=== PATIENT | female | born 1950 | race Caucasian/White ===

== ENCOUNTER 2019-07-08 12:31 | Outpatient (CLI) | payer MEDICARE, MEDICAID, SELFPAY ==
--- NOTE | ~2019-07-08 | US_ITS ---
EXAMINATION: US thyroid DATE: 07/08/2019 13:20 INDICATION: Thyroid nodule TECHNIQUE: Multiple ultrasound images of the thyroid were obtained. COMPARISON: 03/12/2018 and 04/09/2018 FINDINGS: The right thyroid lobe measures 4.4 x 2.1 x 2.0 cm. The left thyroid lobe measures 5.0 x 2.4 x 2.1 c m. Bilateral thyroid nodules. These include a 1.1 cm smooth margined wider than tall predominant cyndi id isoechoic to hypoechoic nodule in the right thyroid (TI-RADS 4, moderately suspicious , FNA if >=1 .5 cm, annual followup is >1 cm). There are several small similar-appearing subcentimeter cysts in th e right thyroid lobe. No interval change in a larger iso to slightly hypoechoic solid nodule or more likely pair of nodules, one with peripheral coarse shadowing calcification at the mid to lower left t hyroid lobe. The nodule/combined nodule measures 3.4 x 1.7 x 2.4 cm, previously measuring 3.4 x 1.7 x 2.2 cm with prior biopsy pathology results of consistent with benign follicular nodule with feature s of colloid cyst. IMPRESSION: 1. Bilateral thyroid nodules with no interval change in the largest 3.4 cm left thyroid nodule (or po tentially closely apposed pair of nodules) with previous benign biopsies. Given the lack of interval growth and no other nodules meeting criteria for biopsy, the initially planned biopsy was canceled. Reviewed, dictated and finalized at location A. TING AGENT IMPRESSION: 1. Bilateral thyroid nodules with no interval change in the largest 3.4 cm left thyroid nodule (or potentially closely apposed pair of nodules) with previous benign biopsies. Given the lack of interval growth and no other nodules meeting criteria for biopsy, the initially planned biopsy was canceled.
== END 2019-07-08 12:32 | disposition home or self-care (01) ==
LOC: ANHIMG 12:33
PROVIDERS: PCP Internal Medicine; Visit Provider Otolaryngology
DX: E04.1 Nontoxic single thyroid nodule (principal)
CPT/HCPCS: 10005; 76536

== ENCOUNTER 2019-07-15 09:44 | Outpatient (CLI) | payer MEDICARE, MEDICAID, SELFPAY ==
[2019-07-15 10:14] LABS: Basophils Percent Auto 0.4 % (0.2-1.2); Eosinophils Absolute Auto 0.1 K/mm3 (0-0.3); Eosinophils Percent Auto 1.7 % (0-4.4); Hematocrit 36.2 % (37.0-47.0); Hemoglobin 10.7 g/dL (12.0-15.0); Immature Granulocyte Absolute 0.02 K/mm3 (0.00-0.031); Immature Granulocyte Percent A 0.3 % (0-0.5); Lymphocytes Absolute Auto 1.66 K/mm3 (0.9-3.2); Lymphocytes Percent Auto 22.9 % (18.3-44.2); Mean Corpuscular HGB Conc 29.6 g/dl (32-36); Mean Corpuscular Hemoglobin 27.1 pg (26-34); Mean Corpuscular Volume 91.6 fl (80-100); Monocytes Absolute Auto 0.4 K/mm3 (0.1-0.6); Monocytes Percent Auto 4.8 % (2.6-8.5); Neutrophils Absolute Auto 5.1 K/mm3 (1.3-6.7); Neutrophils Percent Auto 69.9 % (45.5-73.1); Platelet Count Result 184 k/mm3 (150-375); Red Blood Count 3.95 M/mm3 (4.2-5.4); Red Cell Distribution Width 14.1 % (11.5-14.5); White Blood Count 7.2 K/mm3 (4.5-10.0)
[2019-07-15 10:31] LABS: Alanine Aminotransferase 20 U/L (4-35); Albumin Level 4.1 g/dL (3.5-5.1); Alkaline Phosphatase 126 U/L (38-126); Aspartate Amino Transferase 35 U/L (14-36); Bilirubin,Total 0.4 mg/dL (0.2-1.3); Blood Urea Nitrogen 17 mg/dL (7-17); Calcium 9.1 mg/dL (8.4-10.2); Carbon Dioxide 25 mmol/L (22-30); Chloride 102 mmol/L (98-107); Cholesterol 149 mg/dL (0-200); Estimated Glomerular Filt Rate > 60; Glucose 230 mg/dL (65-105); HDL Direct 25 mg/dL; Potassium 4.5 mmol/L (3.4-5.0); Sodium 138 mmol/L (137-145); Triglycerides 224 mg/dL (<150)
[2019-07-15 10:34] LABS: Hemoglobin A1C 8.1 % (<5.7)
[2019-07-15 10:42] LABS: LDL Cholesterol Direct 86 mg/dL
[2019-07-15 10:47] LABS: Iron 82 ug/dL (37-170)
== END 2019-07-15 09:45 | disposition home or self-care (01) ==
LOC: ANHLAB 09:46
PROVIDERS: PCP Internal Medicine; Visit Provider Internal Medicine
DX: E11.9 Type 2 diabetes mellitus without complications (principal); D64.9 Anemia, unspecified; E78.2 Mixed hyperlipidemia; I10 Essential (primary) hypertension; Z79.899 Other long term (current) drug therapy
CPT/HCPCS: 36415; 80053; 80061; 82728; 83036; 83540; 85025

== ENCOUNTER 2019-07-22 10:31 | Outpatient (CLI) | payer MEDICARE, MEDICAID, SELFPAY ==
[2019-07-22 13:42] LABS: Add Urine Microscopic? YES; Appearance Urine Cloudy (Clear); Bacteria Urine Trace /hpf; Bilirubin Urine Negative (Negative); Blood Urine Negative (Negative); Color Urine Yellow (Yellow); Glucose Urine UA Negative (Negative); Ketones Urine Negative (Negative); Leukocyte Esterase Ur Trace LEU/UL (Negative); Mucus Urine Few /lpf; Nitrate Urine Negative (Negative); Protein Urine Negative (Negative); RBC Urine 0-2 /hpf (0-2); Specific Grav Ur 1.024 (1.001-1.035); Squamous Epithelial Cell Urine Many /hpf (Few); Urobilinogen Urine Negative mg/dL (<2.0)
== END 2019-07-22 10:32 | disposition home or self-care (01) ==
LOC: ANHWCLAB 10:34
PROVIDERS: PCP Internal Medicine; Visit Provider Internal Medicine
DX: R31.9 Hematuria, unspecified (principal)
CPT/HCPCS: 81001

== ENCOUNTER 2019-07-26 09:17 | Outpatient (CLI) | payer MEDICARE, MEDICAID, SELFPAY ==
[2019-07-26 13:25] LABS: Add Urine Microscopic? YES; Appearance Urine Cloudy (Clear); Bilirubin Urine Negative (Negative); Blood Urine Negative (Negative); Color Urine Yellow (Yellow); Glucose Urine UA Negative (Negative); Ketones Urine Negative (Negative); Leukocyte Esterase Ur Negative LEU/UL (Negative); Nitrate Urine Negative (Negative); Protein Urine Negative (Negative); RBC Urine 0-2 /hpf (0-2); Specific Grav Ur 1.018 (1.001-1.035); Squamous Epithelial Cell Urine Many /hpf (Few); Urobilinogen Urine Negative mg/dL (<2.0); WBC Urine 0-3 /hpf
== END 2019-07-26 09:18 | disposition home or self-care (01) ==
LOC: ANHWCLAB 09:20
PROVIDERS: PCP Internal Medicine; Visit Provider Internal Medicine
DX: R31.9 Hematuria, unspecified (principal)
CPT/HCPCS: 81001

== ENCOUNTER 2019-11-04 11:46 | Outpatient (CLI) | payer MEDICARE, MEDICAID, SELFPAY ==
[2019-11-04 12:29] LABS: Hematocrit 31.8 % (37.0-47.0); Hemoglobin 9.3 g/dL (12.0-15.0)
[2019-11-04 12:43] LABS: Alanine Aminotransferase 15 U/L (4-35); Albumin Level 4.1 g/dL (3.5-5.1); Alkaline Phosphatase 130 U/L (38-126); Aspartate Amino Transferase 28 U/L (14-36); Bilirubin,Total 0.3 mg/dL (0.2-1.3); Blood Urea Nitrogen 21 mg/dL (7-17); Carbon Dioxide 22 mmol/L (22-30); Chloride 104 mmol/L (98-107); Cholesterol 120 mg/dL (0-200); Estimated Glomerular Filt Rate > 60; Glucose 184 mg/dL (65-105); HDL Direct 27 mg/dL; Sodium 135 mmol/L (137-145); Triglycerides 152 mg/dL (<150)
[2019-11-04 12:54] LABS: LDL Cholesterol Direct 67 mg/dL
[2019-11-04 13:02] LABS: Hemoglobin A1C 9.8 % (<5.7)
[2019-11-04 13:06] LABS: Iron 46 ug/dL (37-170)
[2019-11-04 13:17] LABS: Percent Iron Saturation 10 % (20-50)
== END 2019-11-04 11:47 | disposition home or self-care (01) ==
PROVIDERS: PCP Internal Medicine; Visit Provider Internal Medicine
DX: Z79.899 Other long term (current) drug therapy (principal); I10 Essential (primary) hypertension; D64.9 Anemia, unspecified; E11.9 Type 2 diabetes mellitus without complications; D50.9 Iron deficiency anemia, unspecified; E78.5 Hyperlipidemia, unspecified
CPT/HCPCS: 36415; 80053; 80061; 82728; 83036; 83540; 83550; 85014; 85018

== ENCOUNTER 2019-12-23 14:39 | Outpatient (CLI) | payer MEDICARE, MEDICAID, SELFPAY ==
--- NOTE | ~2019-12-23 | DEXA_ITS ---
Bone Density Report Name: Antonia Rosales Age: 69 Sex: Female Ethnicity: White Date of : 1950 Indication: postmenopausal; parental hip fracture; hysterectomy; Referring Provider: Hanane Villa Study: Bone densitometry was performed. Exam Date: December 23, 2019 Accession number: [id number] Bone Density: Region BMD T-score Z-score Classification AP Spine (L1-L4) 1.065 0.2 2.3 Normal Femoral Neck (Left) 0.584 -2.4 -0.6 Osteopenia Total Hip (Left) 0.879 -0.5 1.0 Normal Total Hip Bilateral Avg 0.892 -0.4 1.1 Normal Femoral Neck (Right) 0.633 -1.9 -0.1 Osteopenia Total Hip (Right) 0.903 -0.3 1.2 Normal World Health Organization criteria for BMD impression classify patients as: Normal (T-score at or above -1.0), Osteopenia (T-score between -1.0 and -2.5), or Osteoporosis (T-score at or below -2.5). 10-year Fracture Risk(1): Major Osteoporotic Fracture 22% Hip Fracture 10% Reported Risk Factors: [place] (), Neck BMD=0.584, BMI=37.9, parental fracture, smoking (1) FRAX(R) Version 3.08. Fracture probability calculated for an untreated patient. Fracture probability may be lower if the patient has received treatment. Previous Exams: Region Exam Age BMD T-score BMD Change BMD Change Date g/cm2 vs Baseline vs Previous AP Spine(L1-L4) 12/23/2019 69 1.065 0.2 -0.054(-4.8%)# -0.046(-4.1%)# 12/17/2010 60 1.111 0.6 -0.008(-0.7%) -0.008(-0.7%) 12/17/2008 58 1.119 0.7 Total Hip(Left) 12/23/2019 69 0.879 -0.5 -0.124(-12.4%) -0.098(-10.1%) 12/17/2010 60 0.977 0.3 -0.026(-2.6%) -0.026(-2.6%) 12/17/2008 58 1.003 0.5 Total Hip(Right) 12/23/2019 69 0.903 -0.3 -0.130(-12.6%) -0.117(-11.4%) 12/17/2010 60 1.020 0.6 -0.014(-1.3%) -0.014(-1.3%) 12/17/2008 58 1.034 0.8 *Denotes significance at 95% confidence level, LSC for AP Spine = 0.022 g/cm2, LSC for Total Hip = 0.027 g/cm2 Clinical Information Provided by Patient: Parent has had a hip fracture Smokes Has the following medical conditions: Hysterectomy Patient maximum height was 66 No regular weight bearing exercise Drinks caffeinated beverages Onset of menses at age 11 Number of children 4 Impression: The patient has low bone mass, based on the Left Femoral Neck T-score. The patient has an estimated ten-year risk of hip fracture of 10% and an estimated ten-year risk of major fracture of 22%, based on the WHO FRAX algorithm. The paula
--- NOTE | ~2019-12-23 | MMUS_ITS ---
EXAMINATION: MM screen RT diag LT w alek, US breast LT limited HISTORY: Palpable left breast abnormality. TECHNIQUE: Additional 3-D tomosynthesis images of the breasts were performed and synthetic 2-D images were generated. CAD analysis was submitted and interpreted. High resolution left breast ultrasound w as performed. COMPARISON: Comparison to multiple prior studies sequentially, with oldest reviewed study dated 12/17. BREAST PARENCHYMAL COMPOSITION: BREAST PARENCHYMAL COMPOSITION: There are scattered areas of fibroglandular density. FINDINGS: MAMMOGRAPHIC FINDINGS: There are no suspicious masses, calcifications or architectural distortion in either breast to sugges t malignancy. ULTRASOUND: Left breast ultrasound: At 6:00, 5 cm from the nipple in the area of palpable concern there is oval circumscribed hypoechoic mass located in the subcutaneous tissues with circumscribed margins, parallel orientation, no internal investigator al vascularity. There is posterior acoustic enhancement. This mass measures 10 x 7 x 3 mm. IMPRESSION: 1. Probable benign 1 cm subcutaneous mass of the left breast at 6:00, 5 cm from the nipple. 2. Recommend 6 month follow-up left breast ultrasound BI-RADS category 3, probably benign findings. Reviewed, dictated and finalized at location A. IMPRESSION: 1. Probable benign 1 cm subcutaneous mass of the left breast at 6:00, 5 cm from the nipple. 2. Recommend 6 month follow-up left breast ultrasound BI-RADS category 3, probably benign findings.
== END 2019-12-23 14:40 | disposition home or self-care (01) ==
PROVIDERS: PCP Internal Medicine; Visit Provider Internal Medicine
DX: Z12.31 Encounter for screening mammogram for malignant neoplasm of breast (principal); R92.8 Other abnormal and inconclusive findings on diagnostic imaging of breast; Z78.0 Asymptomatic menopausal state; M85.89 Other specified disorders of bone density and structure, multiple sites
CPT/HCPCS: 76642; 77063; 77065; 77067; 77080

== ENCOUNTER 2020-02-17 09:44 | Outpatient (CLI) | payer MEDICARE, MEDICAID, SELFPAY ==
[2020-02-17 10:10] LABS: Hematocrit 40.4 % (37.0-47.0); Hemoglobin 12.2 g/dL (12.0-15.0); Mean Corpuscular HGB Conc 30.2 g/dl (32-36); Mean Corpuscular Volume 92.9 fl (80-100); Mean Platelet Volume 11.4 fl (7.4-10.4); Platelet Count Result 201 k/mm3 (150-375); Red Blood Count 4.35 M/mm3 (4.2-5.4); Red Cell Distribution Width 15.4 % (11.5-14.5)
[2020-02-17 10:21] LABS: Alanine Aminotransferase 22 U/L (4-35); Alkaline Phosphatase 142 U/L (38-126); Anion Gap 9 mmol/L (8-16); Aspartate Amino Transferase 37 U/L (14-36); Bilirubin,Total 0.4 mg/dL (0.2-1.3); Blood Urea Nitrogen 22 mg/dL (7-17); Calcium 9.3 mg/dL (8.4-10.2); Carbon Dioxide 27 mmol/L (22-30); Chloride 105 mmol/L (98-107); Cholesterol 160 mg/dL (0-200); Estimated Glomerular Filt Rate 55; Glucose 177 mg/dL (65-105); HDL Direct 25 mg/dL; Potassium 4.9 mmol/L (3.4-5.0); Sodium 141 mmol/L (137-145); Triglycerides 243 mg/dL (<150)
[2020-02-17 10:32] LABS: LDL Cholesterol Direct 96 mg/dL
[2020-02-17 10:36] LABS: Iron 53 ug/dL (37-170)
[2020-02-17 10:45] LABS: Percent Iron Saturation 13 % (20-50)
[2020-02-17 13:59] LABS: Creatinine Urine 66.1 mg/dL
[2020-02-17 14:07] LABS: MALB Creatinine Ratio < 9.1 mg/g (0-30); Microalbumin Urine Random < 6.0 mg/L (0-16.7)
== END 2020-02-17 09:45 | disposition home or self-care (01) ==
PROVIDERS: PCP Internal Medicine; Visit Provider Nurse Practitioner
DX: D50.9 Iron deficiency anemia, unspecified (principal); E11.9 Type 2 diabetes mellitus without complications
CPT/HCPCS: 36415; 80053; 80061; 82043; 83036; 83540; 83550; 85027

== ENCOUNTER 2020-03-02 16:25 | Outpatient (CLI) | payer MEDICARE, MEDICAID, SELFPAY ==
--- NOTE | ~2020-03-02 | CT_ITS ---
EXAMINATION: CT lung screening DATE: 03/02/2020 16:42 INDICATION: Personal history of tobacco dependence, current smoker with 50 pack year history TECHNIQUE: Computed tomography (CT) of the chest was performed without intravenous contrast. The dose -length product (DLP) was 568.62 mGy-cm. Automated exposure control and iterative reconstruction tech Qlusters were employed. COMPARISON: 03/12/2018 FINDINGS: There is mild emphysema. No suspicious pulmonary nodules are identified. The lungs are free of acute opacities. There is chronic atelectasis of the right middle lobe and lingula. No pleural ef fusion or pneumothorax is identified. There is enlargement of the main and central pulmonary arteries , consistent with pulmonary hypertension. No pathologically enlarged thoracic lymph nodes are identif ied. The heart size is normal. Epicardial lymph nodes are again identified which are upper limits of normal in size. There is cirrhosis of the liver. There is moderate thoracic spondylosis. IMPRESSION: 1. Lung-RADS category 1: Negative. Continue annual screening with noncontrast low-dose chest CT in 12 months. Reviewed, dictated and finalized at location A. IMPRESSION: 1. Lung-RADS category 1: Negative. Continue annual screening with noncontrast l ow-dose chest CT in 12 months.
== END 2020-03-02 16:26 | disposition home or self-care (01) ==
PROVIDERS: PCP Internal Medicine; Visit Provider Internal Medicine
DX: Z12.2 Encounter for screening for malignant neoplasm of respiratory organs (principal); Z87.891 Personal history of nicotine dependence
CPT/HCPCS: G0297

== ENCOUNTER 2020-03-23 00:16 | Outpatient (CLI) | payer MEDICARE, MEDICAID, SELFPAY ==
[2020-03-23 19:58] LABS: SARS-CoV-2 RNA PCR Negative
== END 2020-03-23 00:17 | disposition home or self-care (01) ==
LOC: ANHCOVIDDT 00:21
PROVIDERS: PCP Internal Medicine; Visit Provider Internal Medicine Gastroenterology
DX: Z01.812 Encounter for preprocedural laboratory examination (principal); Z20.828 Contact with and (suspected) exposure to other viral communicable diseases
CPT/HCPCS: 87635; C9803; U0003

== ENCOUNTER 2020-03-25 02:30 | Day surgery (SDC) | payer MEDICARE, MEDICAID, SELFPAY ==
[2020-03-20 09:11] VITALS: BMI 39.2
[2020-03-25 07:32] VITALS: BP 131/58; PULSE 82; RESP 18; TEMP 36.8; O2SAT 97; BMI 39.4
[2020-03-25] MEDS: LACTATED RINGERS 1,000 ML 150 ML IV CONT (07:44)
[2020-03-25 07:49] LABS: Glucose Point of Care 160 (65-105)
--- NOTE | 2020-03-25 08:11 | WPDGICN ---
Assessment and Plan Assessment and plan (1) Esophageal varices without bleeding: Code(s): I85.00 - Esophageal varices without bleeding Status: Acute (2) Iron deficiency anemia: Code(s): D50.9 - Iron deficiency anemia, unspecified Status: Acute Assessment and Plan: Patient remains on ferrous sulfate iron replacement. Continue monitor hemoglobin closely. (3) LUQ abdominal pain: Code(s): R10.12 - Left upper quadrant pain Status: Acute Assessment and Plan: In view of patient's left upper quadrant pain, anemia. In history of esophageal varices follow-up EGD will be performed at this time. Further recommendations will be given after endoscopy. She is currently on a trial of pantoprazole with no change in symptoms. GI Consult Note Consult date/time: 03/25/20 08:11 HPI: Antonia Rosales is a 69 year old female seen in evaluation at the request of Dr Artur Henning. patient recently found to have iron deficient indices on routine screening exam. Patient denies any obvious signs of GI bleeding. She complains of ongoing left upper quadrant pain that is persistent. Not related to diet or activity. She has been placed on pantoprazole, has not helped currently. Patient denies any weight loss. Her past medical history is significant for diabetes. In 2017 she had a hamartoma removed from the colon. In 2017 had small esophageal varices identified. Current medications include iron and pantoprazole. Review of Systems Review of Systems: All systems reviewed & are unremarkable except as noted in HPI and below PMFSH Past Medical History Medical History (Updated 03/25/20 @ 08:14 by Christian Palmer MD) Postmenopausal Screening for breast cancer Family History Family History Mother Depression Family history of liver disease Family history of arthritis Father Family history of chronic obstructive pulmonary disease Family history of lung cancer Family history of primary malignant neoplasm of liver Social History Social History Years smoked: 50 Smoking status: Current every day smoker Tobacco type: cigarettes Second hand tobacco smoke exposure: Yes Additional smoking assessment comments: SMOKES 2 CIGS PER DAY Alcohol intake: never Substance use: never Substance use type: does not use Living arrangements: alone Spiritual care concerns: No Meds Home Medications and Allergies Home Medications Medication Instructions Recorded Confirmed Type pantoprazole 40 mg tablet,delayed 40 mg PO QAM 03/29/19 03/20/20 History release pioglitazone 30 mg tablet 30 mg PO DAILY #10 tablet 05/20/19 03/20/20 Rx amlodipine 10 mg tablet 10 mg PO DAILY #90 tablet 10/15/19 03/25/20 Rx glimepiride 2 mg tablet 2 mg PO QAM #90 tablet 10/15/19 03/20/20 Rx metformin 1,000 mg tablet 1,000 mg PO BID #180 tablet 10/15/19 03/20/20 Rx spironolactone 25 mg tablet 25 mg PO DAILY #90 tablet 10/15/19 03/20/20 Rx valsartan 160 mg tablet 160 mg PO DAILY #90 tablet 10/15/19 03/20/20 Rx nadolol 20 mg tablet 20 mg PO DAILY #90 tablet 10/30/19 03/20/20 Rx venlafaxine 150 mg 150 mg PO DAILY #90 cap 11/01/19 03/20/20 Rx capsule,extended release 24 hr empagliflozin 25 mg tablet 25 mg PO DAILY #30 tablet 11/04/19 03/20/20 Rx pen needle, diabetic 32 gauge x #100 each 11/29/19 02/24/20 Rx 3/ blood sugar diagnostic #200 strip 12/26/19 02/24/20 Rx insulin glargine 100 unit/mL (3 See Rx Instructions .ROUTE 01/13/20 03/20/20 Rx mL) subcutaneous pen .COMPLEX #15 ml ferrous sulfate 325 mg (65 mg 325 mg PO BID #180 tablet 02/24/20 03/20/20 Rx iron) tablet atorvastatin 40 mg tablet 20 mg PO DAILY #90 tablet 03/09/20 03/20/20 Rx mecobalamin (vitamin B12) 1,000 mcg PO DAILY 03/20/20 03/20/20 History qofrbqllvmxu-lsc-nmcq-FA-vit K 1 tablet PO DAILY 03/20/20 03/20/20 History [Adults M
--- NOTE | 2020-03-25 08:22 | WPDANESEPPF ---
Anes - Initial Pre Proc Eval Procedure: Operation Date: 03/25/20 08:30 Proposed Procedures p Esophagogastroduodenoscopy - Christian Palmer MD Date/Time: 03/25/20 08:22 Surgeon: Christian Palmer MD Pre Op Diagnosis: Esophageal Varices/ Iron Deficiency Anemia Patient Data Age: 69 Gender: F Height: 5 ft 6 in Weight: 110.8 kg Last Vital Signs Temp 36.8 C 03/25/20 07:32 Pulse 82 03/25/20 07:32 Resp 18 03/25/20 07:32 BP 131/58 L 03/25/20 07:32 Pulse Ox 97 03/25/20 07:32 Allergies Allergy/AdvReac Type Severity Reaction Status Date / Time adhesive tape Allergy Unknown Hives Verified 03/25/20 07:30 Home Medications Medication Instructions Recorded Confirmed Type pantoprazole 40 mg tablet,delayed 40 mg PO QAM 03/29/19 03/20/20 History release pioglitazone 30 mg tablet 30 mg PO DAILY #10 tablet 05/20/19 03/20/20 Rx amlodipine 10 mg tablet 10 mg PO DAILY #90 tablet 10/15/19 03/25/20 Rx glimepiride 2 mg tablet 2 mg PO QAM #90 tablet 10/15/19 03/20/20 Rx metformin 1,000 mg tablet 1,000 mg PO BID #180 tablet 10/15/19 03/20/20 Rx spironolactone 25 mg tablet 25 mg PO DAILY #90 tablet 10/15/19 03/20/20 Rx valsartan 160 mg tablet 160 mg PO DAILY #90 tablet 10/15/19 03/20/20 Rx nadolol 20 mg tablet 20 mg PO DAILY #90 tablet 10/30/19 03/20/20 Rx venlafaxine 150 mg 150 mg PO DAILY #90 cap 11/01/19 03/20/20 Rx capsule,extended release 24 hr empagliflozin 25 mg tablet 25 mg PO DAILY #30 tablet 11/04/19 03/20/20 Rx pen needle, diabetic 32 gauge x #100 each 11/29/19 02/24/20 Rx 3/16 blood sugar diagnostic #200 strip 12/26/19 02/24/20 Rx insulin glargine 100 unit/mL (3 See Rx Instructions .ROUTE 01/13/20 03/20/20 Rx mL) subcutaneous pen .COMPLEX #15 ml ferrous sulfate 325 mg (65 mg 325 mg PO BID #180 tablet 02/24/20 03/20/20 Rx iron) tablet atorvastatin 40 mg tablet 20 mg PO DAILY #90 tablet 03/09/20 03/20/20 Rx mecobalamin (vitamin B12) 1,000 mcg PO DAILY 03/20/20 03/20/20 History kavcicejwcgc-ddh-otkp-FA-vit K 1 tablet PO DAILY 03/20/20 03/20/20 History [Adults Multivitamin] linagliptin 5 mg tablet 5 mg PO QAM #90 tablet 03/24/20 03/25/20 Rx Laboratory Tests 03/25/20 07:42 POC Capillary Glucose 160 mg/dl H mg/dl (65-105) Patient hx anesthesia problems: none Family hx anesthesia problems: none PMFSH Past Medical History Medical History Anxiety and depression Benign essential hypertension Cirrhosis of liver without ascites Mixed hyperlipidemia Postmenopausal Screening for breast cancer Type 2 diabetes mellitus without complication, without long-term current use of insulin Family History Family History Mother Depression Family history of liver disease Family history of arthritis Father Family history of chronic obstructive pulmonary disease Family history of lung cancer Family history of primary malignant neoplasm of liver Social History Social History Years smoked: 50 Smoking status: Current every day smoker Tobacco type: cigarettes Second hand tobacco smoke exposure: Yes Additional smoking assessment comments: SMOKES 2 CIGS PER DAY Alcohol intake: never Substance use: never Substance use type: does not use Living arrangements: alone Spiritual care concerns: No Anes - Eval Final PreProcedure Day of Procedure 03/25/20 08:22 Patient weight: morbidly obese Heart: regular rate and rhythm Lungs: clear to auscultation Airway: Mallampati scale class II Neurological: alert and oriented Last oral intake: >/= 8 hours ASA classification: III Emergent: no Anesthetic plan: proceed Anesthesia type and monitoring: general GIVS and standard monitoring Informed Consent: The patient's anesthetic plan and its attendant risks and benefits were discussed with the patient/family/POScott Young
[2020-03-25 09:11] VITALS: BP 108/61; PULSE 78; RESP 22; O2SAT 96
[2020-03-25 09:21] VITALS: BP 120/64; PULSE 75; RESP 21; O2SAT 97
[2020-03-25 09:27] LABS: Glucose Point of Care 151 (65-105)
[2020-03-25 09:31] VITALS: BP 135/67; PULSE 74; RESP 22; O2SAT 95
[2020-03-25 09:47] LABS: Basophils Percent Auto 0.5 % (0.2-1.2); Eosinophils Absolute Auto 0.1 K/mm3 (0-0.3); Eosinophils Percent Auto 1.3 % (0-4.4); Hematocrit 37.9 % (37.0-47.0); Hemoglobin 11.4 g/dL (12.0-15.0); Immature Granulocyte Absolute 0.01 K/mm3 (0.00-0.031); Immature Granulocyte Percent A 0.2 % (0-0.5); Lymphocytes Absolute Auto 1.41 K/mm3 (0.9-3.2); Lymphocytes Percent Auto 23.6 % (18.3-44.2); Mean Corpuscular HGB Conc 30.1 g/dl (32-36); Mean Corpuscular Hemoglobin 27.9 pg (26-34); Mean Corpuscular Volume 92.7 fl (80-100); Mean Platelet Volume 11.2 fl (7.4-10.4); Monocytes Absolute Auto 0.4 K/mm3 (0.1-0.6); Monocytes Percent Auto 6.4 % (2.6-8.5); Neutrophils Absolute Auto 4.1 K/mm3 (1.3-6.7); Platelet Count Result 172 k/mm3 (150-375); Red Blood Count 4.09 M/mm3 (4.2-5.4); Red Cell Distribution Width 14.6 % (11.5-14.5)
== END 2020-03-25 09:55 | disposition home or self-care (01) ==
PROVIDERS: PCP Internal Medicine; Visit Provider Internal Medicine Gastroenterology
PROC: 0DJ08ZZ Inspection of Upper Intestinal Tract, Via Natural or Artificial Opening Endoscopic (ICD-10-PCS; CPT 43235; principal; 2020-03-25 08:30)
DX: R10.13 Epigastric pain (principal); D50.9 Iron deficiency anemia, unspecified; I85.00 Esophageal varices without bleeding; F17.210 Nicotine dependence, cigarettes, uncomplicated; Z79.84 Long term (current) use of oral hypoglycemic drugs; Z79.4 Long term (current) use of insulin; F41.8 Other specified anxiety disorders; I10 Essential (primary) hypertension; E11.9 Type 2 diabetes mellitus without complications; E78.2 Mixed hyperlipidemia; K74.60 Unspecified cirrhosis of liver; E66.01 Morbid (severe) obesity due to excess calories; Z68.39 Body mass index [BMI] 39.0-39.9, adult
CPT/HCPCS: 43235; 36415; 85025; J2704; J7120

== ENCOUNTER 2020-06-29 11:19 | Outpatient (CLI) | payer MEDICARE, MEDICAID, SELFPAY ==
--- NOTE | ~2020-06-29 | US_ITS ---
US breast LT limited DATE: 06/29/2020 11:52 INDICATION: 1 cm subcutaneous mass of left breast at 6:00 5 cm from nipple reported on 12/23/2019 limit ed left breast ultrasound TECHNIQUE: High-resolution ultrasound imaging from 5-7 o'clock COMPARISON: 12/23/2019 limited left breast ultrasound FINDINGS: There has been interval resolution of the previously reported subcutaneous 3 x 6.7 mm nodul e at 6:00 5 cm from the nipple. IMPRESSION: BI-RADS Category 1: Negative Reviewed, dictated and finalized at Location A. Reviewed, dictated and finalized at location A. GER CORPORATE
== END 2020-06-29 11:20 | disposition home or self-care (01) ==
PROVIDERS: PCP Internal Medicine; Visit Provider Nurse Practitioner
DX: R92.8 Other abnormal and inconclusive findings on diagnostic imaging of breast (principal)
CPT/HCPCS: 76642

== ENCOUNTER 2020-07-24 10:28 | Outpatient (CLI) | payer MEDICARE, SELFPAY | END 2020-07-24 10:29 | disposition home or self-care (01) | PROVIDERS: PCP Internal Medicine | DX: Z23 Encounter for immunization (principal) | CPT/HCPCS: 0001A; 91300 ==

== ENCOUNTER 2020-08-12 08:28 | Outpatient (CLI) | payer MEDICARE, SELFPAY ==
[2020-08-12 08:58] LABS: Hematocrit 38.2 % (37.0-47.0); Hemoglobin 11.6 g/dL (12.0-15.0)
[2020-08-12 09:08] LABS: Hemoglobin A1C 6.6 % (<5.7)
[2020-08-12 09:16] LABS: Alanine Aminotransferase 23 U/L (4-35); Albumin Level 4.2 g/dL (3.5-5.1); Alkaline Phosphatase 135 U/L (38-126); Anion Gap 7 mmol/L (8-16); Aspartate Amino Transferase 44 U/L (14-36); Bilirubin,Total 0.4 mg/dL (0.2-1.3); Blood Urea Nitrogen 24 mg/dL (7-17); Calcium 9.3 mg/dL (8.4-10.2); Carbon Dioxide 23 mmol/L (22-30); Chloride 107 mmol/L (98-107); Cholesterol 136 mg/dL (0-200); Estimated Glomerular Filt Rate 55; Glucose 163 mg/dL (65-105); HDL Direct 33 mg/dL; Potassium 4.8 mmol/L (3.4-5.0); Sodium 137 mmol/L (137-145); Triglycerides 222 mg/dL (<150)
[2020-08-12 09:23] LABS: Iron 75 ug/dL (37-170)
[2020-08-12 09:27] LABS: Creatinine Urine 58.5 mg/dL; LDL Cholesterol Direct 67 mg/dL
[2020-08-12 09:32] LABS: MALB Creatinine Ratio 14.2 mg/g (0-30); Microalbumin Urine Random 8.3 mg/L (0-16.7); Percent Iron Saturation 18 % (20-50)
== END 2020-08-12 08:29 | disposition home or self-care (01) ==
PROVIDERS: PCP Internal Medicine; Visit Provider Internal Medicine
DX: E11.9 Type 2 diabetes mellitus without complications (principal); I10 Essential (primary) hypertension; D50.9 Iron deficiency anemia, unspecified; D64.9 Anemia, unspecified; E78.5 Hyperlipidemia, unspecified
CPT/HCPCS: 36415; 80053; 80061; 82043; 82728; 83036; 83540; 83550; 85014; 85018

== ENCOUNTER 2020-08-14 10:27 | Outpatient (CLI) | payer MEDICARE, SELFPAY | END 2020-08-14 10:28 | disposition home or self-care (01) | LOC: ANHCOVIDVC 10:27 | PROVIDERS: PCP Internal Medicine | DX: Z23 Encounter for immunization (principal) | CPT/HCPCS: 0002A; 91300 ==

== ENCOUNTER 2020-08-17 11:59 | Outpatient (CLI) | payer MEDICARE, SELFPAY ==
--- NOTE | ~2020-08-17 | US_ITS ---
EXAMINATION: US venous doppler LE RT DATE: 08/17/2020 12:48 INDICATION: Right lower limb pain TECHNIQUE: Grayscale ultrasound images without and with compression and Doppler ultrasound images of the right lower extremity veins were obtained. COMPARISON: None. FINDINGS: The visualized portions of right common femoral vein, profunda (deep) femoral vein, femoral vein, pop liteal vein, peroneal trunk, posterior tibial veins, peroneal veins, gastrocnemius vein and greater s aphenous vein outflow are patent. IMPRESSION: 1. No deep venous thrombosis in the right lower limb. Reviewed, dictated and finalized at location A.
== END 2020-08-17 12:00 | disposition home or self-care (01) ==
LOC: ANHIMG 12:00
PROVIDERS: PCP Internal Medicine; Visit Provider Nurse Practitioner
DX: M79.604 Pain in right leg (principal)
CPT/HCPCS: 93971

== ENCOUNTER 2020-09-01 08:52 | Outpatient (CLI) | payer MEDICARE, SELFPAY ==
--- NOTE | ~2020-09-01 | US_ITS ---
EXAMINATION: US abdomen limited EXAM DATE: 09/01/2020 09:25 INDICATION: Abnormal labs. TECHNIQUE: Multiple grayscale and Doppler images of the abdomen right upper quadrant were obtained (b y a technologist who performed the scan) and subsequently reviewed. Correlation is made to 03/12/2018 . FINDINGS: The pancreatic head and body are normal in appearance. The pancreatic tail is not visualized. Mildl y heterogeneous liver parenchyma with some surface undulations, consistent with cirrhosis. There are no focal liver lesions identified. There is no evidence of intrahepatic biliary duct dilation. Por mattie venous flow was seen in the hepatopedal, normal direction and has normal Doppler waveform. No ri ght-sided hydronephrosis. Common bile duct measures 8 mm, which is mildly dilated but not uncommon for postcholecystectomy stat us. IMPRESSION: Cirrhosis. Reviewed, dictated and finalized at location A. IMPRESSION: Cirrhosis.
== END 2020-09-01 08:53 | disposition home or self-care (01) ==
PROVIDERS: PCP Internal Medicine; Visit Provider Nurse Practitioner
DX: K74.69 Other cirrhosis of liver (principal)
CPT/HCPCS: 76705

== ENCOUNTER 2020-10-28 08:51 | Outpatient (CLI) | payer MEDICARE, SELFPAY | END 2020-10-28 08:52 | disposition home or self-care (01) | PROVIDERS: PCP Internal Medicine; Visit Provider Nurse Practitioner | DX: R19.7 Diarrhea, unspecified (principal) | CPT/HCPCS: 87045; 87046; 87324; 87427 ==

== ENCOUNTER 2021-04-22 09:02 | Outpatient (CLI) | payer MEDICARE, SELFPAY ==
--- NOTE | 2021-04-22 11:00 | NEURO_ITS ---
Impression: # Complains of numbness and nocturnal paresthesia of hands. # Bilateral Carpal Tunnel Syndrome. 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 # Needle/EMG exam mildly abnormal in bilateral APB and 1st DI. Nerve Conduction Studies Anti Sensory Summary Table Stim Site NR Peak (ms) P-T Amp (?V) Site1 Site2 Delta-P (ms) Dist (cm) Jaskaran (m/s) Left Median Anti Sensory (2-3nd Digit) Wrist 3.0 38.7 Wrist 2-3nd Digit 3.0 14.0 47 Wrist 3.0 59.4 Wrist 2-3nd Digit 3.0 14.0 47 Right Median Anti Sensory (2-3nd Digit) Wrist 3.3 22.5 Wrist 2-3nd Digit 3.3 14.0 42 Wrist 3.1 64.0 Wrist 2-3nd Digit 3.3 14.0 42 Left Radial Anti Sensory (Base 1st Digit) Wrist 2.1 18.9 Wrist Base 1st Digit 2.1 0.0 Right Radial Anti Sensory (Base 1st Digit) Wrist 2.5 15.1 Wrist Base 1st Digit 2.5 0.0 Left Ulnar Anti Sensory (5th Digit) Wrist 2.4 32.7 Wrist 5th Digit 2.4 14.0 58 Right Ulnar Anti Sensory (5th Digit) Wrist 2.7 21.5 Wrist 5th Digit 2.7 14.0 52 Motor Summary Table Stim Site NR Onset (ms) O-P Amp (mV) Site1 Site2 Delta-0 (ms) Dist (cm) Jaskaran (m/s) Left Median Motor (Abd Poll Brev) Wrist 5.2 1.8 Elbow Wrist 5.5 29.0 53 Elbow 10.7 2.5 Right Median Motor (Abd Poll Brev) Wrist 5.2 1.1 Elbow Wrist 5.6 28.0 50 Elbow 10.8 2.4 Left Ulnar Motor (Abd Dig Minimi) Wrist 2.7 5.1 A Elbow Wrist 6.1 28.0 46 A Elbow 8.8 3.7 B Elbow Wrist 4.6 24.0 52 B Elbow 7.3 3.4 Right Ulnar Motor (Abd Dig Minimi) Wrist 2.7 5.0 A Elbow Wrist 6.0 28.0 47 A Elbow 8.7 1.7 B Elbow Wrist 3.8 21.0 55 B Elbow 6.5 1.6 F Wave Studies NR F-Lat (ms) L-R F-Lat (ms) Left Median (Mrkrs) (Abd Poll Brev) 28.80 1.66 Right Median (Mrkrs) (Abd Poll Brev) 30.46 1.66 Left Ulnar (Mrkrs) (Abd Dig Min) 29.96 2.67 Right Ulnar (Mrkrs) (Abd Dig Min) 27.29 2.67 EMG Side Muscle Nerve Root Ins Act Fibs Amp Dur Recrt Comment Right 1stDorInt Ulnar C8-T1 Nml Nml Nml >12ms Reduced Right Ext Indicis Radial (Post Int) C7-8 Nml Nml Nml Nml Nml Right Ext Digitorum Radial (Post Int) C7-8 Nml Nml Nml Nml Nml Right BrachioRad Radial C5-6 Nml Nml Nml Nml Nml Right PronatorTeres Median C6-7 Nml Nml Nml Nml Nml Right Abd Poll Brev Median C8-T1 Nml Nml Nml >12ms Reduced Left 1stDorInt Ulnar C8-T1 Nml Nml Nml >12ms Reduced Left Ext Indicis Radial (Post Int) C7-8 Nml Nml Nml Nml Nml Left Ext Digitorum Radial (Post Int) C7-8 Nml Nml Nml Nml Nml Left BrachioRad Radial C5-6 Nml Nml Nml Nml Nml Left PronatorTeres Median C6-7 Nml Nml Nml Nml Nml Left Abd Poll Brev Median C8-T1 Nml Nml Nml >12ms Reduced Right ABD Dig Min Ulnar C8-T1 Nml Nml Nml Nml Nml Left ABD Dig Min Ulnar C8-T1 Nml Nml Nml Nml Nml MTDD
== END 2021-04-22 09:03 | disposition home or self-care (01) ==
LOC: ANHNEURO 09:03
PROVIDERS: PCP Internal Medicine; Visit Provider Internal Medicine
DX: G56.03 Carpal tunnel syndrome, bilateral upper limbs (principal); G56.23 Lesion of ulnar nerve, bilateral upper limbs; R20.2 Paresthesia of skin
CPT/HCPCS: 95886; 95911

== ENCOUNTER 2021-05-24 12:05 | Outpatient (CLI) | payer MEDICARE, SELFPAY ==
--- NOTE | ~2021-05-24 | XR_ITS ---
EXAMINATION: XR knee LT 3V, XR tibia fibula LT 2V DATE: 05/24/2021 12:26 INDICATION: Anterior left knee and lower leg pain post fall. TECHNIQUE: 1. Anteroposterior, sunrise and crosstable lateral views of the left knee were obtained 2. AP and lateral views of the left lower leg were obtained. COMPARISON: None. FINDINGS: Alignment is normal. No fracture. Subtle chondrocalcinosis in the medial and lateral compartments of the knee. Joint spaces appear normal on nonweightbearing imaging. No left knee joint effusion/layeri ng lipohemarthrosis. Mild enthesopathic calcification at the distal quadriceps tendon. No left ankle joint effusion. Mild soft tissue swelling anterior to the proximal tibia. IMPRESSION: 1. No acute osseous abnormality at the left knee or lower leg. Reviewed, dictated and finalized at location B. ENDER MAKER IMPRESSION: 1. No acute osseous abnormality at the left knee or lower leg.
== END 2021-05-24 12:06 | disposition home or self-care (01) ==
LOC: ANHIMG 12:12
PROVIDERS: PCP Internal Medicine; Visit Provider Nurse Practitioner
DX: M79.605 Pain in left leg (principal); M25.562 Pain in left knee
CPT/HCPCS: 73562; 73590

== ENCOUNTER 2021-08-11 13:27 | Outpatient (CLI) | payer MEDICARE, SELFPAY ==
--- NOTE | ~2021-08-11 | XR_ITS ---
XR abdomen/kub 1V 08/11/2021 13:45 Indication: Gross hematuria. History of UTI. Procedure: KUB Comparison: No prior studies for comparison. Findings: Bowel gas pattern is nonobstructive. Moderate colonic fecal loading. No obstruction. There are probable splenic artery calcifications in the left upper abdomen. There are cholecystectomy clips . Lung bases unremarkable. Moderate lumbar spondylosis. Impression: 1: Nonobstructive bowel gas pattern. Reviewed, dictated and finalized at location A. Impression: 1: Nonobstructive bowel gas pattern.
--- NOTE | ~2021-08-11 | CT_ITS ---
EXAMINATION: CT abdomen pelvis wo/w con DATE: 08/11/2021 14:09 INDICATION: Gross hematuria TECHNIQUE: Computed tomography (CT) of the abdomen and pelvis was performed without intravenous contr ast. CT of the abdomen and pelvis was then performed with a total of 130 mL Omnipaque 350 intravenous contrast using a double-bolus technique for simultaneous opacification of the renal parenchyma and r enal collecting system. The dose-length product (DLP) was 2904.73 mGy-cm. Automated exposure control and iterative reconstruction technique were employed. COMPARISON: 03/12/2018 FINDINGS: The lung bases are clear. The heart size is normal. There is nodularity of the liver surfac e. The gallbladder is surgically absent. There is mild enlargement of the common bile duct and centra l intrahepatic ducts which is likely due to post cholecystectomy state. The spleen, pancreas, and adr enal glands are normal. No stones are identified in the kidneys, ureters, or bladder. There is no hyd ronephrosis or hydroureter. No suspicious renal or urothelial lesion is identified. There is mild per iportal lymphadenopathy. There is no free intraperitoneal gas or evidence of bowel obstruction. There is no free intraperitoneal gas or evidence of bowel obstruction. The appendix is normal. There is a bone island of the left sacrum. There is severe lumbar spondylosis. IMPRESSION: 1. No CT correlate for the patient's symptoms. 2. Cirrhosis. 3. Chronic periportal lymphadenopathy, likely reactive. Reviewed, dictated and finalized at location B.
[2021-08-11 13:54] LABS: Estimated Glomerular Filt Rate 49
== END 2021-08-11 13:28 | disposition home or self-care (01) ==
PROVIDERS: PCP Internal Medicine; Visit Provider Nurse Practitioner Adult Health
DX: R31.0 Gross hematuria (principal); K74.60 Unspecified cirrhosis of liver; R59.1 Generalized enlarged lymph nodes; M47.816 Spondylosis without myelopathy or radiculopathy, lumbar region
CPT/HCPCS: 74018; 74178; Q9967

== ENCOUNTER 2021-08-30 15:36 | Outpatient (CLI) | payer MEDICARE, SELFPAY ==
--- NOTE | ~2021-08-30 | US_ITS ---
EXAMINATION: US thyroid DATE: 08/30/2021 18:00 INDICATION: Nontoxic single thyroid nodule. TECHNIQUE: Multiple ultrasound images of the thyroid were obtained. COMPARISON: Ultrasound 07/08/2019, 03/12/2018, 01/15/2017 FINDINGS: The right thyroid lobe measures 4.8 x 1.7 x 2.1 cm. The left thyroid lobe measures 5.5 x 2.1 x 2.4 c m. In the right thyroid lobe, there is a 1.1 cm solid, hypoechoic, qnhre-rcwc-sivz nodule with lobul ated margin without echogenic foci (TI-RADS TR4). In the right thyroid lobe, there is a 9 mm mixed cy stic and solid, hypoechoic, cfbhf-ljjc-wtmh nodule with smooth margin without echogenic foci (TR3). I n the right thyroid lobe, there is a 9 mm solid, hypoechoic, pdsre-okgl-eaog nodule with ill-defined margin with punctate echogenic foci (TR5). In the left thyroid lobe, there is a 2.3 cm solid, hypoech oic, bkvee-hoag-ozwh nodule with smooth margin without echogenic foci (TR4), stable from 04/09/18 whe n biopsy was benign. In the left thyroid lobe, there is a 1.1 cm solid, hypoechoic, htmmp-smgy-fcci n odule with ill-defined margin and peripheral calcifications (TR4). In the left thyroid lobe, there is a 10 mm solid, hypoechoic, zqwrp-bdew-butt nodule with lobulated margin without echogenic foci (TR4) . IMPRESSION: 1. Multinodular goiter with some nodules not proved to be stable from prior exams. Thyroid ultrasound is recommended in one year. Reviewed, dictated and finalized at location A. IMPRESSION: 1. Multinodular goiter with some nodules not proved to be stable from prior exa ms. Thyroid ultrasound is recommended in one year.
== END 2021-08-30 15:37 | disposition home or self-care (01) ==
LOC: ANHIMG 15:37
PROVIDERS: PCP Internal Medicine; Visit Provider Nurse Practitioner
DX: R79.89 Other specified abnormal findings of blood chemistry (principal); E04.2 Nontoxic multinodular goiter
CPT/HCPCS: 76536

== ENCOUNTER 2021-11-25 09:45 | Emergency (ER) | payer OTHER, MEDICARE, SELFPAY ==
--- NOTE | ~2021-11-25 | XR_ITS ---
EXAMINATION: XR wrist LT min 3V DATE: 11/25/2021 10:03 INDICATION: Left wrist pain TECHNIQUE: Four and lateral views of the left wrist were obtained. COMPARISON: 01/13/2017 FINDINGS: There is medial soft tissue swelling of the wrist. Chondrocalcinosis is noted. A thin curvi linear density projects between the lunate and trapezium. There is moderate osteoarthritis at the fir st carpometacarpal joint. Bone alignment is normal. IMPRESSION: 1. Medial soft tissue swelling of the wrist with small curvilinear density projecting between the kelechi ate and trapezium which could reflect small fracture versus chondrocalcinosis. Reviewed, dictated and finalized at location B. IMPRESSION: 1. Medial soft tissue swelling of the wrist with small curvilinear density proj ecting between the lunate and trapezium which could reflect small fracture vers us chondrocalcinosis.
[2021-11-25 09:53] VITALS: BP 142/71; PULSE 81; RESP 16; TEMP 36.4; O2SAT 98
--- NOTE | 2021-11-25 10:04 | ED.UPPEXIN ---
HPI - Extremity Injury (Upper) General Chief Complaint: Extremity Injury, Upper Stated Complaint: left arm pain Time Seen by Provider: 11/25/21 10:04 Source: patient Mode of arrival: ambulatory Limitations: no limitations History of Present Illness HPI narrative: 71 yo F presents with c/o pain, bruising and swelling to L wrist. states she was walking in her driveway today to her car and tripped over her own feet . Put arms out to catch herself. did not hit head. denies LOC. reports bilateral carpel tunnel in the spring. All systems reviewed and negative except as noted above. Related Data Home Medications Medication Instructions Recorded Confirmed mecobalamin (vitamin B12) 1,000 1,000 mcg PO DAILY 03/20/20 08/23/21 mcg chewable tablet oxybutynin chloride 10 mg 10 mg PO DAILY 10/27/20 08/23/21 tablet,extended release 24 hr cholecalciferol (vitamin D3) 1,250 1,000 mcg PO DAILY 08/23/21 08/23/21 mcg (50,000 unit) tablet trimethoprim 100 mg tablet 100 mg PO DAILY 08/23/21 08/23/21 mirabegron 25 mg tablet,extended tablet PO 11/25/21 release 24 hr (Myrbetriq) Allergies Allergy/AdvReac Type Severity Reaction Status Date / Time adhesive tape Allergy Unknown Hives Verified 08/23/21 08:29 Review of Systems Review of Systems: CONSTITUTIONAL: Denies fever, chills, or sweats. EYES: Denies visual changes, redness, or discharge. ENT: Denies rhinorrhea, congestion, sore throat, or otalgia. CARDIOVASCULAR: Denies chest pain, palpitations, or edema. RESPIRATORY: Denies cough or dyspnea. GASTROINTESTINAL: Denies abdominal pain, nausea, vomiting, or diarrhea. GENITOURINARY: Denies dysuria or hematuria. SKIN: Denies rash or itching. MUSCULOSKELETAL: Reports L wrist pain, swelling, bruising after fall. NEUROLOGIC: Denies headache, numbness, or weakness. PSYCHIATRIC: Denies anxiety or depression. All other systems reviewed are negative, except as documented in HPI. [facility] Past Medical History Medical History Anxiety and depression Benign essential hypertension Cirrhosis of liver without ascites Mixed hyperlipidemia Postmenopausal Screening for breast cancer Type 2 diabetes mellitus without complication, without long-term current use of insulin Family History Family History Mother Depression Family history of liver disease Family history of arthritis Father Family history of chronic obstructive pulmonary disease Family history of lung cancer Family history of primary malignant neoplasm of liver Social History Social History Smoking packs per day: 0.5 Smoking cigarettes per day: 10.0 Years smoked: 50 Smoking pack-years: 25.00 Smoking status: Former smoker Tobacco type: cigarettes Second hand tobacco smoke exposure: Yes Smoking end date: 02/09/21 Additional smoking assessment comments: SMOKES 2 CIGS PER DAY Alcohol intake: never Substance use: never Substance use type: does not use Spiritual care concerns: No Comments Patient is aware of diagnosis, understands and agrees to treatment plan. Anticipatory guidance given. Patient agrees to follow-up as directed and is aware of reasons to seek care at the emergency department. Portions of this record may have been created with voice recognition software Exam Narrative: GENERAL: This is a well-nourished, well-developed patient, in no apparent distress. HEAD: normocephalic, atraumatic. EYES: PERRL. Sclera clear/white. Vision is grossly intact. EARS: External ears normal NOSE: External nose normal NECK: Neck supple, non-tender without lymphadenopathy, masses or thyromegaly. CARDIOVASCULAR: Regular rate and rhythm without murmurs, gallops, or rubs. RESPIRATORY: Clear to auscultation. Breath sounds equal bilaterally. No wheezes, rales, or rhonchi. SKIN: warm, Dry, in
[2021-11-25] MEDS: TETANUS/DIPHTHERIA TOXOIDS ADSORB 0.5 ML VIAL (*BKC) IM (10:31)
== END 2021-11-25 10:55 | disposition home or self-care (01) ==
PROVIDERS: Emergency Provider Nurse Practitioner Family; PCP Internal Medicine
DX: S62.102A Fracture of unspecified carpal bone, left wrist, initial encounter for closed fracture (principal); I10 Essential (primary) hypertension; E78.2 Mixed hyperlipidemia; E11.9 Type 2 diabetes mellitus without complications; Z87.891 Personal history of nicotine dependence; Z23 Encounter for immunization; W01.0XXA Fall on same level from slipping, tripping and stumbling without subsequent striking against object, initial encounter; Y92.008 Other place in unspecified non-institutional (private) residence as the place of occurrence of the external cause
CPT/HCPCS: 29125; 73110; 90471; 90714; 99214; A4565; G0463

== ENCOUNTER 2022-02-02 15:16 | Outpatient (CLI) | payer MEDICARE, SELFPAY ==
--- NOTE | ~2022-02-02 | DEXA_ITS ---
Bone Density Report Name: KYUNG BAR Age: 71 Sex: Female Ethnicity: White Date of : 1950 Indication: postmenopausal; screening for osteoporosis; parental hip fracture; prior fracture; hysterectomy; Referring Provider: RAS BARRAGAN Study: Bone densitometry was performed. Exam Date: February 02, 2022 Accession number: [id number] Bone Density: Region BMD T-score Z-score Classification AP Spine(L1-L4) 1.001 -0.4 1.8 Normal Femoral Neck (Left) 0.595 -2.3 -0.3 Osteopenia Total Hip (Left) 0.897 -0.4 1.3 Normal Femoral Neck (Right) 0.623 -2.0 -0.1 Osteopenia Total Hip (Right) 0.835 -0.9 0.8 Normal Total Hip Mean 0.866 -0.7 1.1 Normal World Health Organization criteria for BMD impression classify patients as: Normal (T-score at or above -1.0), Osteopenia (T-score between -1.0 and -2.5), or Osteoporosis (T-score at or below -2.5). 10-year Fracture Risk(1): Major Osteoporotic Fracture 29% Hip Fracture 12% Reported Risk Factors: [place] (), Neck BMD=0.595, BMI=43.3, previous fracture, parental fracture (1) FRAX(R) Version 3.08. Fracture probability calculated for an untreated patient. Fracture probability may be lower if the patient has received treatment. Previous Exams: Region Exam Age BMD T-score BMD Change BMD Change Date g/cm2 vs Baseline vs Previous AP Spine (L1-L4) 02/02/2022 71 1.001 -0.4 -0.064 (-6.0%) -0.064 (-6.0%) 12/23/2019 69 1.065 0.2 Total Hip(Left) 02/02/2022 71 0.897 -0.4 0.019 (2.1%)# 0.019 (2.1%)# 12/23/2019 69 0.879 -0.5 Total Hip(Right) 02/02/2022 71 0.835 -0.9 -0.069 (-7.6%) -0.069 (-7.6%) 12/23/2019 69 0.903 -0.3 *Denotes significance at 95% confidence level, LSC for AP Spine = 0.022 g/cm2, LSC for Total Hip = 0.027 g/cm2 # Denotes dissimilar scan types or analysis methods Clinical Information Provided by Patient: Has had a low trauma fracture Parent has had a hip fracture Has used the following medications: Vitamin D Has the following medical conditions: Hysterectomy Patient maximum height was 65 Menopause Age: 34 No regular weight bearing exercise Onset of menses at age 11 Number of children 4 Impression: The patient has low bone mass, based on the Left Femoral Neck T-score. The patient has an estimated ten-year risk of hip fracture of 12% and an estimated ten-year risk of major fracture of 29%, based on the WHO FRAX algorithm. The patient has r
== END 2022-02-02 15:17 | disposition home or self-care (01) ==
PROVIDERS: PCP Internal Medicine; Visit Provider Nurse Practitioner
DX: Z78.0 Asymptomatic menopausal state (principal); M85.852 Other specified disorders of bone density and structure, left thigh; M85.851 Other specified disorders of bone density and structure, right thigh
CPT/HCPCS: 77080

== ENCOUNTER 2022-03-14 11:34 | Outpatient (CLI) | payer MEDICARE, SELFPAY ==
--- NOTE | ~2022-03-14 | XR_ITS ---
EXAMINATION: XR chest 2V 03/14/2022 11:55 INDICATION: Dyspnea. Shortness of breath with exertion. PROCEDURE: 2 view chest COMPARISON: 07/29/2010 FINDINGS: The lungs are clear. The cardiomediastinal silhouette is within normal limits. There are no pleural effusions. There is no pneumothorax suspected. IMPRESSION: 1: NO ACUTE CARDIOPULMONARY DISEASE. Reviewed, dictated and finalized at location B.
== END 2022-03-14 11:35 | disposition home or self-care (01) ==
PROVIDERS: PCP Internal Medicine; Visit Provider Internal Medicine
DX: R06.09 Other forms of dyspnea (principal)
CPT/HCPCS: 71046

== ENCOUNTER 2022-03-23 09:08 | Outpatient (CLI) | payer MEDICARE, SELFPAY ==
--- NOTE | ~2022-03-23 | MM_ITS ---
EXAMINATION: MM screening nancy BI w alek HISTORY: Screening TECHNIQUE: Craniocaudal and mediolateral oblique 3-D tomosynthesis images were obtained and synthetic 2-D images were generated. CAD analysis was submitted and interpreted. COMPARISON: Comparison to multiple prior studies sequentially, with oldest reviewed study dated 09/12. BREAST PARENCHYMAL COMPOSITION: There are scattered areas of fibroglandular density. FINDINGS: There is no evidence of suspicious mass, calcification, or architectural distortion to sugg est malignancy in either breast. There has been no suspicious interval change. IMPRESSION: 1. No mammographic evidence of malignancy. 2. Recommend routine screening mammography in one year. BI-RADS Category 1: Negative Reviewed, dictated and finalized at location A.
== END 2022-03-23 09:09 | disposition home or self-care (01) ==
PROVIDERS: PCP Internal Medicine; Visit Provider Internal Medicine
DX: Z12.31 Encounter for screening mammogram for malignant neoplasm of breast (principal)
CPT/HCPCS: 77063; 77067

== ENCOUNTER 2022-03-31 09:40 | Outpatient (CLI) | payer MEDICARE, SELFPAY ==
--- NOTE | ~2022-03-31 | CT_ITS ---
EXAMINATION: CT abdomen pelvis wo con DATE: 03/31/2022 11:03 INDICATION: Abdominal pain TECHNIQUE: Computed tomography (CT) of the abdomen and pelvis was performed without intravenous contr ast. The dose-length product (DLP) was 1506.75 mGy-cm. Automated exposure control and iterative recon struction technique were employed. COMPARISON: 08/11/2021 FINDINGS: Minimal dependent atelectasis is present in the lung bases. The heart size is normal. There is nodularity of the liver surface. The gallbladder is surgically absent. There is chronic periporta l lymphadenopathy, likely reactive. The spleen, pancreas, and adrenal glands are normal. The kidneys are unremarkable. The appendix is normal. There is no free intraperitoneal gas or evidence of bowel o bstruction. Colonic diverticulosis is present without evidence of diverticulitis. There is severe lum bar spondylosis. Again noted is a bone island of the left sacrum. IMPRESSION: 1. No CT correlate for the patient's symptoms. 2. Cirrhosis. 3. Chronic periportal lymphadenopathy, likely reactive. Reviewed, dictated and finalized at location B. TEACHER
--- NOTE | 2022-03-31 09:46 | EST_ITS ---
Patient Info Name: Antonia Rosales Age: 71 years : 1950 Gender: Female Ht: 65 in Wt: 260 lbs BSA: 2.39 m2 HR: 79 bpm BP: 125 / 56 mmHg Heart Rhythm: Sinus Rhythm Exam Date: 03/31/2022 10:30 AM Exam Location: [facility] Pulmonary Patient Status: Outpatient Admit Date: 03/31/2022 Staff Ordering Physician: Artur Henning DO Shingle Sawyer: Destinee Ken RDCS Attending Provider: Artur Henning DO Exercise Technologist: Elza Harris RDCS Exercise Physician: Orlin Denton DO Exam Type: CA stress echo Study Info Indications R06.00 - Dyspnea, unspecified Treadmill exercise stress echocardiogram is performed. Summary 1. 1. Negative Alex exercise stress test for ischemic ST changes by ECG criteria. However achieved only 84% MPHR for age group which reduces sensitivity of the test. 2. 2. Poor functional capacity, achieving 2 METs of workload. 3. 3. Rapid HR response to exercise. 4. 4. Abnormal HR recovery at 1 minute post exercise. 5. 5. Negative stress echocardiogram for ischemia by wall motion analysis. 6. 6. Informed patient of the above results. Stress Echo Findings Left Ventricle Appropriate increase in LV endocardial thickening with systole. Appropriate augementation of contractility with systole. No wall motion abnormality. Left Ventricle Normal LV systolic function, no wall motion abnormality. Protocol: Alex Stress ECG Details Stage: REST Duration (min): 2 min : 35 sec Speed (mph): 0.0 Grade (%): 0 HR (bpm): 80 SBP (mmHg): 125 DBP (mmHg): 56 METS: --- Stage: REST Duration (min): 23 min : 14 sec Speed (mph): 0.0 Grade (%): 0 HR (bpm): 90 SBP (mmHg): 125 DBP (mmHg): 56 METS: --- Stage: STAGE 1 Duration (min): 1 min : 0 sec Speed (mph): 1.7 Grade (%): 10 HR (bpm): 101 SBP (mmHg): 125 DBP (mmHg): 56 METS: --- Stage: STAGE 1 Duration (min): 2 min : 0 sec Speed (mph): 0.0 Grade (%): 0 HR (bpm): 112 SBP (mmHg): 125 DBP (mmHg): 56 METS: --- Stage: STAGE 1 Duration (min): 3 min : 0 sec Speed (mph): 0.0 Grade (%): 0 HR (bpm): --- SBP (mmHg): 125 DBP (mmHg): 56 METS: --- Stage: STAGE 1 Duration (min): 3 min : 17 sec Speed (mph): 0.0 Grade (%): 0 HR (bpm): 123 SBP (mmHg): 125 DBP (mmHg): 56 METS: --- Stage: RECOVERY Duration (min): 0 min : 42 sec Speed (mph): 0.0 Grade (%): 0 HR (bpm): --- SBP (mmHg): 125 DBP (mmHg): 56 METS: --- Stage: RECOVERY Duration (min): 1 min : 43 sec Speed (mph): 0.0 Grade (%): 0 HR (bpm): 117 SBP (mmHg): 125 DBP (mmHg): 56 METS: --- Stage: RECOVERY Duration (min): 2 min : 42 sec Speed (mph): 0.0 Grade (%): 0 HR (bpm): 111 SBP (mmHg): 167 DBP (mmHg): 63 METS: --- Stage: RECOVERY Duration (min): 3 min : 43 sec Speed (mph): 0.0 Grade (%): 0 HR (bpm): 97 SBP (mmHg): 167 DBP (mmHg): 63 METS: ---
== END 2022-03-31 09:41 | disposition home or self-care (01) ==
PROVIDERS: PCP Internal Medicine; Visit Provider Internal Medicine
DX: E11.29 Type 2 diabetes mellitus with other diabetic kidney complication (principal); R06.09 Other forms of dyspnea; G89.29 Other chronic pain; R10.9 Unspecified abdominal pain; K74.69 Other cirrhosis of liver
CPT/HCPCS: 74176; 93351

== ENCOUNTER 2022-04-27 10:39 | Outpatient (CLI) | payer MEDICARE, SELFPAY ==
--- NOTE | ~2022-04-27 | MR_ITS ---
EXAMINATION: MR lumbar spine wo con DATE: 04/27/2022 11:14 INDICATION: Weakness of bilateral lower extremities. TECHNIQUE: Magnetic resonance imaging (MRI) of the lumbar spine was performed without intravenous con trast. Sequences included sagittal T2-weighted FSE, sagittal T2-weighted FS FSE, sagittal T1-weighted FSE, and axial T2-weighted FSE. COMPARISON: None FINDINGS: There is 8 degrees levocurvature of thoracolumbar spine. Vertebral body heights are normal. There are hemangiomas in T10, T11, and L1 vertebral bodies. There is mildly decreased disc height at L1-L2 and L2-L3. The distal spinal cord signal intensity is normal. The conus medullaris is at T12-L 1. The following disc levels are specifically discussed: L1-L2: The disc is bulging. There is moderate bilateral facet joint osteoarthritis. There is mild terra ateral neural foraminal stenosis. There is mild central canal stenosis. L2-L3: The disc is bulging. There is severe right and mild left facet joint osteoarthritis. There is mild bilateral neural foraminal stenosis. There is mild central canal stenosis. L3-L4: The disc is mildly bulging. There is moderate bilateral facet joint osteoarthritis. There is m ild bilateral neural foraminal stenosis. There is no central canal stenosis. L4-L5: The disc is mildly bulging. There is moderate right and severe left facet joint osteoarthritis . There is mild bilateral neural foraminal stenosis. There is no central canal stenosis. L5-S1: The disc is bulging and has an annular fissure. There is mild right and severe left facet join t osteoarthritis. There is mild bilateral neural foraminal stenosis. There is no central canal stenos is. IMPRESSION: 1. Mild lumbar spondylosis. Reviewed, dictated and finalized at location E. BING MACHINE OPERATOR IMPRESSION: 1. Mild lumbar spondylosis.
== END 2022-04-27 10:40 | disposition home or self-care (01) ==
LOC: ANHIMG 10:43
PROVIDERS: PCP Internal Medicine; Visit Provider Internal Medicine
DX: R29.898 Other symptoms and signs involving the musculoskeletal system (principal); M47.816 Spondylosis without myelopathy or radiculopathy, lumbar region
CPT/HCPCS: 72148

== ENCOUNTER 2022-07-28 11:03 | Outpatient (CLI) | payer MEDICARE, SELFPAY ==
--- NOTE | ~2022-07-28 | XR_ITS ---
XR knee RT 3V DATE: 07/28/2022 11:29 INDICATION: Right knee pain for 6 months. No known injury. TECHNIQUE: AP, lateral, sunrise views COMPARISON: 10/28/2010 right knee FINDINGS: Mild tricompartment osteoarthritis. There is chondrocalcinosis of the medial and lateral compartments. No fracture or dislocation or joint effusion. No periosteal reaction or bone destruction. IMPRESSION: Mild tricompartment osteoarthritis Chondrocalcinosis Reviewed, dictated and finalized at location L. PACKER
--- NOTE | ~2022-07-28 | US_ITS ---
EXAMINATION: US thyroid DATE: 07/28/2022 11:54 INDICATION: Nontoxic single thyroid nodule. TECHNIQUE: Multiple ultrasound images of the thyroid were obtained. COMPARISON: Ultrasound 08/30/2021, 04/09/18, 01/17/17 FINDINGS: The right thyroid lobe measures 4.4 x 1.6 x 2.4 cm. The left thyroid lobe measures 5.4 x 2.0 x 2.2 c m. In the right thyroid lobe, there is a 1.3 cm solid, hypoechoic, wider than tall nodule with ajit h margin without echogenic foci (TI-RADS TR4), increased from 1.1 cm on 08/30/21. In the left thyroid lobe, there is a 2.0 cm solid, hypoechoic, wider than tall nodule with ill-defined margin without ech ogenic foci (TR4), stable from 04/09/18 when biopsy was benign. There are multiple smaller nodules in the thyroid. IMPRESSION: 1. Multinodular goiter. Thyroid ultrasound is recommended in one year. Reviewed, dictated and finalized at location A. MACHINE OPERATOR
== END 2022-07-28 11:04 | disposition home or self-care (01) ==
PROVIDERS: PCP Internal Medicine; Visit Provider Internal Medicine
DX: E04.2 Nontoxic multinodular goiter (principal); M17.11 Unilateral primary osteoarthritis, right knee
CPT/HCPCS: 73562; 76536

== ENCOUNTER 2023-06-20 14:04 | Outpatient (CLI) | payer MEDICARE, SELFPAY ==
[2023-06-20 14:40] LABS: Basophils Percent Auto 0.5 % (0.2-1.2); Eosinophils Absolute Auto 0.2 K/mm3 (0-0.3); Eosinophils Percent Auto 2.8 % (0-4.4); Hematocrit 34.3 % (37.0-47.0); Hemoglobin 9.9 g/dL (12.0-15.0); Immature Granulocyte Absolute 0.02 K/mm3 (0.00-0.031); Immature Granulocyte Percent A 0.3 % (0-0.5); Lymphocytes Absolute Auto 1.59 K/mm3 (0.9-3.2); Lymphocytes Percent Auto 24.7 % (18.3-44.2); Mean Corpuscular HGB Conc 28.9 g/dl (32-36); Mean Corpuscular Hemoglobin 26.5 pg (26-34); Monocytes Absolute Auto 0.3 K/mm3 (0.1-0.6); Monocytes Percent Auto 4.8 % (2.6-8.5); Neutrophils Absolute Auto 4.3 K/mm3 (1.3-6.7); Neutrophils Percent Auto 66.9 % (45.5-73.1); Platelet Count Result 181 k/mm3 (150-375); Red Blood Count 3.73 M/mm3 (4.2-5.4); Red Cell Distribution Width 15.7 % (11.5-14.5); White Blood Count 6.5 K/mm3 (4.5-10.0)
[2023-06-20 15:05] LABS: Iron 35 ug/dL (37-170)
[2023-06-20 15:21] LABS: Percent Iron Saturation 8 % (20-50)
[2023-06-20 16:43] LABS: Platelet Estimate Adequate (Adequate); Schistocytes None Seen (NORMAL)
[2023-06-20 16:44] LABS: Anisocytosis 2+ (NORMAL); Hypochromasia 1+ (NORMAL)
== END 2023-06-20 14:05 | disposition home or self-care (01) ==
LOC: ANHLAB 14:08
PROVIDERS: PCP Nurse Practitioner Family; Visit Provider Nurse Practitioner Family
DX: E11.9 Type 2 diabetes mellitus without complications (principal); D64.9 Anemia, unspecified
CPT/HCPCS: 36415; 83540; 83550; 85025

== ENCOUNTER 2023-07-12 12:18 | Outpatient (CLI) | payer MEDICARE, SELFPAY ==
[2023-07-12 12:44] LABS: Basophils Percent Auto 0.4 % (0.2-1.2); Eosinophils Absolute Auto 0.2 K/mm3 (0-0.3); Eosinophils Percent Auto 2.2 % (0-4.4); Hematocrit 30.9 % (37.0-47.0); Hemoglobin 9.2 g/dL (12.0-15.0); Immature Granulocyte Absolute 0.02 K/mm3 (0.00-0.031); Immature Granulocyte Percent A 0.3 % (0-0.5); Immature Reticulocyte Fraction 18.4 % (3.0-15.9); Lymphocytes Absolute Auto 1.43 K/mm3 (0.9-3.2); Lymphocytes Percent Auto 20.7 % (18.3-44.2); Mean Corpuscular HGB Conc 29.8 g/dl (32-36); Mean Corpuscular Hemoglobin 27.1 pg (26-34); Mean Corpuscular Volume 90.9 fl (80-100); Mean Platelet Volume 11.3 fl (7.4-10.4); Monocytes Absolute Auto 0.4 K/mm3 (0.1-0.6); Monocytes Percent Auto 5.2 % (2.6-8.5); Neutrophils Absolute Auto 4.9 K/mm3 (1.3-6.7); Neutrophils Percent Auto 71.2 % (45.5-73.1); Platelet Count Result 198 k/mm3 (150-375); Red Cell Distribution Width 16.1 % (11.5-14.5); Reticulocyte Hemoglobin Conten 27.8 pg (28.2-35.7); Reticulocyte Percent 1.78 % (0.7-4.3); Reticulocytes Absolute 0.06 M/mm3 (0.02-0.1); White Blood Count 6.9 K/mm3 (4.5-10.0)
[2023-07-12 12:53] LABS: Anisocytosis 1+ (NORMAL); Hypochromasia 1+ (NORMAL); Microcytosis 1+ (NORMAL); Platelet Estimate Adequate (Adequate); Schistocytes None Seen (NORMAL)
[2023-07-12 16:32] LABS: Alanine Aminotransferase 16 U/L (6-35); Albumin Level 4.2 g/dL (3.5-5.1); Alkaline Phosphatase 127 U/L (38-126); Anion Gap 12 mmol/L (8-16); Aspartate Amino Transferase 29 U/L (14-36); Bilirubin,Total 0.4 mg/dL (0.2-1.3); Blood Urea Nitrogen 21 mg/dL (7-17); Calcium 9.5 mg/dL (8.4-10.2); Carbon Dioxide 21 mmol/L (22-30); Chloride 105 mmol/L (98-107); Estimated Glomerular Filt Rate 54; Glucose 115 mg/dL (65-110); Lactate Dehydrogenase 211 U/L (120-246); Potassium 4.4 mmol/L (3.4-5.0); Sodium 138 mmol/L (137-145)
[2023-07-12 16:33] LABS: Iron 56 ug/dL (37-170)
[2023-07-12 16:46] LABS: Percent Iron Saturation 12 % (20-50)
[2023-07-12 17:47] LABS: Folic Acid 4.2 ng/mL (2.76->20); Vitamin B12 > 1000.0 pg/mL (239-931)
[2023-07-15 05:11] LABS: Methylmalonic Acid 147 nmol/L (87-318)
[2023-07-15 16:33] LABS: Soluble Transferrin Receptor 3.09 mg/L (0.76-1.76)
[2023-07-17 09:33] LABS: Haptoglobin 239 mg/dL (43-212)
== END 2023-07-12 12:19 | disposition home or self-care (01) ==
LOC: ANHLAB 12:20
PROVIDERS: Nurse Practitioner Family; PCP Nurse Practitioner Family; Visit Provider Internal Medicine Hematology & Oncology
DX: D50.8 Other iron deficiency anemias (principal)
CPT/HCPCS: 36415; 80053; 82607; 82728; 82746; 83010; 83540; 83550; 83615; 83921; 84238; 85025; 85046; 86880

== ENCOUNTER 2023-11-21 00:49 | Day surgery (SDC) | payer MEDICARE, SELFPAY ==
[2023-11-14 14:22] VITALS: BMI 37.5
[2023-11-21 08:27] VITALS: BP 115/52; PULSE 96; RESP 18; TEMP 36.1; O2SAT 100
[2023-11-21] MEDS: LACTATED RINGERS 1,000 ML 150 ML IV CONT (08:43)
[2023-11-21 08:44] LABS: Glucose Point of Care 143 mg/dl (65-105)
--- NOTE | 2023-11-21 09:17 | PM.HPGS ---
History of Present Illness History of Present Illness Consent: Risks, benefits, and alternatives have been discussed and questions answered. Patient agrees to proceed with procedure. Chief complaint: GERD, ARNIE, Neoplasm Screening Narrative: Antonia Rosales is a 73 year old female here for egd and colonoscopy, last time about 5 years ago and had polyp, gerd on famotidine, denies overt gib but she has daily loose stools Review of Systems Review of Systems: All systems reviewed & are unremarkable except as noted in HPI and below PMFSH Past Medical History Medical History Anxiety and depression Benign essential hypertension Cirrhosis of liver without ascites CKD stage G3a/A1, GFR 45-59 and albumin creatinine ratio <30 mg/g COVID-19 Hx of adenomatous colonic polyps Hypothyroidism Lumbar degenerative disc disease Mixed hyperlipidemia Osteoarthritis Screening for breast cancer Splenic artery aneurysm Type 2 diabetes mellitus without complication, without long-term current use of insulin Family History Family History Mother Depression Family history of liver disease Family history of arthritis Father Family history of chronic obstructive pulmonary disease Family history of lung cancer Family history of primary malignant neoplasm of liver Social History Social History Smoking packs per day: 1 Smoking cigarettes per day: 20.0 Years smoked: 50 Smoking pack-years: 50.00 Smoking status: Current every day smoker Tobacco type: e-cigarettes/vaping Second hand tobacco smoke exposure: Yes Smoking end date: 02/09/21 Additional smoking assessment comments: SMOKES 2 CIGS PER DAY Alcohol intake: never Substance use: never Substance use type: does not use Lack of Transportation: No Lack of Food: Sometimes True Current Housing: I Have Housing Concerned About Future Housing: No Difficulty Paying Gas/Electric Bills: No Difficulty Paying for Meds: No Currently Unemployed: No Education: Trade/Vocational Certificate Difficulty w/ Childcare or Family Care: No Living arrangements: with family Occupation/Education: occupation 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 Gender identity (if verbalized by the patient): Female Sexual Orientation (if Verbalized by the Patient): Straight or Heterosexual Spiritual care concerns: No Agree to blood products: Yes Meds Home Medications and Allergies Home Medications Medication Instructions Recorded Confirmed Type mecobalamin (vitamin B12) 1,000 1,000 mcg PO DAILY 03/20/20 11/14/23 History mcg chewable tablet oxybutynin chloride 10 mg 10 mg PO DAILY 10/27/20 11/14/23 History tablet,extended release 24 hr mirabegron 25 mg tablet,extended 1 tablet PO DAILY 11/25/21 11/14/23 History release 24 hr (Myrbetriq) atorvastatin 40 mg tablet 20 mg PO DAILY #90 tabs 08/15/22 11/14/23 Rx cholecalciferol (vitamin D3) 25 25 mcg PO DAILY 11/01/22 11/14/23 History mcg (1,000 unit) tablet venlafaxine 150 mg See Rx Instructions .Route 03/06/23 11/14/23 Rx capsule,extended release 24 hr .COMPLEX #90 caps ferrous sulfate 325 mg (65 mg 325 mg PO BID #180 tabs 06/20/23 11/14/23 Rx iron) tablet tirzepatide 10 mg/0.5 mL 10 mg (0.5 mL) subcut WEEKLY #6 mL 07/25/23 11/14/23 Rx subcutaneous pen injector levothyroxine 25 mcg tablet 25 mcg PO DAILY #100 tabs 08/25/23 11/14/23 Rx valsartan 160 mg tablet See Rx Instructions .Route 10/24/23 11/14/23 Rx .COMPLEX #100 tabs blood-glucose meter,continuous 11/08/23 11/13/23 History (FreeStyle [place] [address] [place]) famotidine 40 mg tablet See Rx Instructions .Route 11/08/23 11/14/23 Rx .COMPLEX #100 tabs spironolactone 25 mg tablet 25 mg PO DAILY #100 tabs 11/08/23 11/14/23 Rx amlodipine 10 mg tablet See Rx Instructions .Ro
--- NOTE | 2023-11-21 09:21 | WPDANESEPPF ---
Anes - Initial Pre Proc Eval Procedure: Operation Date: 11/21/23 09:30 Proposed Procedures p Esophagogastroduodenoscopy&Screen Colon - Ha Phelps MD Date/Time: 11/21/23 09:21 Surgeon: Ha Phelps MD Pre Op Diagnosis: GERD, ARNIE, Neoplasm Screening Patient Data Age: 73 Gender: F Height: 1.68 m Weight: 105.2 kg Last Vital Signs Temp 97 F L 11/21/23 08:27 Pulse 96 11/21/23 08:27 Resp 18 11/21/23 08:27 BP 115/52 L 11/21/23 08:27 Pulse Ox 100 11/21/23 08:27 O2 Del Method Room Air 11/21/23 08:27 Allergies Allergy/AdvReac Type Severity Reaction Status Date / Time adhesive tape Allergy Unknown Hives Verified 11/21/23 08:18 Home Medications Medication Instructions Recorded Confirmed Type mecobalamin (vitamin B12) 1,000 1,000 mcg PO DAILY 03/20/20 11/14/23 History mcg chewable tablet oxybutynin chloride 10 mg 10 mg PO DAILY 10/27/20 11/14/23 History tablet,extended release 24 hr mirabegron 25 mg tablet,extended 1 tablet PO DAILY 11/25/21 11/14/23 History release 24 hr (Myrbetriq) atorvastatin 40 mg tablet 20 mg PO DAILY #90 tabs 08/15/22 11/14/23 Rx cholecalciferol (vitamin D3) 25 25 mcg PO DAILY 11/01/22 11/14/23 History mcg (1,000 unit) tablet venlafaxine 150 mg See Rx Instructions .Route 03/06/23 11/14/23 Rx capsule,extended release 24 hr .COMPLEX #90 caps ferrous sulfate 325 mg (65 mg 325 mg PO BID #180 tabs 06/20/23 11/14/23 Rx iron) tablet tirzepatide 10 mg/0.5 mL 10 mg (0.5 mL) subcut WEEKLY #6 mL 07/25/23 11/14/23 Rx subcutaneous pen injector levothyroxine 25 mcg tablet 25 mcg PO DAILY #100 tabs 08/25/23 11/14/23 Rx valsartan 160 mg tablet See Rx Instructions .Route 10/24/23 11/14/23 Rx .COMPLEX #100 tabs blood-glucose meter,continuous 11/08/23 11/13/23 History (FreeStyle Benedicto 3 [place]) famotidine 40 mg tablet See Rx Instructions .Route 11/08/23 11/14/23 Rx .COMPLEX #100 tabs spironolactone 25 mg tablet 25 mg PO DAILY #100 tabs 11/08/23 11/14/23 Rx amlodipine 10 mg tablet See Rx Instructions .Route 11/20/23 Rx .COMPLEX #100 tabs metformin 1,000 mg tablet See Rx Instructions .Route 11/20/23 Rx .COMPLEX #200 tabs nadolol 20 mg tablet See Rx Instructions .Route 11/20/23 Rx .COMPLEX #100 tabs Laboratory Tests 11/21/23 08:41 POC Capillary Glucose 143 H mg/dl (65-105) Patient hx anesthesia problems: none Family hx anesthesia problems: none Results Review: All pre-operative results and documents have been reviewed as part of the pre-operative evaluation. [facility] Past Medical History Medical History Anxiety and depression Benign essential hypertension Cirrhosis of liver without ascites CKD stage G3a/A1, GFR 45-59 and albumin creatinine ratio <30 mg/g COVID-19 Hx of adenomatous colonic polyps Hypothyroidism Lumbar degenerative disc disease Mixed hyperlipidemia Osteoarthritis Screening for breast cancer Splenic artery aneurysm Type 2 diabetes mellitus without complication, without long-term current use of insulin Family History Family History Mother Depression Family history of liver disease Family history of arthritis Father Family history of chronic obstructive pulmonary disease Family history of lung cancer Family history of primary malignant neoplasm of liver Social History Social History Smoking packs per day: 1 Smoking cigarettes per day: 20.0 Years smoked: 50 Smoking pack-years: 50.00 Smoking status: Current every day smoker Tobacco type: e-cigarettes/vaping Second hand tobacco smoke exposure: Yes Smoking end date: 02/09/21 Additional smoking assessment comments: SMOKES 2 CIGS PER DAY Alcohol intake: never Substance use: never Substance use type: does not use Lack of Transpor
--- NOTE | 2023-11-21 09:30 | SUR.OPER ---
EGD start 922 end 925. Colonoscopy start 930.
[2023-11-21 09:46] VITALS: BP 136/72; PULSE 92; RESP 22; O2SAT 99
[2023-11-21 09:56] VITALS: BP 134/64; PULSE 90; RESP 24; O2SAT 97
[2023-11-21 10:06] VITALS: BP 149/78; PULSE 86; RESP 20; O2SAT 100
== END 2023-11-21 10:32 | disposition home or self-care (01) ==
PROVIDERS: PCP Nurse Practitioner Family; Visit Provider Internal Medicine Gastroenterology
PROC: 0DJ08ZZ Inspection of Upper Intestinal Tract, Via Natural or Artificial Opening Endoscopic (ICD-10-PCS; CPT 43235; principal; 2023-11-21 09:30)
DX: Z12.11 Encounter for screening for malignant neoplasm of colon (principal); D12.3 Benign neoplasm of transverse colon; D12.0 Benign neoplasm of cecum; K52.9 Noninfective gastroenteritis and colitis, unspecified; K64.8 Other hemorrhoids; K57.30 Diverticulosis of large intestine without perforation or abscess without bleeding; K21.9 Gastro-esophageal reflux disease without esophagitis; K29.70 Gastritis, unspecified, without bleeding; D50.9 Iron deficiency anemia, unspecified; K74.60 Unspecified cirrhosis of liver; I12.9 Hypertensive chronic kidney disease with stage 1 through stage 4 chronic kidney disease, or unspecified chronic kidney disease; N18.31 Chronic kidney disease, stage 3a; E03.9 Hypothyroidism, unspecified; E78.2 Mixed hyperlipidemia; E11.22 Type 2 diabetes mellitus with diabetic chronic kidney disease; F41.8 Other specified anxiety disorders; F17.290 Nicotine dependence, other tobacco product, uncomplicated
CPT/HCPCS: 43239; 45380; 45385; 82948; 88305; J2704; J7120

== ENCOUNTER 2023-11-30 11:11 | Outpatient (CLI) | payer MEDICARE, SELFPAY ==
--- NOTE | ~2023-11-30 | US_ITS ---
Limited Abdominal Sonogram: Real-time sonographic imaging of the right upper quadrant was performed. Clinical History: Diabetes type 2 Findings: The liver appears echogenic, with no evidence of mass lesion or bile duct dilatation. Main portal vein demonstrates normal direction of flow. The gallbladder is absent, compatible prior elmer cystectomy. The common bile duct measures 6 mm. The visualized pancreas, aorta, and IVC are unremark able. Right kidney measures 8.8 cm in length, without hydronephrosis or definite renal stone. Impression: Diffuse fatty infiltration of liver. Status post cholecystectomy. Reviewed, dictated and finalized at location . Impression: Diffuse fatty infiltration of liver. Status post cholecystectomy.
== END 2023-11-30 11:12 ==
LOC: MICIMG 11:13
PROVIDERS: PCP Nurse Practitioner Family; Visit Provider Internal Medicine Gastroenterology
DX: E11.9 Type 2 diabetes mellitus without complications (principal); K74.60 Unspecified cirrhosis of liver; Z90.49 Acquired absence of other specified parts of digestive tract
CPT/HCPCS: 76705

== ENCOUNTER 2023-12-08 08:18 | Outpatient (CLI) | payer MEDICARE, SELFPAY ==
[2023-12-08 08:47] LABS: Basophils Percent Auto 0.4 % (0.2-1.2); Eosinophils Absolute Auto 0.1 K/mm3 (0-0.3); Eosinophils Percent Auto 1.3 % (0-4.4); Hematocrit 31.6 % (37.0-47.0); Hemoglobin 9.5 g/dL (12.0-15.0); Immature Granulocyte Absolute 0.02 K/mm3 (0.00-0.031); Immature Granulocyte Percent A 0.3 % (0-0.5); Lymphocytes Absolute Auto 1.39 K/mm3 (0.9-3.2); Mean Corpuscular HGB Conc 30.1 g/dl (32-36); Mean Corpuscular Hemoglobin 27.9 pg (26-34); Mean Corpuscular Volume 92.9 fl (80-100); Mean Platelet Volume 11.5 fl (7.4-10.4); Monocytes Absolute Auto 0.3 K/mm3 (0.1-0.6); Monocytes Percent Auto 4.9 % (2.6-8.5); Neutrophils Absolute Auto 5.1 K/mm3 (1.3-6.7); Neutrophils Percent Auto 73.1 % (45.5-73.1); Platelet Count Result 182 k/mm3 (150-375); Red Cell Distribution Width 13.8 % (11.5-14.5); White Blood Count 6.9 K/mm3 (4.5-10.0)
[2023-12-08 13:29] LABS: Iron 26 ug/dL (37-170)
[2023-12-08 13:32] LABS: Alanine Aminotransferase 17 U/L (6-35); Albumin Level 4.1 g/dL (3.5-5.1); Alkaline Phosphatase 116 U/L (38-126); Anion Gap 16 mmol/L (4-12); Aspartate Amino Transferase 27 U/L (14-36); Bilirubin,Total 0.3 mg/dL (0.2-1.3); Blood Urea Nitrogen 24 mg/dL (7-17); Calcium 9.6 mg/dL (8.4-10.2); Carbon Dioxide 14 mmol/L (22-30); Chloride 108 mmol/L (98-107); Estimated Glomerular Filt Rate 37; Glucose 166 mg/dL (65-110); Potassium 4.9 mmol/L (3.4-5.0); Sodium 138 mmol/L (137-145)
[2023-12-08 13:35] LABS: Hemoglobin A1C 6.3 % (<5.7)
[2023-12-08 13:39] LABS: Percent Iron Saturation 7 % (20-50)
[2023-12-08 14:07] LABS: Ferritin 8.61 ng/mL (11.1-264)
[2023-12-08 14:36] LABS: Folic Acid 4.6 ng/mL (2.76->20)
== END 2023-12-08 08:19 | disposition home or self-care (01) ==
LOC: ANHLAB 08:20
PROVIDERS: Nurse Practitioner Family; PCP Nurse Practitioner Family; Visit Provider Internal Medicine Hematology & Oncology
DX: E11.22 Type 2 diabetes mellitus with diabetic chronic kidney disease (principal); E03.9 Hypothyroidism, unspecified; D50.9 Iron deficiency anemia, unspecified; I12.9 Hypertensive chronic kidney disease with stage 1 through stage 4 chronic kidney disease, or unspecified chronic kidney disease; N18.31 Chronic kidney disease, stage 3a; K21.9 Gastro-esophageal reflux disease without esophagitis
CPT/HCPCS: 36415; 80053; 82607; 82728; 82746; 83036; 83540; 83550; 84443; 85025

== ENCOUNTER 2024-02-26 15:39 | Observation (INO) | payer MEDICARE, SELFPAY ==
--- NOTE | ~2024-02-26 | US_ITS ---
EXAMINATION: US renal BI DATE: 02/27/2024 15:20 INDICATION: Acute kidney injury. TECHNIQUE: Multiple ultrasound grayscale images of the kidneys were obtained. COMPARISON: CT abdomen and pelvis 03/31/2022 FINDINGS: The right kidney measures 9.7 x 4.4 x 5.2 cm. The left kidney measures 10.8 x 4.5 x 4.0 cm. The kidne ys demonstrate normal parenchymal echogenicity. There is a 1.3 cm cyst in right kidney. There is no h ydronephrosis. The bladder is normal. IMPRESSION: 1. Normal kidney sizes. No hydronephrosis. Reviewed, dictated and finalized at location A.
[2024-02-26 16:37] VITALS: BP 125/63; PULSE 86; RESP 18; TEMP 36.3; O2SAT 97
--- NOTE | 2024-02-26 17:42 | ECG_ITS ---
Test Date: 2024-02-26 17:48:32 Measurements Intervals [place] Rate: 76 P: 38 IL: 148 QRS: 42 QRSD: 92 T: 54 QT: 348 QTc: 392 Interpretive Statements SINUS RHYTHM WITH MARKED SINUS ARRHYTHMIA OTHERWISE UNREMARKABLE ECG No previous ECG available for comparison Electronically Signed On 02-27-2024 07:24:35 CDT by Isrrael Gorman M.D.
--- NOTE | 2024-02-26 17:43 | ED.RECABL ---
HPI - Recheck/Abnormal Lab/Rx General Chief Complaint: Recheck/Abnormal Lab/Rx <SHADE Doran Last Filed: 02/26/24 17:48> Stated Complaint: elevated K+ <SHADE Doran Last Filed: 02/26/24 17:48> Time Seen by Provider: 02/26/24 17:43 <SHADE Doran Last Filed: 02/26/24 17:48> Focused HPI: Patient is a 73 y/o female, with PMH of ARNIE, who presents to the ED with c/o abnormal labs. Patient had blood work drawn today at the infusion center and received a call that her K+ was elevated to 6.0. She was then sent here for further evaluation. Patient reports she has blood work done every 2 weeks and has never had issues with her potassium. She is on spironolactone. Patient states she feels somewhat shaky and lightheaded today, currently c/o MCRAE. C/o intermittent muscle pains in her L arm and L leg. States this has been ongoing for months. Denies CP, SOB, N/V. GENERAL: Elderly, obese with BMI of 38.5, and in no acute distress. HEAD: Normocephalic, atraumatic. CHEST: Clear to auscultation. ?No respiratory distress. HEART: Regular rate and rhythm.? NEURO: ?Alert and oriented x3. Patient screened in triage and initial orders placed.? ?Additional care and disposition to be based upon?diagnostic testing and treatment. <SHADE Doran Last Filed: 02/26/24 17:48> Source: patient <SHADE Doran Last Filed: 02/26/24 17:48> Mode of arrival: ambulatory <SHADE Doran Last Filed: 02/26/24 17:48> Limitations: no limitations <SHADE Doran Last Filed: 02/26/24 17:48> History of Present Illness HPI narrative: patient is a 53-year-old female presents emergency department chief complaint of hyperkalemia patient reports he has prior history of iron deficiency anemia and reports that she had blood work drawn today that showed that her potassium was elevated the patient is currently on spironolactone reports she does feels little not her usual self patient denies chest pain denies palpitations. <Zafar Harrington MD - Last Filed: 02/26/24 22:05> Related Data Home Medications: Home Medications Medication Instructions Recorded Confirmed mecobalamin (vitamin B12) 1,000 1,000 mcg PO DAILY 03/20/20 02/19/24 mcg chewable tablet oxybutynin chloride 10 mg 10 mg PO DAILY 10/27/20 02/19/24 tablet,extended release 24 hr mirabegron 25 mg tablet,extended 1 tablet PO DAILY 11/25/21 02/19/24 release 24 hr (Myrbetriq) cholecalciferol (vitamin D3) 25 25 mcg PO DAILY 11/01/22 02/19/24 mcg (1,000 unit) tablet blood-glucose meter,continuous 11/08/23 02/19/24 (FreeStyle Benedicto 3 [place]) <Sandra Ibarra PA-C - Last Filed: 02/26/24 17:48> Allergies/Adverse Reactions: Allergies Allergy/AdvReac Type Severity Reaction Status Date / Time adhesive tape Allergy Unknown Hives Verified 02/26/24 16:40 <Sandra Ibarra PA-C - Last Filed: 02/26/24 17:48> Review of Systems Review of Systems: A 10 system review of systems was completed on the patient and is negative except for what is stated in the HPI. Nursing and ancillary documentation was reviewed. <Zafar Harrington MD - Last Filed: 02/26/24 22:05> [facility] Past Medical History Medical History: Medical History Anxiety and depression Benign essential hypertension Cirrhosis of liver without ascites CKD stage G3a/A1, GFR 45-59 and albumin creatinine ratio <30 mg/g COVID-19 Hx of adenomatous colonic polyps Hypothyroidism Lumbar degenerative disc disease Mixed hyperlipidemia Osteoarthritis Screening for breast cancer Splenic artery aneurysm Type 2 diabetes mellitus without complication, without long-term current use of insulin <Sandra Ibarra PA-C - Last Filed: 02/26/24 17:48> Family History Family History: Family History (Reviewed
[2024-02-26 18:10] LABS: Basophils Percent Auto 0.4 % (0.2-1.2); Eosinophils Absolute Auto 0.1 K/mm3 (0-0.3); Eosinophils Percent Auto 1.4 % (0-4.4); Hematocrit 34.1 % (37.0-47.0); Hemoglobin 10.4 g/dL (12.0-15.0); Immature Granulocyte Absolute 0.03 K/mm3 (0.00-0.031); Immature Granulocyte Percent A 0.4 % (0-0.5); Lymphocytes Absolute Auto 1.78 K/mm3 (0.9-3.2); Lymphocytes Percent Auto 22.8 % (18.3-44.2); Mean Corpuscular HGB Conc 30.5 g/dl (32-36); Mean Corpuscular Hemoglobin 29.8 pg (26-34); Mean Corpuscular Volume 97.7 fl (80-100); Mean Platelet Volume 11.7 fl (7.4-10.4); Monocytes Absolute Auto 0.5 K/mm3 (0.1-0.6); Monocytes Percent Auto 6.6 % (2.6-8.5); Neutrophils Absolute Auto 5.4 K/mm3 (1.3-6.7); Neutrophils Percent Auto 68.4 % (45.5-73.1); Platelet Count Result 208 k/mm3 (150-375); Red Blood Count 3.49 M/mm3 (4.2-5.4); Red Cell Distribution Width 17.6 % (11.5-14.5); White Blood Count 7.8 K/mm3 (4.5-10.0)
[2024-02-26 18:42] LABS: Alanine Aminotransferase 25 U/L (6-35); Albumin Level 4.4 g/dL (3.5-5.1); Alkaline Phosphatase 141 U/L (38-126); Anion Gap 13 mmol/L (4-12); Aspartate Amino Transferase 42 U/L (14-36); Bilirubin,Total 0.5 mg/dL (0.2-1.3); Blood Urea Nitrogen 42 mg/dL (7-17); Calcium 9.9 mg/dL (8.4-10.2); Carbon Dioxide 17 mmol/L (22-30); Chloride 108 mmol/L (98-107); Estimated CRCL calculation 28 ml/min; Estimated Glomerular Filt Rate 26; Glucose 108 mg/dL (65-110); Magnesium 1.3 mg/dL (1.6-2.3); Sodium 138 mmol/L (137-145)
[2024-02-26 19:01] VITALS: BP 136/61; PULSE 86; RESP 22; TEMP 36.3; O2SAT 100
[2024-02-26] MEDS: DEXTROSE 50% 25 GM/50 ML SYRINGE IV PUSH ×3 (19:36→22:15)
[2024-02-26] MEDS: INSULIN HUMAN REGULAR (*BKC) 100 UNITS/ML 10 UNITS IV PUSH ×2 (19:37→21:00)
[2024-02-26] MEDS: CALCIUM GLUCONATE 1,000 MG/10 ML VIAL 1000 MG IV PUSH (19:37)
[2024-02-26] MEDS: SODIUM BICARBONATE 8.4% 50 MEQ/50 ML SYRINGE IV PUSH (19:37)
[2024-02-26] MEDS: SODIUM CHLORIDE 0.9% IV 1,000 ML 999 ML IV CONT ×2 (19:37→21:00)
[2024-02-26] MEDS: SODIUM ZIRCONIUM CYCLOSILICATE 10 GM POWD.PACK PO (19:37)
[2024-02-26 19:49] LABS: Glucose Point of Care 116 mg/dl (65-105)
[2024-02-26 20:38] LABS: Glucose Point of Care 132 mg/dl (65-105)
[2024-02-26 20:53] LABS: Potassium 7.2 mmol/L (3.4-5.0)
[2024-02-26] MEDS: FUROSEMIDE INJ 40 MG/4 ML VIAL 20 MG IV PUSH (21:00)
[2024-02-26] MEDS: ALBUTEROL SULFATE NEB 2.5 MG/3 ML INH 10 MG INHALATION (21:03)
[2024-02-26 21:04] VITALS: BP 103/44; PULSE 88; RESP 16; TEMP 36.8; O2SAT 99
[2024-02-26 21:40] LABS: Glucose Point of Care 56 mg/dl (65-105)
--- NOTE | 2024-02-26 21:52 | PM.IMHP ---
H&P: HPI History of Present Illness Date/Time: 02/26/24 21:52 Chief Complaint: elevated potassium Narrative: this is a 73-year-old female with past medical history significant for hypertension, type 2 diabetes mellitus, chronic kidney disease, generalized anxiety disorder, depression, hepatic cirrhosis. Patient presents to the emergency room after lab work showed an elevated potassium. Patient denies any chest pain leg swelling nausea vomiting diarrhea abdominal pain fevers rigors or chills. Has been her usual state of health up until this point. Initial potassium in the emergency room was 6 a repeat potassium was 7 patient received hyperkalemia protocol has been placed in observation for further evaluation management and Review of Systems Review of Systems: abnormal potassium level in lab work extremely elevated PMFSH Past Medical History Medical History Anxiety and depression Benign essential hypertension Cirrhosis of liver without ascites CKD stage G3a/A1, GFR 45-59 and albumin creatinine ratio <30 mg/g COVID-19 Hx of adenomatous colonic polyps Hypothyroidism Lumbar degenerative disc disease Mixed hyperlipidemia Osteoarthritis Screening for breast cancer Splenic artery aneurysm Type 2 diabetes mellitus without complication, without long-term current use of insulin Family History Family History Mother Depression Family history of liver disease Family history of arthritis Father Family history of chronic obstructive pulmonary disease Family history of lung cancer Family history of primary malignant neoplasm of liver Social History Social History Smoking packs per day: 1 Smoking cigarettes per day: 20.0 Years smoked: 50 Smoking pack-years: 50.00 Smoking status: Former smoker Second hand tobacco smoke exposure: Yes Alcohol intake: never Substance use: never Substance use type: does not use Do You Feel Safe in your Home?: Yes Lack of Transportation: No Lack of Food: Sometimes True Current Housing: I Have Housing Concerned About Future Housing: No Difficulty Paying Gas/Electric Bills: No Difficulty Paying for Meds: No Currently Unemployed: No Education: Trade/Vocational Certificate Difficulty w/ Childcare or Family Care: No Living arrangements: with family Occupation/Education: occupation 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 Gender identity (if verbalized by the patient): Female Sexual Orientation (if Verbalized by the Patient): Straight or Heterosexual Spiritual care concerns: No Agree to blood products: Yes Meds Home Medications and Allergies Home Medications Medication Instructions Recorded Confirmed Type oxybutynin chloride 10 mg 10 mg PO DAILY 10/27/20 02/27/24 History tablet,extended release 24 hr mirabegron 25 mg tablet,extended 1 tablet PO DAILY 11/25/21 02/27/24 History release 24 hr (Myrbetriq) atorvastatin 40 mg tablet 20 mg PO DAILY #90 tabs 08/15/22 02/27/24 Rx blood-glucose meter,continuous 11/08/23 02/27/24 History (FreeStyle Benedicto 3 [place]) spironolactone 25 mg tablet 25 mg PO DAILY #100 tabs 11/08/23 02/27/24 Rx ferrous sulfate 325 mg (65 mg 325 mg PO BID #180 tabs 01/01/24 02/27/24 Rx iron) tablet levothyroxine 25 mcg tablet 25 mcg PO DAILY #100 tabs 02/05/24 02/27/24 Rx omeprazole 40 mg capsule,delayed 40 mg PO DAILY #30 caps 02/05/24 02/27/24 Rx release tirzepatide 10 mg/0.5 mL 10 mg (0.5 mL) subcut WEEKLY #6 mL 02/07/24 02/27/24 Rx subcutaneous pen injector amlodipine 10 mg tablet 10 mg PO DAILY 02/27/24 02/27/24 History metformin 1,000 mg tablet 1,000 mg PO BID 02/27/24 02/27/24 History nadolol 20 mg tablet 20 mg PO DAILY 02/27/24 02/27/24 History valsartan 160 mg tablet 160 mg PO DAILY 02/27/2402/26
[2024-02-26 22:01] LABS: Glucose Point of Care 93 mg/dl (65-105)
[2024-02-26] MEDS: MAGNESIUM SULF 2 GM/WATER 50ML 2 GM/50 ML BAG IVPB (22:13)
[2024-02-26] MEDS: SODIUM CHLORIDE 0.9% IV 1,000 ML 125 ML IV CONT (22:13)
[2024-02-26 22:48] LABS: Glucose Point of Care 129 mg/dl (65-105)
[2024-02-26 23:26] VITALS: BP 94/47; PULSE 82; RESP 16; TEMP 36.6; O2SAT 94
[2024-02-26 23:57] VITALS: BP 153/69; PULSE 92; RESP 16; TEMP 36.7; O2SAT 99; BMI 37.2
--- NOTE | 2024-02-26 23:57 | ADMGEN ---
This patient, Antonia Rosales, was admitted to IMU Room 210-01. Patient/family oriented to hospital policies and general routines including ID bracelet, bed and alarms, visiting hours, pain management, procedures, bathroom and other care routines, personal items, smoking policy, room service/diet, and visiting hours. Information on how to activate the Rapid Response Team has been discussed. Patient/Family are encouraged to report perceived risks to care and to ask questions if they do not understand what they are told or what they should do.
[2024-02-27] VITALS (18 sets, daily range): BP systolic 106–117; BP diastolic 41–92; PULSE 71–92; RESP 16–20; TEMP 36.4–36.9; O2SAT 93–100
[2024-02-27 02:05] LABS: Anion Gap 11 mmol/L (4-12); Blood Urea Nitrogen 37 mg/dL (7-17); Calcium 9.2 mg/dL (8.4-10.2); Carbon Dioxide 18 mmol/L (22-30); Chloride 108 mmol/L (98-107); Estimated CRCL calculation 31 ml/min; Estimated Glomerular Filt Rate 29; Glucose 120 mg/dL (65-110); Potassium 5.1 mmol/L (3.4-5.0); Sodium 137 mmol/L (137-145)
[2024-02-27] MEDS: LEVOTHYROXINE SODIUM 25 MCG TABLET PO (05:42)
[2024-02-27 05:45] LABS: Anion Gap 11 mmol/L (4-12); Blood Urea Nitrogen 35 mg/dL (7-17); Calcium 9.4 mg/dL (8.4-10.2); Carbon Dioxide 19 mmol/L (22-30); Chloride 107 mmol/L (98-107); Estimated CRCL calculation 33 ml/min; Estimated Glomerular Filt Rate 32; Glucose 128 mg/dL (65-110); Potassium 5.5 mmol/L (3.4-5.0); Sodium 137 mmol/L (137-145)
[2024-02-27] MEDS: SODIUM CHLORIDE 0.9% IV 1,000 ML 125 ML IV CONT (05:45)
[2024-02-27] MEDS: PANTOPRAZOLE 40 MG TABLET PO ×2 (09:16→21:01)
[2024-02-27] MEDS: MIRABEGRON 25 MG ER TABLET PO (09:16)
[2024-02-27] MEDS: amLODIPine BESYLATE 10 MG TABLET PO (09:16)
[2024-02-27] MEDS: VENLAFAXINE HCL XR 75 MG CAP.ER.24H 150 MG PO (09:16)
[2024-02-27] MEDS: ATORVASTATIN 20 MG TABLET PO (09:16)
[2024-02-27] MEDS: nadoloL 20 MG TABLET PO (09:17)
[2024-02-27] MEDS: oxyBUTYnin CHLORIDE XL 5 MG TAB.ER.24 10 MG PO (09:25)
--- NOTE | 2024-02-27 10:30 | PM.IMPN ---
Progress Note: A&P Assessment and Plan (1) Acute hyperkalemia: Code(s): E87.5 - Hyperkalemia Status: Acute Assessment and Plan: admit to IMU patient received calcium gluconate, D50, insulin, Lokelma repeat potassium is within normal limits hold spironolactone (2) Chronic kidney disease, unspecified: Code(s): N18.9 - Chronic kidney disease, unspecified Status: Acute Assessment and Plan: continue to monitor BUN and creatinine (3) Iron deficiency anemia: Code(s): D50.9 - Iron deficiency anemia, unspecified Status: Acute Assessment and Plan: follow-up in outpatient setting (4) Benign essential hypertension: Code(s): I10 - Essential (primary) hypertension Status: Acute Assessment and Plan: hold valsartan as might contribute to hyperkalemia as well as spironolactone resume as needed continue amlodipine (5) Type 2 diabetes mellitus: Code(s): E11.9 - Type 2 diabetes mellitus without complications Status: Acute Assessment and Plan: hold metformin ISS as needed (6) Osteoarthritis: Code(s): M19.90 - Unspecified osteoarthritis, unspecified site Status: Acute Assessment and Plan: Tylenol p.r.n. (7) GERD (gastroesophageal reflux disease): Code(s): K21.9 - Gastro-esophageal reflux disease without esophagitis Status: Acute Assessment and Plan: PPI Subjective Date/time seen: 02/27/24 10:30 Interval history: Patient was evaluated at the bedside. Patient was admitted due to hyperkalemia. Patient reports of having IV infusion from July,, also patient receives epotein injection every 2 weeks. Patient follow-up with Dr. Davis for her anemia. Yesterday patient received blood analysis report where her potassium was high and advised to seek urgent medical care. During the hospitalization patient received 20 units of insulin, sodium bicarbonate, 10 mg of Lokelma, calcium gluconate. Nephrology is on board. Review of Systems Review of Systems: abnormal potassium level in lab work extremely elevated Exam Const: General: comfortable, no acute distress, well developed, alert, awake and average body habitus Nutritional Appearance: average body habitus Orientation/consciousness: patient oriented x3 HENMT: Head: normal to inspection, normocephalic and atraumatic Ears: hearing grossly normal bilaterally Face/Nose/Sinus: normal facial exam Face and sinus: normal facial exam Eyes: General: appearance normal, both eyes and all related structures Pupils: Equal, round and reactive pupils present EOM: EOMs intact bilaterally Neck: Neck: full ROM, no lymphadenopathy and no JVD Thyroid: thyroid normal Lymphatic: no lymphadenopathy noted Resp: Effort & Inspection: normal respiratory effort and able to speak in complete sentences Auscultation: clear to auscultation bilaterally Cardio: Jugular venous distension: no JVD Rate: regular rate Rhythm: regular rhythm Heart sounds: S1 normal heart sound present and S2 normal heart sound present : General: Yes deferred Skin: Rashes: no rashes Wounds: no wounds Neuro: General: patient oriented x3 and CN's II-XI intact bilaterally Cranial nerves: Yes CN's II-XII intact bilaterally and Yes Equal, round and reactive pupils present Cognition (Neuro): normal cognition Speech: normal speech Gait exam (Neuro): Normal gait present Motor exam (neuro): 5/5 motor strength present throughout Extrem: General: normal to inspection, full ROM, no joint enlargement and no pedal edema Objective Data Vital Signs Vital Signs: Vital Signs - 24 hr 02/26/24 16:37 02/26/24 19:01 02/26/24 21:04 Temperature 97.4 F L 97.3 F L 98.2 F Pulse Rate 86 86 88 Respiratory Rate 18 22 H 16 Blood Pressure 125/63 136/61 103/44 L Pulse Oximetry 97 100 99 Oxygen Delivery Room Air 02/26/24 23:26 02/26/24 23:57 02/27/24 00:00 Temperature 98 F 98.1
[2024-02-27] MEDS: SODIUM ZIRCONIUM CYCLOSILICATE 5 GM POWD.PACK PO ×3 (10:39→21:02)
--- NOTE | 2024-02-27 10:47 | PM.CNNEP ---
History of Present Illness Reason for Consult Consult date: 02/27/24 Reason for consult: acute renal failure and hyperkalemia Chief Complaint Chief complaint: Hyperkalemia, Hypoglycemia, Acute kidney injury Review of Systems Review of Systems: As per HPI. [facility] Past Medical History Medical History Anxiety and depression Benign essential hypertension Cirrhosis of liver without ascites CKD stage G3a/A1, GFR 45-59 and albumin creatinine ratio <30 mg/g COVID-19 Hx of adenomatous colonic polyps Hypothyroidism Lumbar degenerative disc disease Mixed hyperlipidemia Osteoarthritis Screening for breast cancer Splenic artery aneurysm Type 2 diabetes mellitus without complication, without long-term current use of insulin Family History Family History Mother Depression Family history of liver disease Family history of arthritis Father Family history of chronic obstructive pulmonary disease Family history of lung cancer Family history of primary malignant neoplasm of liver Social History Social History Smoking packs per day: 1 Smoking cigarettes per day: 20.0 Years smoked: 50 Smoking pack-years: 50.00 Smoking status: Former smoker Second hand tobacco smoke exposure: Yes Alcohol intake: never Substance use: never Substance use type: does not use Do You Feel Safe in your Home?: Yes Lack of Transportation: No Lack of Food: Sometimes True Current Housing: I Have Housing Concerned About Future Housing: No Difficulty Paying Gas/Electric Bills: No Difficulty Paying for Meds: No Currently Unemployed: No Education: Trade/Vocational Certificate Difficulty w/ Childcare or Family Care: No Living arrangements: with family Occupation/Education: occupation 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 Gender identity (if verbalized by the patient): Female Sexual Orientation (if Verbalized by the Patient): Straight or Heterosexual Spiritual care concerns: No Agree to blood products: Yes Meds Home Medications and Allergies Home Medications Medication Instructions Recorded Confirmed Type oxybutynin chloride 10 mg 10 mg PO DAILY 10/27/20 02/27/24 History tablet,extended release 24 hr mirabegron 25 mg tablet,extended 1 tablet PO DAILY 11/25/21 02/27/24 History release 24 hr (Myrbetriq) atorvastatin 40 mg tablet 20 mg PO DAILY #90 tabs 08/15/22 02/27/24 Rx blood-glucose meter,continuous 11/08/23 02/27/24 History (MadelineStyle Benedicto 3 [place]) spironolactone 25 mg tablet 25 mg PO DAILY #100 tabs 11/08/23 02/27/24 Rx ferrous sulfate 325 mg (65 mg 325 mg PO BID #180 tabs 01/01/24 02/27/24 Rx iron) tablet levothyroxine 25 mcg tablet 25 mcg PO DAILY #100 tabs 02/05/24 02/27/24 Rx omeprazole 40 mg capsule,delayed 40 mg PO DAILY #30 caps 02/05/24 02/27/24 Rx release tirzepatide 10 mg/0.5 mL 10 mg (0.5 mL) subcut WEEKLY #6 mL 02/07/24 02/27/24 Rx subcutaneous pen injector amlodipine 10 mg tablet 10 mg PO DAILY 02/27/24 02/27/24 History metformin 1,000 mg tablet 1,000 mg PO BID 02/27/24 02/27/24 History nadolol 20 mg tablet 20 mg PO DAILY 02/27/24 02/27/24 History valsartan 160 mg tablet 160 mg PO DAILY 02/27/24 02/27/24 History venlafaxine 150 mg 150 mg PO DAILY 02/27/24 02/27/24 History capsule,extended release 24 hr Allergies Allergy/AdvReac Type Severity Reaction Status Date / Time adhesive tape Allergy Unknown Hives Verified 02/26/24 16:40 Vital Signs Vital Signs Temp Pulse Resp BP Pulse Ox O2 Del Method 02/27/24 09:48 96 Room Air 02/27/24 08:00 100 Room Air 02/27/24 09:17 89 02/27/24 08:00 97.9 F 84 20 117/63 100 02/27/24 06:00 79 02/27/24 04:00 83 02/27/24 04:00 86 16 93 Room Air 02/27/24 04:20 98.2
[2024-02-27] MEDS: FERROUS SULFATE 325 MG TABLET DR PO ×2 (12:21→16:05)
[2024-02-27] MEDS: SODIUM CHLORIDE 0.9% IV 1,000 ML 50 ML IV CONT (13:47)
[2024-02-27 14:33] LABS: Eosinophil Urine None Seen % (None Seen); Urine Eos QC 2nd Tech Confirmed
[2024-02-27 14:55] LABS: Creatinine Urine 25.4 mg/dL; Total Protein Urine Random 9 mg/dL; Ur Ttl Prot Creatinine Ratio 0.35 mg/mg (0-0.20)
[2024-02-27 15:09] LABS: Creatinine Urine 24.7 mg/dL; Total Protein Urine Random 9 mg/dL; Urea Random Urine 271 MG/DL
[2024-02-27 15:10] LABS: Sodium Urine Random 79 meq/L
[2024-02-27 15:21] LABS: Add Urine Microscopic? YES; Appearance Urine Clear (Clear); Bacteria Urine 4+ /hpf; Bilirubin Urine Negative (Negative); Blood Urine Negative (Negative); Color Urine Yellow (Yellow); Glucose Urine UA Negative (Negative); Ketones Urine Negative (Negative); Leukocyte Esterase Ur Trace LEU/UL (Negative); Nitrate Urine Negative (Negative); Non Pathogenic Casts 0-2; Protein Urine Negative (Negative); RBC Urine 0-2 /hpf (0-2); Specific Grav Ur 1.008 (1.001-1.035); Squamous Epithelial Cell Urine None Seen /hpf (Few); Urobilinogen Urine 0.2 mg/dL (<2.0); pH Urine 5.5 (5.0-9.0)
[2024-02-28] VITALS (15 sets, daily range): BP systolic 100–123; BP diastolic 51–76; PULSE 74–99; RESP 18; TEMP 36.6–36.8; O2SAT 95–100
[2024-02-28 05:23] LABS: Hematocrit 30.6 % (37.0-47.0); Hemoglobin 9.1 g/dL (12.0-15.0); Mean Corpuscular HGB Conc 29.7 g/dl (32-36); Mean Corpuscular Hemoglobin 29.4 pg (26-34); Mean Corpuscular Volume 98.7 fl (80-100); Mean Platelet Volume 11.5 fl (7.4-10.4); Platelet Count Result 140 k/mm3 (150-375); Red Cell Distribution Width 17.3 % (11.5-14.5); White Blood Count 5.7 K/mm3 (4.5-10.0)
[2024-02-28 05:33] LABS: Alanine Aminotransferase 20 U/L (6-35); Albumin Level 3.7 g/dL (3.5-5.1); Alkaline Phosphatase 127 U/L (38-126); Anion Gap 9 mmol/L (4-12); Aspartate Amino Transferase 31 U/L (14-36); Bilirubin,Total 0.4 mg/dL (0.2-1.3); Blood Urea Nitrogen 24 mg/dL (7-17); Calcium 8.7 mg/dL (8.4-10.2); Carbon Dioxide 21 mmol/L (22-30); Chloride 108 mmol/L (98-107); Creatine Kinase 35 U/L (30-135); Estimated CRCL calculation 41 ml/min; Estimated Glomerular Filt Rate 40; Glucose 127 mg/dL (65-110); Lactate Dehydrogenase 148 U/L (120-246); Magnesium 1.3 mg/dL (1.6-2.3); Sodium 138 mmol/L (137-145)
[2024-02-28] MEDS: LEVOTHYROXINE SODIUM 25 MCG TABLET PO (05:53)
[2024-02-28 06:47] LABS: Free T4 Free Thyroxine Reflex 1.23 ng/dL (0.78-2.19)
[2024-02-28] MEDS: MAGNESIUM SULF 2 GM/WATER 50ML 2 GM/50 ML BAG IVPB (07:40)
[2024-02-28 07:57] LABS: Total Triiodothyronine (T3) 1.15 NG/ML (0.97-1.69)
[2024-02-28] MEDS: VENLAFAXINE HCL XR 75 MG CAP.ER.24H 150 MG PO (09:23)
[2024-02-28] MEDS: nadoloL 20 MG TABLET PO (09:23)
[2024-02-28] MEDS: PANTOPRAZOLE 40 MG TABLET PO ×2 (09:25→20:22)
[2024-02-28] MEDS: MIRABEGRON 25 MG ER TABLET PO (09:25)
[2024-02-28] MEDS: oxyBUTYnin CHLORIDE XL 5 MG TAB.ER.24 10 MG PO (09:25)
[2024-02-28] MEDS: ATORVASTATIN 20 MG TABLET PO (09:25)
[2024-02-28] MEDS: SODIUM ZIRCONIUM CYCLOSILICATE 5 GM POWD.PACK PO ×2 (10:13→14:57)
[2024-02-28] MEDS: amLODIPine BESYLATE 10 MG TABLET PO (10:13)
[2024-02-28] MEDS: SODIUM CHLORIDE 0.9% IV 1,000 ML 50 ML IV CONT (11:37)
[2024-02-28] MEDS: FERROUS SULFATE 325 MG TABLET DR PO ×2 (11:38→16:28)
--- NOTE | 2024-02-28 12:43 | PM.PNNEP ---
Subjective Date/time seen: 02/28/24 12:43 Exam Narrative: General: large but WD/WN female in NAD Heart: normal S1 and S2; no rub Lungs: clear to auscultation Abdomen: soft, nontender, nondistended, positive bowel sounds Extremities: no cyanosis or clubbing; no edema Skin: warm and dry Objective Data Vital Signs Vital Signs: Vital Signs Temp Pulse Resp BP Pulse Ox O2 Del Method 02/28/24 12:05 98 F 79 18 120/60 98 02/28/24 08:00 99 02/28/24 10:10 122/76 02/28/24 09:23 83 02/28/24 08:00 96 Room Air 02/28/24 07:59 98.2 F 77 18 100/51 L 98 02/28/24 05:52 84 02/28/24 04:00 98.2 F 92 18 123/62 97 02/28/24 04:00 93 02/28/24 03:57 95 Room Air 02/28/24 02:00 77 02/28/24 00:00 91 02/28/24 00:00 95 Room Air 02/27/24 20:00 95 Room Air 02/27/24 23:55 98.0 F 82 16 107/41 L 95 02/27/24 22:00 80 02/27/24 20:00 78 02/27/24 20:00 98.4 F 80 16 110/53 L 95 02/27/24 16:00 100 Room Air 02/27/24 18:00 87 02/27/24 16:00 77 02/27/24 16:00 97.7 F 82 16 115/92 H 100 02/27/24 14:00 79 Intake/Output Intake/Output: Intake & Output 02/25/24 02/26/24 02/27/24 02/28/24 23:59 23:59 23:59 23:59 Intake Total 1999 3281.7 1540 Output Total 850 1000 Balance 1999 2431.7 540 Meds/Results Medications: Active Medications Generic Name Dose Route Start Last Admin Trade Name Freq PRN Reason Stop Dose Admin Amlodipine Besylate 10 mg 02/27/24 09:00 02/28/24 10:13 Amlodipine Besylate 10 Mg Tablet PO 10 mg DAILY LIZ Administration Atorvastatin Calcium 20 mg 02/27/24 09:00 02/28/24 09:25 Atorvastatin 20 Mg Tablet PO 20 mg DAILY LIZ Administration Dextrose 12.5 gm 02/26/24 19:31 02/26/24 22:15 Dextrose 50% 25 Gm/50 Ml Syringe IV PUSH 12.5 gm PRN PRN Administration Hypoglycemia Protocol Ferrous Sulfate 325 mg 02/27/24 12:00 02/28/24 11:38 Ferrous Sulfate [address] PO 325 mg 1200,1700 LIZ Administration Glucagon 1 mg 02/26/24 19:31 Glucagon For Inj 1 Mg Vial IM PRN PRN Hypoglycemia Protocol Glucose 15 gm 02/26/24 19:31 Glucose Oral Gel 15 Gm Of Glucse In 37.5 Gm Tube PO PRN PRN Hypoglycemia Protocol Dextrose 1,000 mls @ 100 mls/hr 02/26/24 19:31 Dextrose 5% 1,000 Ml IVPB PRN PRN Hypoglycemia Protocol Sodium Chloride 1,000 mls @ 50 mls/hr 02/26/24 22:05 02/28/24 11:37 Normal Saline Iv IV CONT 50 mls/hr .Q20H LIZ Administration Levothyroxine Sodium 25 mcg 02/27/24 06:30 02/28/24 05:53 Levothyroxine Sodium 25 Mcg Tablet PO 25 mcg DAILY@0630 LIZ Administration Mirabegron 25 mg 02/27/24 09:00 02/28/24 09:25 Mirabegron 25 Mg Er Tablet PO 25 mg DAILY LIZ Administration Nadolol 20 mg 02/27/24 09:00 02/28/24 09:23 Nadolol 20 Mg Tablet PO 20 mg DAILY LIZ Administration Oxybutynin Chloride 10 mg 02/27/24 09:00 02/28/24 09:25 Oxybutynin Chloride Xl 5 Mg Tab.Er.24 PO 10 mg DAILY LIZ Administration Pantoprazole Sodium 40 mg 02/27/24 09:00 02/28/24 09:25 Pantoprazole 40 Mg Tablet PO 40 mg Q12HR LIZ Administration Sodium Zirconium Cyclosilicate 5 gm 02/27/24 10:00 02/28/24 10:13 Sodium Zirconium Cyclosilicate 5 Gm Powd.Pack PO 5 gm TID@1000,1500,2200 LIZ Administration Venlafaxine HCl 150 mg 02/27/24 09:00 02/28/24 09:23 Venlafaxine Hcl Xr 75 Mg Cap.Er.24h PO 150 mg DAILY LIZ Administration Radiology Results: ITS Impressions Renal Ultrasound 02/27/24 15:21 IMPRESSION: 1. Normal kidney sizes. No hydronephrosis. Labs Labs: Laboratory Tests 02/28/24 05:03 02/28/24 05:03 02/27/24 02/27/24 02/27/24 13:45 13:45 13:45 WBC RBC Hgb Hct MCV MCH MCHC RDW Plt Count MPV Haptoglobin Sod
--- NOTE | 2024-02-28 15:17 | PM.IMPN ---
Progress Note: A&P Assessment and Plan (1) Acute hyperkalemia: Code(s): E87.5 - Hyperkalemia Status: Acute Assessment and Plan: admit to IMU patient received calcium gluconate, D50, insulin, Lokelma repeat potassium is within normal limits hold spironolactone (2) Chronic kidney disease, unspecified: Code(s): N18.9 - Chronic kidney disease, unspecified Status: Acute Assessment and Plan: continue to monitor BUN and creatinine (3) Iron deficiency anemia: Code(s): D50.9 - Iron deficiency anemia, unspecified Status: Acute Assessment and Plan: follow-up in outpatient setting (4) Benign essential hypertension: Code(s): I10 - Essential (primary) hypertension Status: Acute Assessment and Plan: hold valsartan as might contribute to hyperkalemia as well as spironolactone resume as needed continue amlodipine (5) Type 2 diabetes mellitus: Code(s): E11.9 - Type 2 diabetes mellitus without complications Status: Acute Assessment and Plan: hold metformin ISS as needed (6) Osteoarthritis: Code(s): M19.90 - Unspecified osteoarthritis, unspecified site Status: Acute Assessment and Plan: Tylenol p.r.n. (7) GERD (gastroesophageal reflux disease): Code(s): K21.9 - Gastro-esophageal reflux disease without esophagitis Status: Acute Assessment and Plan: PPI Subjective Date/time seen: 02/28/24 15:17 Interval history: No acute events overnight.Pending renal workup. Review of Systems Review of Systems: abnormal potassium level in lab work extremely elevated Exam Const: General: comfortable, no acute distress, well developed, alert, awake and average body habitus Nutritional Appearance: average body habitus Orientation/consciousness: patient oriented x3 HENMT: Head: normal to inspection, normocephalic and atraumatic Ears: hearing grossly normal bilaterally Face/Nose/Sinus: normal facial exam Face and sinus: normal facial exam Eyes: General: appearance normal, both eyes and all related structures Pupils: Equal, round and reactive pupils present EOM: EOMs intact bilaterally Neck: Neck: full ROM, no lymphadenopathy and no JVD Thyroid: thyroid normal Lymphatic: no lymphadenopathy noted Resp: Effort & Inspection: normal respiratory effort and able to speak in complete sentences Auscultation: clear to auscultation bilaterally Cardio: Jugular venous distension: no JVD Rate: regular rate Rhythm: regular rhythm Heart sounds: S1 normal heart sound present and S2 normal heart sound present : General: Yes deferred Skin: Rashes: no rashes Wounds: no wounds Neuro: General: patient oriented x3 and CN's II-XI intact bilaterally Cranial nerves: Yes CN's II-XII intact bilaterally and Yes Equal, round and reactive pupils present Cognition (Neuro): normal cognition Speech: normal speech Gait exam (Neuro): Normal gait present Motor exam (neuro): 5/5 motor strength present throughout Extrem: General: normal to inspection, full ROM, no joint enlargement and no pedal edema Objective Data Vital Signs Vital Signs: Vital Signs - 24 hr 02/27/24 16:00 02/27/24 16:00 02/27/24 18:00 Temperature 97.7 F Pulse Rate 82 77 87 Respiratory Rate 16 Blood Pressure 115/92 H Pulse Oximetry 100 Oxygen Delivery 02/27/24 16:00 02/27/24 20:00 02/27/24 20:00 Temperature 98.4 F Pulse Rate 80 78 Respiratory Rate 16 Blood Pressure 110/53 L Pulse Oximetry 100 95 Oxygen Delivery Room Air 02/27/24 22:00 02/27/24 23:55 02/27/24 20:00 Temperature 98.0 F Pulse Rate 80 82 Respiratory Rate 16 Blood Pressure 107/41 L Pulse Oximetry 95 95 Oxygen Delivery Room Air 02/28/24 00:00 02/28/24 00:00 02/28/24 02:00 Temperature Pulse Rate 91 77 Respiratory Rate Blood Pressure Pulse Oximetry 95 Oxygen Delivery Room Air 02/28/24 03:57
[2024-02-29] VITALS (7 sets, daily range): BP systolic 109–120; BP diastolic 57–60; PULSE 69–80; RESP 16–20; TEMP 36.4–36.5; O2SAT 97–100
[2024-02-29] MEDS: LEVOTHYROXINE SODIUM 25 MCG TABLET PO (05:53)
[2024-02-29 06:23] LABS: Hematocrit 32.9 % (37.0-47.0); Hemoglobin 9.7 g/dL (12.0-15.0); Mean Corpuscular HGB Conc 29.5 g/dl (32-36); Mean Corpuscular Hemoglobin 29.1 pg (26-34); Mean Corpuscular Volume 98.8 fl (80-100); Mean Platelet Volume 11.7 fl (7.4-10.4); Platelet Count Result 177 k/mm3 (150-375); Red Blood Count 3.33 M/mm3 (4.2-5.4); Red Cell Distribution Width 17.2 % (11.5-14.5); White Blood Count 7.7 K/mm3 (4.5-10.0)
[2024-02-29 06:34] LABS: Alanine Aminotransferase 21 U/L (6-35); Albumin Level 4.1 g/dL (3.5-5.1); Alkaline Phosphatase 139 U/L (38-126); Anion Gap 10 mmol/L (4-12); Aspartate Amino Transferase 36 U/L (14-36); Bilirubin,Total 0.5 mg/dL (0.2-1.3); Blood Urea Nitrogen 19 mg/dL (7-17); Carbon Dioxide 19 mmol/L (22-30); Chloride 109 mmol/L (98-107); Estimated CRCL calculation 44 ml/min; Estimated Glomerular Filt Rate 44; Glucose 142 mg/dL (65-110); Magnesium 1.8 mg/dL (1.6-2.3); Potassium 4.8 mmol/L (3.4-5.0); Sodium 138 mmol/L (137-145)
[2024-02-29] MEDS: oxyBUTYnin CHLORIDE XL 5 MG TAB.ER.24 10 MG PO (09:48)
[2024-02-29] MEDS: MIRABEGRON 25 MG ER TABLET PO (09:48)
[2024-02-29] MEDS: nadoloL 20 MG TABLET PO (09:48)
[2024-02-29] MEDS: VENLAFAXINE HCL XR 75 MG CAP.ER.24H 150 MG PO (09:48)
[2024-02-29] MEDS: amLODIPine BESYLATE 10 MG TABLET PO (09:49)
[2024-02-29] MEDS: ATORVASTATIN 20 MG TABLET PO (09:49)
[2024-02-29] MEDS: PANTOPRAZOLE 40 MG TABLET PO (09:49)
[2024-02-29] MEDS: SODIUM CHLORIDE 0.9% IV 1,000 ML 50 ML IV CONT (09:49)
[2024-02-29 12:19] LABS: Haptoglobin 184 mg/dL (43-212)
[2024-02-29] MEDS: FERROUS SULFATE 325 MG TABLET DR PO (12:23)
--- NOTE | 2024-02-29 13:00 | PM.PNNEP ---
Subjective Date/time seen: 02/29/24 11:39 Objective Data Vital Signs Vital Signs: Vital Signs Temp Pulse Resp BP Pulse Ox O2 Del Method 02/29/24 11:48 97.5 F L 74 16 109/60 100 02/29/24 08:00 79 02/29/24 08:00 97 Room Air 02/29/24 09:48 74 02/29/24 07:39 97.7 F 80 20 120/57 L 97 02/29/24 04:00 78 02/29/24 00:00 75 02/28/24 23:24 78 02/28/24 20:00 100 Room Air 02/28/24 20:00 75 02/28/24 19:49 97.9 F 74 18 114/63 100 02/28/24 16:00 78 02/28/24 16:00 98.1 F 76 18 109/61 98 Intake/Output Intake/Output: Intake & Output 02/26/24 02/27/24 02/28/24 02/29/24 23:59 23:59 23:59 23:59 Intake Total 1999 3281.7 2620 2360 Output Total 850 2150 800 Balance 1999 2431.7 470 1560 Meds/Results Medications: Active Medications Generic Name Dose Route Start Last Admin Trade Name Freq PRN Reason Stop Dose Admin Amlodipine Besylate 10 mg 02/27/24 09:00 02/29/24 09:49 Amlodipine Besylate 10 Mg Tablet PO 10 mg DAILY LIZ Administration Atorvastatin Calcium 20 mg 02/27/24 09:00 02/29/24 09:49 Atorvastatin 20 Mg Tablet PO 20 mg DAILY LIZ Administration Dextrose 12.5 gm 02/26/24 19:31 02/26/24 22:15 Dextrose 50% 25 Gm/50 Ml Syringe IV PUSH 12.5 gm PRN PRN Administration Hypoglycemia Protocol Ferrous Sulfate 325 mg 02/27/24 12:00 02/29/24 12:23 Ferrous Sulfate [address] PO 325 mg 1200,1700 LIZ Administration Glucagon 1 mg 02/26/24 19:31 Glucagon For Inj 1 Mg Vial IM PRN PRN Hypoglycemia Protocol Glucose 15 gm 02/26/24 19:31 Glucose Oral Gel 15 Gm Of Glucse In 37.5 Gm Tube PO PRN PRN Hypoglycemia Protocol Dextrose 1,000 mls @ 100 mls/hr 02/26/24 19:31 Dextrose 5% 1,000 Ml IVPB PRN PRN Hypoglycemia Protocol Sodium Chloride 1,000 mls @ 50 mls/hr 02/26/24 22:05 02/29/24 09:49 Normal Saline Iv IV CONT 50 mls/hr .Q20H LIZ Administration Levothyroxine Sodium 25 mcg 02/27/24 06:30 02/29/24 05:53 Levothyroxine Sodium 25 Mcg Tablet PO 25 mcg DAILY@0630 LIZ Administration Mirabegron 25 mg 02/27/24 09:00 02/29/24 09:48 Mirabegron 25 Mg Er Tablet PO 25 mg DAILY LIZ Administration Nadolol 20 mg 02/27/24 09:00 02/29/24 09:48 Nadolol 20 Mg Tablet PO 20 mg DAILY LIZ Administration Oxybutynin Chloride 10 mg 02/27/24 09:00 02/29/24 09:48 Oxybutynin Chloride Xl 5 Mg Tab.Er.24 PO 10 mg DAILY LIZ Administration Pantoprazole Sodium 40 mg 02/27/24 09:00 02/29/24 09:49 Pantoprazole 40 Mg Tablet PO 40 mg Q12HR LIZ Administration Sodium Zirconium Cyclosilicate 5 gm 02/27/24 10:00 02/28/24 14:57 Sodium Zirconium Cyclosilicate 5 Gm Powd.Pack PO 5 gm TID@1000,1500,2200 LIZ Administration Venlafaxine HCl 150 mg 02/27/24 09:00 02/29/24 09:48 Venlafaxine Hcl Xr 75 Mg Cap.Er.24h PO 150 mg DAILY LIZ Administration Radiology Results: ITS Impressions Renal Ultrasound 02/27/24 15:21 IMPRESSION: 1. Normal kidney sizes. No hydronephrosis. Labs Labs: Laboratory Tests 02/29/24 05:43 02/29/24 05:43 02/28/24 02/29/24 05:03 05:43 WBC 7.7 RBC 3.33 L Hgb 9.7 L Hct 32.9 L MCV 98.8 MCH 29.1 MCHC 29.5 L RDW 17.2 H Plt Count 177 MPV 11.7 H Haptoglobin 184 Sodium 138 Potassium 4.8 Chloride 109 H Carbon Dioxide 19 L Anion Gap 10 BUN 19 H Creatinine 1.20 H Estim Creat Clear Calc 44 Estimated GFR 44 L Glucose 142 H Calcium 9.0 Magnesium 1.8 Total Bilirubin 0.5 AST 36 ALT 21 Alkaline Phosphatase 139 H Total Protein 7.0 Albumin 4.1 Microbiology 02/27/24 15:06 Unspecified Urine Culture - Preliminary Gram negative bacilli isolated
[2024-02-29 13:23] LABS: Osmolality, Urine 319 mOsm/kg (50-1200)
--- NOTE | 2024-02-29 14:25 | PM.DS ---
DS: Admitting Diagnosis Discharge Date 02/29/2024 Admitting Diagnosis Hyperkalemia DS: Discharge Diagnosis Discharge Diagnosis (1) Acute hyperkalemia: Code(s): E87.5 - Hyperkalemia Status: Acute Assessment and Plan: admit to IMU patient received calcium gluconate, D50, insulin, Lokelma repeat potassium is within normal limits hold spironolactone (2) Chronic kidney disease, unspecified: Code(s): N18.9 - Chronic kidney disease, unspecified Status: Acute Assessment and Plan: continue to monitor BUN and creatinine (3) Iron deficiency anemia: Code(s): D50.9 - Iron deficiency anemia, unspecified Status: Acute Assessment and Plan: follow-up in outpatient setting (4) Benign essential hypertension: Code(s): I10 - Essential (primary) hypertension Status: Acute Assessment and Plan: hold valsartan as might contribute to hyperkalemia as well as spironolactone resume as needed continue amlodipine (5) Type 2 diabetes mellitus: Code(s): E11.9 - Type 2 diabetes mellitus without complications Status: Acute Assessment and Plan: hold metformin ISS as needed (6) Osteoarthritis: Code(s): M19.90 - Unspecified osteoarthritis, unspecified site Status: Acute Assessment and Plan: Tylenol p.r.n. (7) GERD (gastroesophageal reflux disease): Code(s): K21.9 - Gastro-esophageal reflux disease without esophagitis Status: Acute Assessment and Plan: PPI DS: Summary Hospital Course Hospital Course: 73-year-old female with past medical history significant for hypertension, type 2 diabetes mellitus, chronic kidney disease, generalized anxiety disorder, depression, hepatic cirrhosis. Patient presents to the emergency room after lab work showed an elevated potassium. Patient denies any chest pain leg swelling nausea vomiting diarrhea abdominal pain fevers rigors or chills. Has been her usual state of health up until this point. Initial potassium in the emergency room was 6 a repeat potassium was 7 patient 02/26-02/27: Patient was admitted due to hyperkalemia. Patient reports of having IV infusion from July,, also patient receives epotein injection every 2 weeks. Patient follow-up with Dr. Davis for her anemia. Yesterday patient received blood analysis report where her potassium was high and advised to seek urgent medical care. During the hospitalization patient received 20 units of insulin, sodium bicarbonate, 10 mg of Lokelma, calcium gluconate. Nephrology is on board. 02/28: Discussed the case with the solar installer technician who agrees with the discharge. The possible reason of hyperkalemia might be due to the spironolactone and valsartan. We discontinue the spironolactone but currently holding valsartan and advised to seek PCP or the solar installer technician in a week admitting the decision to continue or discontinue valsartan in accordance to the hypertension. Status at Discharge Cognitive/behavioral status at discharge: Stable Time Spent with Patient Time attestation: Total time spent providing and/or coordinating discharge services: 45 minute Exam Const: General: comfortable, no acute distress, well developed, alert, awake and average body habitus Nutritional Appearance: average body habitus Orientation/consciousness: patient oriented x3 HENMT: Head: normal to inspection, normocephalic and atraumatic Ears: hearing grossly normal bilaterally Face/Nose/Sinus: normal facial exam Face and sinus: normal facial exam Eyes: General: appearance normal, both eyes and all related structures Pupils: Equal, round and reactive pupils present EOM: EOMs intact bilaterally Neck: Neck: full ROM, no lymphadenopathy and no JVD Thyroid: thyroid normal Lymphatic: no lymphadenopathy noted Resp: Effort & Inspection: normal respiratory effort and able to speak in complete sentences Auscultation: clear to auscultation terra
[2024-03-06 21:43] LABS: PRA 5.06 ng/mL/h (0.25-5.82)
[2024-03-06 21:53] LABS: Renin 4.91 ng/mL/h (0.25-5.82)
== END 2024-02-29 15:05 | disposition home or self-care (01) ==
LOC: ANHED 22:05 → ANHIMU 02-27 01:05
PROVIDERS: Internal Medicine Nephrology; Physician Assistant; Admitting Provider Internal Medicine; Emergency Provider Emergency Medicine; PCP Nurse Practitioner Family; Visit Provider General Practice
DX: E87.5 Hyperkalemia (principal); E83.42 Hypomagnesemia; I12.9 Hypertensive chronic kidney disease with stage 1 through stage 4 chronic kidney disease, or unspecified chronic kidney disease; E11.22 Type 2 diabetes mellitus with diabetic chronic kidney disease; N18.31 Chronic kidney disease, stage 3a; D50.9 Iron deficiency anemia, unspecified; K74.60 Unspecified cirrhosis of liver; E78.2 Mixed hyperlipidemia; F41.1 Generalized anxiety disorder; F32.A Depression, unspecified; M19.90 Unspecified osteoarthritis, unspecified site; K21.9 Gastro-esophageal reflux disease without esophagitis; M51.369 Other intervertebral disc degeneration, lumbar region without mention of lumbar back pain or lower extremity pain; Z86.16 Personal history of COVID-19; E66.9 Obesity, unspecified; Z68.38 Body mass index [BMI] 38.0-38.9, adult; E03.9 Hypothyroidism, unspecified; F17.210 Nicotine dependence, cigarettes, uncomplicated; Z79.84 Long term (current) use of oral hypoglycemic drugs; Z79.85 Long-term (current) use of injectable non-insulin antidiabetic drugs
CPT/HCPCS: 36415; 76775; 80048; 80053; 81001; 81050; 82088; 82533; 82550; 82570; 82607; 82728; 82948; 83010; 83540; 83550; 83615; 83735; 83930; 83935; 84132; 84133; 84156; 84244; 84300; 84439; 84443; 84480; 84540; 85025; 85027; 85999; 87077; 87086; 87186; 93005; 96361; 96374; 96375; 96376; 99285; A9270; G0378; J0612; J1815; J1940; J3475; J7030

== ENCOUNTER 2024-03-05 11:19 | Outpatient (CLI) | payer MEDICARE, SELFPAY ==
[2024-03-05 12:21] LABS: Albumin Level 4.3 g/dL (3.5-5.1); Anion Gap 13 mmol/L (4-12); Blood Urea Nitrogen 23 mg/dL (7-17); Calcium 9.4 mg/dL (8.4-10.2); Carbon Dioxide 23 mmol/L (22-30); Chloride 103 mmol/L (98-107); Estimated Glomerular Filt Rate 44; Glucose 136 mg/dL (65-110); Magnesium 1.1 mg/dL (1.6-2.3); Phosphorus 3.5 mg/dL (2.5-4.5); Potassium 4.5 mmol/L (3.4-5.0); Sodium 139 mmol/L (137-145)
== END 2024-03-05 11:20 | disposition home or self-care (01) ==
LOC: ANHLAB 11:20
PROVIDERS: Internal Medicine Nephrology; PCP Nurse Practitioner Family; Visit Provider Internal Medicine Hematology & Oncology
DX: E83.42 Hypomagnesemia (principal); E87.5 Hyperkalemia; N17.9 Acute kidney failure, unspecified
CPT/HCPCS: 36415; 80069; 83735

== ENCOUNTER 2024-04-25 11:31 | Outpatient (CLI) | payer MEDICARE, MEDICAID, SELFPAY ==
--- NOTE | ~2024-04-25 | US_ITS ---
EXAMINATION: US thyroid DATE: 04/25/2024 12:50 INDICATION: Hypothyroidism, unspecified. TECHNIQUE: Multiple ultrasound images of the thyroid were obtained. COMPARISON: Ultrasound 07/28/2022, 07/08/19, 04/09/18 FINDINGS: The right thyroid lobe measures 5.3 x 1.4 x 2.1 cm. The left thyroid lobe measures 5.2 x 1.9 x 2.5 c m. In the right thyroid lobe, there is a 14 mm predominantly solid, hypoechoic, wider than tall nodu le with smooth margin without echogenic foci (TI-RADS TR4) that measured 11 mm on 07/08/19. There are multiple subcentimeter nodules in the thyroid. In the right thyroid lobe, there is a 15 mm mixed cyst ic and solid, hypoechoic, wider than tall nodule with lobulated margin without echogenic foci (TR4), stable from 07/08/19, likely benign. In the left thyroid lobe, there is a 2.3 cm solid, isoechoic, wid er than tall nodule with ill-defined margin without echogenic foci (TR3), stable from 04/09/18 when b iopsy was benign. In the left thyroid lobe, there is a 12 mm solid, very hypoechoic, wider than tall nodule with smooth margin without echogenic foci (TR4), stable from 07/08/19, likely benign. IMPRESSION: 1. Multinodular goiter. Thyroid ultrasound is recommended in one year. Reviewed, dictated and finalized at location A. RDS MANAGEMENT CLERK
== END 2024-04-25 11:32 | disposition home or self-care (01) ==
PROVIDERS: PCP Nurse Practitioner Family; Visit Provider Nurse Practitioner Family
DX: E03.9 Hypothyroidism, unspecified (principal); I12.9 Hypertensive chronic kidney disease with stage 1 through stage 4 chronic kidney disease, or unspecified chronic kidney disease; E11.22 Type 2 diabetes mellitus with diabetic chronic kidney disease; N18.30 Chronic kidney disease, stage 3 unspecified; E04.1 Nontoxic single thyroid nodule; D63.1 Anemia in chronic kidney disease; M51.369 Other intervertebral disc degeneration, lumbar region without mention of lumbar back pain or lower extremity pain; Z79.899 Other long term (current) drug therapy
CPT/HCPCS: 76536

== ENCOUNTER 2024-05-08 09:02 | Outpatient (CLI) | payer MEDICARE, MEDICAID, SELFPAY ==
[2024-05-08 10:18] LABS: Add Urine Microscopic? YES; Appearance Urine Cloudy (Clear); Bacteria Urine 4+ /hpf; Bilirubin Urine Negative (Negative); Blood Urine Negative (Negative); Color Urine Dark Yellow (Yellow); Glucose Urine UA Negative (Negative); Ketones Urine Trace mg/dL (Negative); Leukocyte Esterase Ur 2+ LEU/UL (Negative); Nitrate Urine Positive (Negative); Non Pathogenic Casts 0-2; Protein Urine Trace mg/dL (Negative); RBC Urine 0-2 /hpf (0-2); Specific Grav Ur 1.019 (1.001-1.035); Squamous Epithelial Cell Urine Few /hpf (Few); WBC Urine >100 /hpf (0-3); pH Urine 6.5 (5.0-9.0)
[2024-05-08 10:47] LABS: Hemoglobin A1C 7.4 % (<5.7)
== END 2024-05-08 09:03 | disposition home or self-care (01) ==
PROVIDERS: PCP Nurse Practitioner Family; Visit Provider Nurse Practitioner Family
DX: R39.9 Unspecified symptoms and signs involving the genitourinary system (principal); E11.9 Type 2 diabetes mellitus without complications
CPT/HCPCS: 36415; 81001; 83036; 87077; 87086; 87186

== ENCOUNTER 2024-07-01 08:52 | Outpatient (CLI) | payer MEDICARE, MEDICAID, SELFPAY ==
--- OUTSIDE RECORDS SUMMARY | 2024-07-01 09:16 | XMS_ITS | Clinical Summary ---
Author Organization [facility] Address [address] [place] [address] Care Team Providers Care Manager Of Finance Name Role Phone Artur Henning DO Primary Care Provider [phone] Source Comments [facility],non-owned Affiliates and Associated Physician Practices is amultiple site organization consisting of ambulatory clinics and hospital sitesin [place], [place], [place] and [place]. This disclosure is being madepursuant to the Care Everywhere program and may not contain all information available regarding this patient. Last updated 18.[facility] Allergies No known active allergies Immunizations Name Administration Dates Next Due INFLUENZA VACCINE, HIGH-DOSE , QUADR. (FLUZONE HIGH-DOSE QUADRIVALENT; 65Y+), 0.7 ML (HD-IIV4) 03/16/2020 Social History Tobacco Use Types Packs/Day Years Used Date Smoking Tobacco: Never Assessed Sex and Gender Information Value Date Recorded Sex Assigned at Not on file Gender Identity Not on file Sexual Orientation Not on file Plan of Treatment Health Maintenance Due Date Last Done Comments BONE DENSITY TESTING 1950 COLOGUARD (AGES 45-75) - COL ON CA SCREENING 1949 COLON MONITORING 1949 COLONOSCOPY - COLON CA SCREENING 1949 CT COLONOGRAPHY - COLON CA SCREENING 1950 Colorectal Cancer Screening 1949 FIT - COLON CA SCREENING 1949 FLEX SIG - COLON CA SCREENING 1949 LIPID TESTING 1949 MAMMOGRAM 1949 HEPATITIS C SCREENING 05/30/1967 DTAP/TDAP/TD VACCINES (1 - Tdap) 1968 PNEUMOCOCCAL VACCINE 50+ (1 of 1 - PCV) 1999 ZOSTER VACCINE (1 of 2) 1999 COVID-19 VACCINE (1 - 2023-2 5 season) 2024 INFLUENZA VACCINE (#1) 2024 0, 03/25/2015, 05/22/2012 DEPRESSION SCREENING 05/22/2024 MEDICARE AWV CALENDAR YEAR 2024 Respiratory Syncytial Virus (RSV) Vaccine Pt: or over 60 yrs (1 - 1-dose 75+ series) 2024 HEPATITIS B VACCINE Aged Out No longe r eligible based on patient's age to complete this topic HIB VACCINE Aged Out No longer eligi ble based on patient's age to complete this topic HPV VACCINE Aged Out No longer eligi ble based on patient's age to complete this topic MENINGOCOCCAL (Group B) VACCINE Aged Out No longer eligible b ased on patient's age to complete this topic MENINGOCOCCAL VACCINE Aged Out No gera riya eligible based on patient's age to complete this topic Care Teams Manager Of Finance Relationship Specialty Start Date End Date Artur Henning DO [address] [place] [address] PCP - General Internal Medicine 03/16/20
--- OUTSIDE RECORDS SUMMARY | 2024-07-01 09:16 | XMS_ITS | Referral Summary ---
Author Organization [facility] Address [address] [place] [address] Care Team Providers Care Supervisor Chemical Name Role Phone Artur Henning DO Primary Care Provider Source Comments [facility],non-owned Affiliates and Associated Physician Practices is amultiple site organization consisting of ambulatory clinics and hospital sitesin [place], [place], [place] and [place]. This disclosure is being madepursuant to the Care Everywhere program and may not contain all information available regarding this patient. Last updated 18.[facility] [address] Allergies No known active allergies Immunizations Name Administration Dates Next Due INFLUENZA VACCINE, HIGH-DOSE , QUADR. (FLUZONE HIGH-DOSE QUADRIVALENT; 65Y+), 0.7 ML (HD-IIV4) 03/16/2020 Social History Tobacco Use Types Packs/Day Years Used Date Smoking Tobacco: Never Assessed Sex and Gender Information Value Date Recorded Sex Assigned at Not on file Gender Identity Not on file Sexual Orientation Not on file Plan of Treatment Not on file Care Teams Supervisor Chemical Relationship Specialty Start Date End Date Artur Henning DO [address] [place] [address] PCP - General Internal Medicine 03/16/20
--- OUTSIDE RECORDS SUMMARY | 2024-07-01 09:16 | XMS_ITS | Patient Health Summary ---
Author Organization [facility] Address [address] [place] [address] Care Team Providers Care Stage Manager Name Role Phone Artur Henning DO Primary Care Provider Note from [facility],non-owned Affiliates and Associated Physician Practices is amultiple site organization consisting of ambulatory clinics and hospital sitesin [place], [place], [place] and [place]. This disclosure is being madepursuant to the Care Everywhere program and may not contain all information available regarding this patient. Last updated 18.[facility] Allergies No known active allergies Immunizations * INFLUENZA VACCINE, HIGH-DOSE, QUADR. (FLUZONE HIGH-DOSE QUADRIVALENT; 65Y+), 0.7 ML (HD-IIV4)(Given 03/16/2020) Social History Tobacco Use Types Packs/Day Years Used Date Smoking Tobacco: Never Assessed Sex and Gender Information Value Date Recorded Sex Assigned at Not on file Gender Identity Not on file Sexual Orientation Not on file Care Teams Stage Manager Relationship Specialty Start Date End Date Atrur Henning DO [address] [address] PCP - General Internal Medicine 03/16/20
--- OUTSIDE RECORDS SUMMARY | 2024-07-01 09:16 | XMS_ITS | Continuity of Care Document ---
Author Organization [facility] Address [address] [place] [address] [address] [place] [address] Phone Care Team Providers Care Export Freight Clerk Name Role Phone Mayi Dorado Unavailable Unavailable Procedures Procedure Date Eye Exam, New Patient Eye Exam, New Patient Advance Directives Directive Yes / No Effective Date File Name No Information Encounters Encounter Description Practice Location Reason(s) For Visit Diagnoses Date Provider Providers Copied on Encounter [facility], [address] [place] [address] [address], [place], [place], [id number], tel:[phone] [facility] No Information Sep-[address] [facility] [place] , [address], [place], [address], [place]. tel:[phone] [facility], [address] [place] [address] [address], [place], [place], [id number], tel:[phone] [facility] [place] No Information [address] [facility] , [address], [place], [address], [place]. tel:[phone] Referring Provider: Fan Dougherty MD , [address], [place], [address]. tel:[phone] Family History Family Member Type Diagnosis Age At Onset No Information Payers Payer name Insurance type Covered libertarian ID Authoriza tion(s) No Information Social History Type Description Quantity Date Captured Comments Sex Female Smoking Status No Information Chief Complaint And Reason For Visit No Information Reason For Referral Reason For Referral No Information History Of Present Illness Encounter Date Complaint History Of Prese nt Illness No Information Functional Status Date Functional Assessmen t No Information Instructions Date Instruction Additional Infor mation No Information Assessments Type Assessment Date No Information Patient Care Teams Name Effective Dates (start - stop) Status Members No Information
--- OUTSIDE RECORDS SUMMARY | 2024-07-01 09:16 | XMS_ITS | Clinical Summary ---
Author Organization [facility] Address [address] [place] [address] Care Team Providers Care Batch Blender Name Role Phone Tommy Gee MD Primary Care Provider [phone] Allergies Active Allergy Reactions Criticality Noted Date Comments Adhesive Tape-Silicones Unknown 07/12/2023 Surgery tape Medications metFORMIN (GLUCOPHAGE) 1,000 mg tablet Take 1,000 mg by mouth 2 times daily with meals. Active amLODIPine (NORVASC) 10 mg tablet Take 10 mg by mouth daily. Active atorvastatin (LIPITOR) 20 mg tablet Take 20 mg by mouth daily. Active nadoloL (CORGARD) 20 mg tablet Take 20 mg by mouth daily. Active ferrous sulfate 325 mg (65 mg iron) tablet Take 325 mg by mouth daily. Active mirabegron (Myrbetriq) 25 mg Extended Release 24 hour tablet Take 25 mg by mouth daily. Active tirzepatide (Mounjaro) 10 mg/0.5 mL Pen Injector Inject by subcutaneous injection. Active ergocalciferol (VITAMIN D2) 50,000 unit capsule Take 50,000 Units by mouth. Active cyanocobalamin 1,000 mcg Tablet Take 500 mcg by mouth daily. Active levothyroxine 25 mcg tablet Take 25 mcg by mouth daily. Active Active Problems Problem Noted Date Diagnosed Date Stage 3a chronic kidney disease 03/18/2024 Encounters Date Type Department Care Team Description 06/24/2024 Orders Only [facility] Oncology and Hematology - [place] [address] [place] [id number] 06/18/2024 Orders Only [facility] Oncology and Hematology - [place] [address] [place] [address] Sonu Davis MD 06/13/2024 External Device Data STL ABSTRACTION Provider, Abstract 06/12/2024 External Device Data [facility] ABSTRACTION Provider, Abstract 06/11/2024 External Device Data ST[facility] ABSTRACTION Provider, Abstract 06/10/2024 Orders Only [facility] Oncology and Hematology - [place] [address] [place] [address] 06/04/2024 External Device Data STL ABSTRACTION Provider, Abstract 05/27/2024 Orders Only [facility]ematology - [place] [address] [place] [address] 05/13/2024 Orders Only [facility]ology - [place] [address] [place] [address] 05/01/2024 Orders Only [facility]ology - [place] [address] [place] [address] Sonu Davis MD 04/30/2024 Orders Only [facility] - [place] [address] [place] [address] Sonu Davis MD 04/29/2024 9:00 AM RETREAD TECHNICIAN Office Visit [facility] - [place] [address] [place] [address] Sonu Davis MD Anemia of chronic renal failure, unspecified CKD stage (Primary Dx) 04/29/2024 Orders Only [facility]ology - [place] [address] [place] [address] 04/23/2024 Orders Only [facility] - [place] [address] [place] [address] Sonu Davis MD 04/16/2024 Orders Only [facility] - [place] [address] [place] [address] Sonu Davis MD 04/15/2024 Orders Only [facility] Oncology and Hematology - [place] [address] [place] [address] 04/01/2024 Orders Only [facility] Oncology and Hematology - [place] [address] [place] [address] from Last 3 Months Family History Medical History Relation Name Comments Lung Cancer Father Cervical Cancer Sister 1 Lung Cancer Sister 1 Heart Disease Son 1 Relation Name Status Comments Daughter 1 Alive Daughter 2 Alive Father Mother Sister 1 Alive Sister 2 Alive Son 1 Son 2 Alive Social History Tobacco Use Types Packs/Day Years Used Date Smoking Tobacco: Former Cigarettes 1 55 1 962 - 2017 Smokeless Tobacco: Never Tobacco Cessation:Counseling Given: Not Answered Alcohol Use Standard Drinks/Week Comments Never 0 (1 standard drink = 0.6 oz pur e alcohol) Comments Unknown Sex and Gender Information Value Date Recorded Sex Assigned at Not on file Legal Sex Female 10:45 PM CDT Gender Identity Not on file Sexual Orientation Not on file Last Filed Vital Signs Vital Sign Reading Time Taken Comments Blood Pressure 120/78 04/29/2024 8:48 AM RETREAD TECHNICIAN Pulse 88 04/29/2024 8:48 AM RETREAD TECHNICIAN Temperature 36.6 C (97.8 F) 04/29/2024 8:48 AM RETREAD TECHNICIAN Respiratory Rate 16 04/29/2024 8:48 AM RETREAD TECHNICIAN Oxygen Saturation 93% 04/29/2024 8:48 AM RETREAD TECHNICIAN Inhaled Oxygen Concentration - - Weight 103 kg (227 lb) 04/29/2024 8:48 AM RETREAD TECHNICIAN Height 167.6 cm (5' 6 ) 07/12/2023 11:22 AM RETREAD TECHNICIAN Body Mass Index 36.64 07/12/2023 11:22 AM RETREAD TECHNICIAN Plan of Treatment Upcoming Encounters Date Type Department Care Team (Late st Contact Info) Description 07/29/2024 9:45 AM CDT Office Visit [facility] Oncology and Hematology - [place] [address] [place] [address] Sonu Davis MD [address] [place] [address] Health Maintenance Due Date Last Done Comments DIABETES ANNUAL FOOT EXAM 1967 DIABETES MICROALBUMIN ANNUAL SCREEN 1967 LDL CHOLESTEROL ANNUAL 1967 DTAP/TDAP/TD VACCINES (1 - Tdap) 1968 FIT-DNA Q 3 years 1994 FIT/FOBT Q 1 year 1994 Flex Sig/CT Colonography Q 5 years 1994 ZOSTER VACCINE (1 of 2) 1999 PNEUMOCOCCAL VACCINE 65+ YEA RS (2 of 2 - PCV) 05/22/2014 05/22/2013 DIABETES ANNUAL RETINAL EXAM 09/13/2015 09/12/2014 DIABETES HBA1C Q 6 MONTHS 06/09/2016 12/08/2015 COLORECTAL SCREENING 09/14/2022 09/14/2012 Colorectal Cancer Screening 09/14/2022 INFLUENZA VACCINE (#1) 2023 0, 03/25/2015, 05/22/2012 COVID-19 Vaccine ( season) 2024, 07/24/2020 [place] Prev entative Visit/Annual Wellness Visit 05/22/2024 RSV VACCINE (60+ or ) (1 - 1-dose 75+ series) 2024 OSTEOPOROSIS SCREENING Completed 1, 12/17/2010, 12/17/2010 Procedures Procedure Name Priority Date/Time Associated Diagnosis Comments CBC WITH AUTODIFFERENTIAL Routine 2024 1:29 PM RETREAD TECHNICIAN CBC WITH DIFFERENTIAL Routine 04/29/2024 3:44 PM RETREAD TECHNICIAN BASIC METABOLIC PANEL Routine 04/29/2024 12:52 PM RETREAD TECHNICIAN BASIC METABOLIC PANEL Routine 04/23/2024 4:12 PM RETREAD TECHNICIAN CBC WITH DIFFERENTIAL Routine 04/23/2024 2:33 PM RETREAD TECHNICIAN CBC WITH DIFFERENTIAL Routine 04/15/2024 10:51 AM RETREAD TECHNICIAN CBC WITH DIFFERENTIAL Routine 04/01/2024 1:10 PM RETREAD TECHNICIAN from Last 3 Months Results * CBC WITH AUTODIFFERENTIAL (06/13/2024 1:29 PM RETREAD TECHNICIAN) Blood us Sonu Davis MD HEMATOLOGY ORDERABLES Final Res ult * CBC WITH DIFFERENTIAL (04/29/2024 3:44 PM RETREAD TECHNICIAN) Only the most recent of4 resultswithin the time period is included. Blood us Sonu Davis MD HEMATOLOGY ORDERABLES Final Res ult * BASIC METABOLIC PANEL (04/29/2024 12:52 PM RETREAD TECHNICIAN) Only the most recent of2 resultswithin the time period is included. Blood us Sonu Davis MD CHEMISTRY ORDERABLES Final Resu lt from Last 3 Months Insurance Care Teams Batch Blender Relationship Specialty Start Date End Date Tommy Gee MD [address] [place] [address] PCP - General Family Practice 07/11/23
--- OUTSIDE RECORDS SUMMARY | 2024-07-01 09:16 | XMS_ITS | Clinical Summary ---
Author Organization [facility] Address [address] [address] Phone Care Team Providers Care Landscaper Name Role Phone María Aranda DO Unavailable [phone] Christian Jaimes DO Unavailable [phone] Artur Henning DO Primary Care Provider [phone] Allergies Active Allergy Reactions Criticality Noted Date Comments Adhesive Tape Unknown Surgery tape Medications ASPIRIN PO Active glimepiride (AMARYL) 2 MG Tablet TAKE 1 TABLET BY MOUTH EVERY MORNING 30 Tab 11 10/22/2015 Active pioglitazone (ACTOS) 30 MG Tablet TAKE 1 TABLET BY MOUTH EVERY MORNING 90 Tab 3 10/26/2015 Active metFORMIN (GLUCOPHAGE) 850 MG Tablet TAKE 1 TABLET BY MOUTH TWICE DAILY 180 Tab 3 12/04/2015 Active Alcohol Swabs (ALCOHOL PREP) 70 % Pads 12/04/2015 Active Blood Glucose Calibration (ACCU-CHEK KAITLIN) Solution 12/04/2015 Act cora Blood Glucose Monitoring Suppl (ACCU-CHEK KAITLIN PLUS) W/DEVICE Kit 09/23/2015 Active ACCU-CHEK KAITLIN PLUS Strip 12/04/2015 Active Lancet Devices (ADJUSTABLE LANCING DEVICE) Misc 09/23/2015 Active ASSURE COMFORT LANCETS 30G Misc 12/04/2015 Ac tive amLODIPine (NORVASC) 5 MG Tablet TAKE 1 TABLET BY MOUTH EVERY DAY 90 Tab 1 05/09/2016 Active venlafaxine (EFFEXOR-XR) 150 MG CAPSULE SR 24 HR Take 1 Cap by mouth daily. 90 Cap 0 08/09/2016 Active losartan-hydroch lorothiazide (HYZAAR) 100-12.5 MG Tablet TAKE 1 TABLET BY MOUTH EVERY DAY 90 Tab 1 09/05/2016 Active Active Problems Problem Noted Date Diagnosed Date Hyperlipidemia 12/08/2015 DM2 (diabetes mellitus, type 2) HTN (hypertension) Depression Immunizations Immunization Administration Dates Next Due Covid-19, Mrna, Lnp-s, Pf, 30 Mcg/0.3 Ml Dose (P fizer) 08/14/2020,07/24/2020 Influenza Vaccine greater than 3 yrs 05/22/2012 Influenza, high-dose, trivalent, PF 03/25/2015 Pneumococcal Vaccine Adult - 23 Valent 4 Family History Medical History Relation Name Comments Cancer Father Liver Disease Mother Diabetes Sister Hepatitis Sister Relation Name Status Comments Father Mother Sister Alive Social History Tobacco Use Types Packs/Day Years Used Date Smoking Tobacco: Every Day Cigarettes Smokeless Tobacco: Never Tobacco Cessation:Ready to Q uit: Yes; Counseling Given: Yes Alcohol Use Standard Drinks/Week Comments No 0 (1 standard drink = 0.6 oz pur e alcohol) Comments No Sex and Gender Information Value Date Recorded Sex Assigned at Not on file Legal Sex Female 10:26 PM CDT Gender Identity Not on file Sexual Orientation Not on file Last Filed Vital Signs Vital Sign Reading Time Taken Comments Blood Pressure 134/78 12/09/2015 12:53 PM CDT Pulse 108 12/09/2015 12:53 PM CDT Temperature 36.7 C (98 F) 12/09/2015 12:53 PM CDT Respiratory Rate 20 12/09/2015 12:53 PM CDT Oxygen Saturation 98% 12/09/2015 12:53 PM CDT Inhaled Oxygen Concentration - - Weight 115.7 kg (255 lb) 12/09/2015 12:53 PM CDT Height 167.6 cm (5' 6 ) 12/09/2015 12:53 PM CDT Body Mass Index 41.16 12/09/2015 12:53 PM CDT Plan of Treatment Health Maintenance Due Date Last Done Comments Diabetes: Foot Exam 1950 Hepatitis C Virus (HCV) Screening 1950 TdaP Immunization 1950 Cologuard 1999 Immunochemical Fecal Occult Blood 1999 Zoster Immunization (1 of 2) 1999 DEXA Bone Density 12/17/2012 12/17/2010, , 12/17/2008, Additional history exists Diabetes: Eye Exam 09/13/2015 09/12/2014 Diabetes: Hemoglobin A1c 06/09/2016 016, 06/09/2015, 01/03/2013, Additional history exists Diabetes: Nephropathy Screening 12/07/2016 12/08/2015, 06/09/2015, 01/03/2013, Additional history exists Colonoscopy 09/14/2022 09/14/2012 Colorectal Cancer Screening 09/14/2022 Influenza Immunization (#1) 01/21/202402/20, 07/30/2018, 05/29/2017, Additional history exists SARS-COV-2 Immunization ( season) 2024 04/12/2021, 08/14/2020, 07/24/2020 Respiratory Syncytial Virus (RSV) Immunization (Adult) (1 - 1-dose 75+ series) 2024 09/14/2012 Mammogram Discontinued 03/07/2016, 08/21, 12/17/2010, Additional history exists Pneumococcal Immunization (50+ years) Completed 07/30/2018, 05/29/2017, 05/22/2013 Pneumococcal Immunization Combined Discontinued 07/30/2018, 05/29/2017, 05/22/2013 Hepatitis B Immunization Aged Out No longer eligible based on patient's age to complete this topic Meningococcal Immunization (ACWY) Aged Out No longer eligible based on patient's age to complete this topic Rotavirus Immunization Aged Out No lo nger eligible based on patient's age to complete this topic Procedures Procedure Name Priority Date/Time Associated Diagnosis Comments TRACY DIAG BILATERAL DIGITAL W CAD Routine 03/07/2016 2:09 PM CDT Breast mass in female CMP (COMPREHENSIVE METABOLIC PANEL) Today 12/08/2015 10:40 AM CDT Essential hypertension Type 2 diabetes mellitus without complication, without long-term current use of insulin HEMOGLOBIN A1C W/ ESTIMATED GLUCOSE Routine 12/08/2015 10:40 AM CDT Type 2 diabetes mellitus without complication, without long-term current use of insulin HM DILATED EYE EXAM Routine 09/12/2014 HM COLONOSCOPY Routine 09/14/2012 [facility] BONE DENSITOMETRY AXIAL SKELETON Routine 12/17/2010 from Last 3 Months or Most Recently Relevant to Health Maintenance Results * TRACY DIAG BILATERAL DIGITAL W CAD (03/07/2016 2:09 PM CDT) Anatomical Region Laterality Modality breast Bilateral Mammography 03/07/2016 1:06 PM CDT Narrative 03/08/2016 7:23 AM CDT - TRACY DIAG BILATERAL DIGITAL W CAD BILATERAL DIGITAL DIAGNOSTIC MAMMOGRAM WITH CAD WITH LATEROMEDIAL MEDIOLATERAL OBLIQUE CRANIOCAUDAL: 03/07/2016 The study was acquired using digital technology and interpreted from soft copy. Current study was also evaluated with [employer] version 7.2. CLINICAL: Diagnostic study. 65-year-old woman presents for evaluation of focal pain in the medial left breast, first noted in September 2015 with an associated lump that has since resolved, and annual mammography of the right breast. No personal history of cancer. No family history of breast cancer. COMPARISONS: Comparison is made to exams dated: 09/12/2014 and 12/17/2010 [facility]. BREAST TISSUE: The tissue of both breasts is predominantly fatty. MAMMOGRAPHIC FINDINGS: A radiopaque marker was placed over the site of pain in the medial left breast. There is no mammographic abnormality at this site. Targeted ultrasound will be performed. No significant masses, calcifications, or other findings are seen in either breast. There has been no significant interval change. ULTRASOUND FINDINGS: Targeted left breast ultrasound at the site of focal pain and previously palpable lump at 10 o'clock 13 cm from the nipple demonstrated normal-appearing tissue. IMPRESSION: BI-RAD 1 NEGATIVE No evidence of malignancy. No mammographic or sonographic abnormality at the site of pain in the medial left breast. Base any further evaluation on clinical examination. The patient was notified of the results. A 1 year screening mammogram is recommended. Yury Sales M.D. nh/:03/07/2016 14:50:43 Plastic Printer: Tameka España(R), [facility] letter sent: Normal Exam Reading location: [facility] BI-RADS: 1 Negative Procedure Note Yury Sales MD - 03/08/2016 - TRACY DIAG BILATERAL DIGITAL W CAD BILATERAL DIGITAL DIAGNOSTIC MAMMOGRAM WITH CAD WITH LATEROMEDIAL MEDIOLATERAL OBLIQUE CRANIOCAUDAL: 03/07/2016 The study was acquired using digital technology and interpreted from soft copy. Current study was also evaluated with [employer] version 7.2. CLINICAL: Diagnostic study. 65-year-old woman presents for evaluation of focal pain in the medial left breast, first noted in September 2015 with an associated lump that has since resolved, and annual mammography of the right breast. No personal history of cancer. No family history of breast cancer. COMPARISONS: Comparison is made to exams dated: 09/12/2014 and 12/17/2010 [facility]. BREAST TISSUE: The tissue of both breasts is predominantly fatty. MAMMOGRAPHIC FINDINGS: A radiopaque marker was placed over the site of pain in the medial left breast. There is no mammographic abnormality at this site. Targeted ultrasound will be performed. No significant masses, calcifications, or other findings are seen in either breast. There has been no significant interval change. ULTRASOUND FINDINGS: Targeted left breast ultrasound at the site of focal pain and previously palpable lump at 10 o'clock 13 cm from the nipple demonstrated normal-appearing tissue. IMPRESSION: BI-RAD 1 NEGATIVE No evidence of malignancy. No mammographic or sonographic abnormality at the site of pain in the medial left breast. Base any further evaluation on clinical examination. The patient was notified of the results. A 1 year screening mammogram is recommended. Yury Sales M.D. nh/:03/07/2016 14:50:43 Plastic Printer: Tameka España(Kash), [facility] letter sent: Normal Exam Reading location: [facility] BI-RADS: 1 Negative us Mauricio Holm MD IMG MAMMO ORDERABLES Noreen l Result * (ABNORMAL) HEMOGLOBIN A1C W/ ESTIMATED GLUCOSE (12/08/2015 10:40 AM CDT) HGB-A1C 6.6(H) 4.4 - 6.4 % 12/08/2015 3:28 PM CDT [facility] Est Average Glucose 142.7 mg/dL 12/08/2015 3:28 PM CDT [facility] Blood specimen (specimen) Venipuncture / Unknown 12/08/2015 10:40 AM CDT 12/08/2015 10:40 AM CDT Narrative [facility] - 12/08/2015 3:28 PM CDT HEMOGLOBIN A1C: DIABETIC PATIENTS: WELL-CONTROLLED: 6.2 - 7.0 INTERMEDIATE WELL-CONTROLLED: 7.0 - 9.0 POORLY-CONTROLLED: >9.0 us Mauricio Holm MD CHEMISTRY ORDERABLES Noreen neal Result [facility] [address] [place] [address] * (ABNORMAL) CMP (COMPREHENSIVE METABOLIC PANEL) (12/08/2015 10:40 AM CDT) SODIUM 137 131 - 143 mmol/L 12/08/2015 3:47 PM CDT [facility] POTASSIUM 3.7 3.5 - 5.1 mmol/L 12/08/2015 3:47 PM CDT [facility] CHLORIDE 102 100 - 110 mmol/L 12/08/2015 3:47 PM CDT [facility] CO2, VENOUS 25 22 - 32 mmol/L 12/08/2015 3:47 PM CDT [facility] ANION GAP 13.7 8.0 - 20.0 mmol/L 12/08/2015 3:47 PM CDT [facility] GLUCOSE 144(H) 70 - 105 mg/dL 12/08/2015 3:47 PM CDT [facility] BUN 12 10 - 31 mg/dL 12/08/2015 3:47 PM CDT [facility] CREATININE, BLOOD 0.58(L) 0.60 - 1.30 mg/dL 12/08/2015 3:47 PM CDT [facility] BUN/CREATININE RATIO 21(H) 12 - 20 ratio 12/08/2015 3:47 PM CDT [facility] TOTAL PROTEIN 7.2 6.0 - 8.3 g/dL 12/08/2015 3:47 PM CDT [facility] ALBUMIN 3.8 3.5 - 5.2 g/dL 12/08/2015 3:47 PM CDT [facility] A/G RATIO 1.1 1.0 - 2.0 12/08/2015 3:47 PM CDT [facility] CALCIUM 9.4 8.9 - 10.3 mg/dL 12/08/2015 3:47 PM CDT [facility] T BILI 0.4 0.3 - 1.2 mg/dL 12/08/2015 3:47 PM CDT [facility] SGOT (AST) 40(H) 1 - 32 U/L 12/08/2015 3:47 PM CDT [facility] SGPT (ALT) 23 1 - 33 U/L 12/08/2015 3:47 PM CDT [facility] ALKALINE PHOSPHATASE 106(H) 35 - 105 U/L 12/08/2015 3:47 PM CDT [facility] GFR, EST. NONAFRICAN >60 >=60 12/08/2015 3:47 PM CDT [facility] GFR, EST. >60 >=60 12/08/2015 3:47 PM CDT [facility] Comment: Creatinine Clearance is the preferred criteria for selecting drug dose adjustments in renally impaired patients. The GFR is provided as additional pertinent clinical information. GFR is reported in mL/min/1.73 sq m. Blood specimen (specimen) Venipuncture / Unknown 12/08/2015 10:40 AM CDT 12/08/2015 10:40 AM CDT us Mauricio Holm MD CHEMISTRY ORDERABLES Noreen l Result [facility] [address] [facility] [place] [address] * DILATED EYE EXAM (09/12/2014) us Unknown Provider PROCEDURE/MINOR SURGICAL ORDERA BLES Final Result * COLONOSCOPY (09/14/2012) us Fan Dougherty MD PROCEDURE/MINOR SURGICAL ORDER SAMUEL Final Result * [facility] BONE DENSITOMETRY AXIAL SKELETON (12/17/2010) Anatomical Region Laterality Modality BODY N/A Other us Fan Dougherty MD IMG DEXA ORDERABLES Final Resu lt from Last 3 Months or Most Recently Relevant to Health Maintenance Insurance MEDICAID [place] MEDICARE C [employer] on file Care Teams Landscaper Relationship Specialty Start Date End Date Artur Henning DO [address] [facility] [address] [place] [address] PCP - General Internal Medicine 10/08/20 María Aranda DO [address], [place] [address] Hospitalist Internal Medicine 01/13/17 Christian Jaimes DO [address] [place] [address] Consulting Physician Gastroenterology 01/13/17
[2024-07-01 10:28] LABS: Albumin Level 3.8 g/dL (3.5-5.1); Anion Gap 13 mmol/L (4-12); Blood Urea Nitrogen 25 mg/dL (7-17); Calcium 9.7 mg/dL (8.4-10.2); Carbon Dioxide 24 mmol/L (22-30); Chloride 101 mmol/L (98-107); Estimated Glomerular Filt Rate 50; Glucose 239 mg/dL (65-110); Magnesium 1.1 mg/dL (1.6-2.3); Phosphorus 3.4 mg/dL (2.5-4.5); Potassium 4.3 mmol/L (3.4-5.0); Sodium 138 mmol/L (137-145)
[2024-07-01 10:37] LABS: Parathyroid Intact 18.4 pg/mL (14.5-75.2)
[2024-07-01 10:41] LABS: Creatinine Urine 91.3 mg/dL; Total Protein Urine Random 6 mg/dL; Ur Ttl Prot Creatinine Ratio 0.07 mg/mg (0-0.20)
[2024-07-01 10:42] LABS: Vitamin D 25 Hydroxy 80.1 ng/mL
== END 2024-07-01 08:53 | disposition home or self-care (01) ==
LOC: ANHLAB 08:56
PROVIDERS: PCP Nurse Practitioner Family; Referring Provider Family Medicine; Visit Provider Internal Medicine Nephrology
DX: I12.9 Hypertensive chronic kidney disease with stage 1 through stage 4 chronic kidney disease, or unspecified chronic kidney disease (principal); E11.22 Type 2 diabetes mellitus with diabetic chronic kidney disease; N18.32 Chronic kidney disease, stage 3b; N25.81 Secondary hyperparathyroidism of renal origin; E55.9 Vitamin D deficiency, unspecified
CPT/HCPCS: 36415; 80069; 82306; 82570; 83735; 83970; 84156

== ENCOUNTER 2024-09-02 09:51 | Outpatient (CLI) | payer MEDICARE, MEDICAID, SELFPAY ==
--- OUTSIDE RECORDS SUMMARY | 2024-09-02 10:46 | XMS_ITS | Encounter Summary ---
Author Organization [facility] [employer] [facility] Address [address] [place] [address] Care Team Providers Care District Sales Leader Name Role Phone Tommy Gee MD Primary Care Provider [phone] Encounter Details Date Type Department Care Team (Late Contact Info) Description 09/02/2024 Orders Only [facility] Oncology and Hematology - [place] [address] [place] [address] Social History Tobacco Use Types Packs/Day Years Used Date Smoking Tobacco: Former Cigarettes 1 55 1 962 - 2017 Smokeless Tobacco: Never Alcohol Use Standard Drinks/Week Comments Never 0 (1 standard drink = 0.6 oz pur e alcohol) Comments Unknown Sex and Gender Information Value Date Recorded Sex Assigned at Not on file Legal Sex Female 10:45 PM CDT Gender Identity Not on file Sexual Orientation Not on file documented as of this encounter Plan of Treatment Upcoming Encounters Date Type Department Care Team (Late Contact Info) Description 02/03/2025 9:45 AM CDT Office Visit [facility] Oncology and Hematology - [place] [address] [place] [address] Sonu Davis MD [address] [facility] [address] [place] [address] documented as of this encounter Visit Diagnoses Not on filedocumented in this encounter Care Teams District Sales Leader Relationship Specialty Start Date End Date Tommy Gee MD [address] [place] [address] PCP - General Family Practice 07/11/23 documented as of this encounter
--- OUTSIDE RECORDS SUMMARY | 2024-09-02 10:46 | XMS_ITS | Clinical Summary ---
Author Organization [facility] Address [address] [address] Phone Care Team Providers Care Senior Consultant Name Role Phone María Aranda DO Unavailable [phone] Christian Jaimes DO Unavailable [phone] Artur Henning DO Primary Care Provider [phone] Allergies Active Allergy Reactions Criticality Noted Date [...] 1999 Zoster Immunization (1 of 2) 1999 Diabetes: Eye Exam 09/13/2015 09/12/2014 Diabetes: Hemoglobin A1c 06/09/2016 016, 06/09/2015, 01/03/2013, Additional history exists Diabetes: Nephropathy Screening 12/07/2016 12/08/2015, 06/09/2015, 01/03/2013, Additional history exists Colonoscopy 09/14/2022 09/14/2012 Colorectal Cancer Screening 09/14/2022 Influenza Immunization (#1) 01/21/202402/20, 07/30/2018, 05/29/2017, Additional history exists SARS-COV-2 Immunization ( season) 2024 04/12/2021, 08/14/2020, 07/24/2020 Respiratory Syncytial Virus (RSV) Immunization (Adult) (1 - 1-dose 75+ series) 2024 09/14/2012 DEXA Bone Density Discontinued 12/17/2010, , 12/17/2008, Additional history exists Mammogram Discontinued 03/07/2016, 08/21, 12/17/2010, Additional history [...] EXAM Routine 09/12/2014 HM COLONOSCOPY Routine 09/14/2012 [facility] BONE DENSITOMETRY AXIAL SKELETON Routine 12/17/2010 from [...] copy. Current study was also evaluated with [employer] version 7.2. CLINICAL: Diagnostic study. 65-year-old woman presents for evaluation of focal pain in the medial left breast, first noted in September 2015 with an associated lump that has since resolved, and annual mammography of the right breast. No personal history of cancer. No family history of breast cancer. COMPARISONS: Comparison is made to exams dated: 09/12/2014 and 12/17/2010 [facility]. BREAST TISSUE: The tissue of both breasts [...] is recommended. Yury Sales M.D. nh/:03/07/2016 14:50:43 Importer Or Exporter: Tameka España(R), [facility] letter sent: Normal Exam Reading location: [facility] BI-RADS: 1 Negative Procedure Note Yury [...] made to exams dated: 09/12/2014 and 12/17/2010 [facility]. BREAST TISSUE: The tissue of both breasts [...] screening mammogram is recommended. Yury Sales M.D. ut/:03/07/2016 14:50:43 Importer Or Exporter: Tameka España(Kash), [facility] letter sent: Normal Exam Reading location: [facility] BI-RADS: 1 Negative us Mauricio Holm MD IMG MAMMO ORDERABLES Noreen l Result * (ABNORMAL) HEMOGLOBIN A1C W/ ESTIMATED GLUCOSE (12/08/2015 10:40 AM CDT) HGB-A1C 6.6(H) 4.4 - 6.4 % 12/08/2015 3:28 PM CDT [facility] Est Average Glucose 142.7 mg/dL 12/08/2015 3:28 PM CDT [facility] Blood specimen (specimen) Venipuncture / Unknown 12/08/2015 10:40 AM CDT 12/08/2015 10:40 AM CDT Narrative [facility] - 12/08/2015 3:28 PM CDT HEMOGLOBIN A1C: DIABETIC PATIENTS: WELL-CONTROLLED: 6.2 - 7.0 INTERMEDIATE WELL-CONTROLLED: 7.0 - 9.0 POORLY-CONTROLLED: >9.0 us Mauricio Holm MD CHEMISTRY ORDERABLES Noreen neal Result [facility] [address] [place] [address] * (ABNORMAL) CMP (COMPREHENSIVE METABOLIC PANEL) (12/08/2015 10:40 AM CDT) SODIUM 137 131 - 143 mmol/L 12/08/2015 3:47 PM CDT [facility] POTASSIUM 3.7 3.5 - 5.1 mmol/L 12/08/2015 3:47 PM CDT [facility] CHLORIDE 102 100 - 110 mmol/L 12/08/2015 3:47 PM CDT [facility] CO2, VENOUS 25 22 - 32 mmol/L 12/08/2015 3:47 PM CDT [facility] ANION GAP 13.7 8.0 - 20.0 mmol/L 12/08/2015 3:47 PM CDT [facility] GLUCOSE 144(H) 70 - 105 mg/dL 12/08/2015 3:47 PM CDT [facility] BUN 12 10 - 31 mg/dL 12/08/2015 3:47 PM CDT [facility] CREATININE, BLOOD 0.58(L) 0.60 - 1.30 mg/dL 12/08/2015 3:47 PM CDT [facility] BUN/CREATININE RATIO 21(H) 12 - 20 ratio 12/08/2015 3:47 PM CDT [facility] TOTAL PROTEIN 7.2 6.0 - 8.3 g/dL 12/08/2015 3:47 PM CDT [facility] ALBUMIN 3.8 3.5 - 5.2 g/dL 12/08/2015 3:47 PM CDT [facility] A/G RATIO 1.1 1.0 - 2.0 12/08/2015 3:47 PM CDT [facility] CALCIUM 9.4 8.9 - 10.3 mg/dL 12/08/2015 3:47 PM CDT [facility] T BILI 0.4 0.3 - 1.2 mg/dL 12/08/2015 3:47 PM CDT [facility] SGOT (AST) 40(H) 1 - 32 U/L 12/08/2015 3:47 PM CDT [facility] SGPT (ALT) 23 1 - 33 U/L 12/08/2015 3:47 PM CDT [facility] ALKALINE PHOSPHATASE 106(H) 35 - 105 U/L 12/08/2015 3:47 PM CDT [facility] GFR, EST. NONAFRICAN >60 >=60 12/08/2015 3:47 PM CDT [facility] GFR, EST. >60 >=60 12/08/2015 3:47 PM CDT [facility] Comment: Creatinine Clearance is the preferred criteria for selecting drug dose adjustments in renally impaired patients. The GFR is provided as additional pertinent clinical information. GFR is reported in mL/min/1.73 sq m. Blood specimen (specimen) Venipuncture / Unknown 12/08/2015 10:40 AM CDT 12/08/2015 10:40 AM CDT us Mauricio Holm MD CHEMISTRY ORDERABLES Noreen l Result [facility] [address] [place] [address] * DILATED EYE EXAM (09/12/2014) us Unknown Provider PROCEDURE/MINOR SURGICAL ORDERA BLES Final Result * COLONOSCOPY (09/14/2012) Fan Dougherty MD PROCEDURE/MINOR SURGICAL ORDER SAMUEL Final Result * [facility] BONE DENSITOMETRY AXIAL SKELETON (12/17/2010) Anatomical Region Laterality Modality BODY N/A Other us Fan Dougherty MD IMG DEXA ORDERABLES Final Resu lt from Last 3 Months or Most Recently Relevant to Health Maintenance Insurance MEDICAID [place] MEDICARE C [employer] on file Care Teams Senior Consultant Relationship Specialty Start Date End Date Artur Henning DO [address] [facility] [address] [place] [address] PCP - General Internal Medicine 10/08/20 María Aranda DO [address] [place] [id number] Hospitalist Internal Medicine 01/13/17 Christian Jaimes DO [address] [place] [address] Consulting Physician Gastroenterology 01/13/17
--- OUTSIDE RECORDS SUMMARY | 2024-09-02 10:46 | XMS_ITS | Clinical Summary ---
Author Organization [facility] Carlos A Moon Address [address] [place] [address] Care Team Providers Care Resource Agent Name Role Phone Tommy Gee MD Primary Care Provider [phone] Allergies Active Allergy Reactions Criticality Noted Date [...] Take 25 mg by mouth daily. Active ergocalciferol (VITAMIN D2) 50,000 unit capsule Take 50,000 Units by mouth. Active cyanocobalamin 1,000 mcg Tablet Take 500 mcg by mouth daily. Active levothyroxine 25 mcg tablet Take 25 mcg by mouth daily. 4 Active magnesium oxide (MAG-OX) 400 mg (241.3 mg magnesium) tablet Take 1 Tablet by mouth 2 times daily. 5 Active Mounjaro 12.5 mg/0.5 mL Pen Injector Inject 12.5 mg by subcutaneous injection every 7 days. 5 Active Active Problems Problem Noted Date Diagnosed Date Stage 3a chronic kidney disease 03/18/2024 Encounters Date Type Department Care Team Description 09/02/2024 Orders Only [facility] Oncology and Hematology - [place] [address] [place] [address] 08/19/2024 Orders Only [facility] Oncology and Hematology - [place] [address] [place] [address] 08/07/2024 External Device Data STL ABSTRACTION Provider, Abstract 08/05/2024 Orders Only [facility] Oncology and Hematology - [place] [address] [place] [address] 07/29/2024 9:45 AM CDT Office Visit [facility] Oncology and Hematology - [place] [address] [place] [address] Sonu Davis MD Anemia of chronic renal failure, unspecified CKD stage (Primary Dx) 07/29/2024 Orders Only [facility] Oncology and Hematology - [place] [address] [place] [address] Sonu Davis MD 07/27/2024 External Device Data STL ABSTRACTION Provider, Abstract 07/26/2024 External Device Data STL ABSTRACTION Provider, Abstract 07/25/2024 Orders Only [facility] Oncology and Hematology - [place] [address] [place] [address] Sonu Davis MD 07/23/2024 External Device Data STL ABSTRACTION Provider, Abstract 07/22/2024 Orders Only [facility] Hematology - [place] [address] [place] [address] 07/10/2024 External Device Data STL ABSTRACTION Provider, Abstract 07/08/2024 Orders Only [facility]ology - [place] [address] [place] [address] 06/24/2024 Orders Only [facility] - [place] [address] [place] [address] 06/18/2024 Orders Only [facility] - [place] [address] [place] [address] Sonu Davis MD 06/13/2024 External Device Data STL ABSTRACTION Provider, Abstract 06/12/2024 External Device Data STL ABSTRACTION Provider, Abstract 06/11/2024 External Device Data STL ABSTRACTION Provider, Abstract 06/10/2024 Orders Only [facility] Oncology and Hematology [facility] [address] [place] [address] 06/04/2024 External Device Data STL ABSTRACTION Provider, Abstract from Last 3 Months Family History Medical [...] Sign Reading Time Taken Comments Blood Pressure 120/69 07/29/2024 9:51 AM CDT Pulse 74 07/29/2024 9:51 AM CDT Temperature 35.9 C (96.7 F) 07/29/2024 9:51 AM CDT Respiratory Rate 15 07/29/2024 9:51 AM CDT Oxygen Saturation 94% 07/29/2024 9:51 AM CDT Inhaled Oxygen Concentration - - Weight 98.8 kg (217 lb 12.8 oz) 07/29/2024 9:51 AM CDT Height 167.6 cm (5' 6 ) 07/12/2023 11:2 2 AM WORK ORDER DETAILER Body Mass Index 35.15 07/12/2023 11:22 AM WORK ORDER DETAILER Plan of Treatment Upcoming Encounters Date Type Department Care Team (Late st Contact Info) Description 02/03/2025 9:45 AM CDT Office Visit [facility] Oncology and Hematology [place] [address] [place] [address] Sonu Davis MD [address] [facility] [address] [place] [address] Health Maintenance Due Date Last Done Comments DIABETES ANNUAL FOOT EXAM 1967 DIABETES MICROALBUMIN ANNUAL SCREEN 1967 LDL CHOLESTEROL ANNUAL 1967 DTAP/TDAP/TD VACCINES (1 - Tdap) 1968 FIT-DNA Q 3 years 1994 FIT/FOBT Q 1 year 1994 Flex Sig/CT Colonography Q 5 years 1994 Lung Cancer Screening 1999 ZOSTER VACCINE (1 of 2) 1999 PNEUMOCOCCAL VACCINE 50+ YEA RS (2 of 2 - PCV) 05/22/2014 05/22/2013 DIABETES ANNUAL RETINAL EXAM 09/13/2015 09/12/2014 DIABETES HBA1C Q 6 MONTHS 06/09/2016 12/08/2015 COLORECTAL SCREENING 09/14/2022 09/14/2012 Colorectal Cancer Screening 09/14/2022 INFLUENZA VACCINE (#1) 2023 0, 03/25/2015, 05/22/2012 COVID-19 Vaccine ( season) 2024, 07/24/2020 Medicare [place] ([place] Prev entative Visit/Annual Wellness Visit 05/22/2024 RSV VACCINE (60+ or ) (1 - 1-dose 75+ series) 2024 OSTEOPOROSIS SCREENING Completed 1, 12/17/2010, 12/17/2010 Procedures Procedure Name Priority Date/Time Associated Diagnosis Comments BASIC METABOLIC PANEL Routine 07/29/2024 3:47 PM CDT CBC WITH AUTODIFFERENTIAL Routine 2024 2:17 PM WORK ORDER DETAILER CBC WITH AUTODIFFERENTIAL Routine 2024 1:29 PM WORK ORDER DETAILER from Last 3 Months Results * BASIC METABOLIC PANEL (07/29/2024 3:47 PM CDT) Blood Sonu Davis MD CHEMISTRY ORDERABLES Final Resu lt * CBC WITH AUTODIFFERENTIAL (07/25/2024 2:17 PM WORK ORDER DETAILER) Only the most recent of2 resultswithin the time period is included. Blood Sonu Davis MD HEMATOLOGY ORDERABLES Final Res ult from Last 3 Months Insurance [facility] [id number] Care Teams Resource Agent Relationship Specialty Start Date End Date Tommy Gee MD [address] [place] [address] PCP - General Family Practice 07/11/23
--- OUTSIDE RECORDS SUMMARY | 2024-09-02 10:46 | XMS_ITS | Continuity of Care Document ---
Author Organization [facility] Address [address] [place] [address] [address] [place] [address] Phone Care Team Providers Care It Communications Specialist Name Role Phone Mayi Dorado Unavailable Unavailable Procedures Procedure Date Eye Exam, New Patient Eye Exam, New Patient Advance Directives Directive Yes / No Effective Date File Name No Information Encounters Encounter Description Practice Location Reason(s) For Visit Diagnoses Date Provider Providers Copied on Encounter [facility], [address] [place] [address] [address], [place], [place], [id number], tel:[phone] SEC [facility] No Information Sep-0 [address] [place] , [address], [place], [address], [place]. tel:[phone] [facility], [address] [place] [address] [address], [place], [place], [id number], tel:[phone] [facility] [place] No Information [address] [facility] , [address], [place], [address], [place]. tel:[phone] Referring Provider: Fan Dougherty MD , [address] [facility] [address], [place], [address]. tel:[phone] Family History Family Member Type Diagnosis Age At Onset No Information Payers Payer name Insurance type Covered alliance party ID Authoriza tion(s) No Information Social History [...]
--- OUTSIDE RECORDS SUMMARY | 2024-09-02 10:46 | XMS_ITS | Clinical Summary ---
Author Organization [facility] Address [address] [place] [address] Care Team Providers Care Joinery Setter Out Name Role Phone Artur Henning DO Primary Care Provider [phone] Source Comments [facility],non-owned Affiliates and Associated Physician Practices is amultiple site organization consisting of ambulatory clinics and hospital sitesin [place], [place], [place] and [place]. This disclosure is being madepursuant to the Care Everywhere program and may not contain all information available regarding this patient. Last updated 18.[facility] Allergies No known active allergies Immunizations Immunization Administration Dates Next Due INFLUENZA VACCINE, HIGH-DOSE , QUADR. 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 Gender Identity Not on file Sexual Orientation [...] VACCINE (1 of 2) 1999 COVID-19 VACCINE (2023-2 5 season) 2024 DEPRESSION SCREENING 05/22/2024 MEDICARE AWV CALENDAR YEAR 2024 Respiratory Syncytial Virus (RSV) Vaccine Pt: or over 60 yrs (1 - 1-dose 75+ series) 2024 INFLUENZA VACCINE (Season Ended) 2025 03/16/2020, 03/25/2015, 05/22/2012 HEPATITIS B VACCINE Aged Out No longe r eligible based on patient's age to complete this topic HIB VACCINE Aged Out No longer eligi ble based on patient's age to complete this topic HPV VACCINE Aged Out No longer eligi ble based on patient's age to complete this topic MENINGOCOCCAL (Group B) VACCINE SHARED DECISION-MAKING Aged Out No longer eligible based on patient's age to complete this topic MENINGOCOCCAL GROUPS A/C/Y/W VACCINE Aged Out No longer eligible b ased on patient's age to complete this topic Insurance [facility] MANAGED MEDICARE ADV MANAGED MEDICARE ADV * Guarantor: ANTONIA ROSALES Account Type Relation to Patient Date of Phone Billing Address Personal/Family [address], [place] * Guarantor: ANTONIA ROSALES Account Type Relation to Patient Date of Phone Billing Address Personal/Family [address], [place] * Guarantor: ANTONIA ROSALES Account Type Relation to Patient Date of Phone Billing Address Personal/Family [address], [place] Care Teams Joinery Setter Out Relationship Specialty Start Date End Date Artur Henning DO [address] [place] [address] PCP - General Internal Medicine 03/16/20
[2024-09-02 10:49] LABS: Alanine Aminotransferase 32 U/L (6-35); Albumin Level 4.3 g/dL (3.5-5.1); Alkaline Phosphatase 162 U/L (38-126); Anion Gap 13 mmol/L (4-12); Aspartate Amino Transferase 42 U/L (14-36); Bilirubin,Total 0.4 mg/dL (0.2-1.3); Blood Urea Nitrogen 30 mg/dL (7-17); Calcium 10.3 mg/dL (8.4-10.2); Carbon Dioxide 23 mmol/L (22-30); Chloride 100 mmol/L (98-107); Cholesterol 105 mg/dL (0-200); Estimated Glomerular Filt Rate 38; Glucose 246 mg/dL (65-110); HDL Direct 29 mg/dL; Potassium 4.7 mmol/L (3.4-5.0); Sodium 136 mmol/L (137-145); Triglycerides 192 mg/dL (<150)
[2024-09-02 10:51] LABS: Hemoglobin A1C 7.9 % (<5.7)
[2024-09-02 11:01] LABS: LDL Cholesterol Direct 41 mg/dL
== END 2024-09-02 09:52 | disposition home or self-care (01) ==
LOC: ANHLAB 09:53
PROVIDERS: PCP Nurse Practitioner Family; Visit Provider Nurse Practitioner Family
DX: E11.22 Type 2 diabetes mellitus with diabetic chronic kidney disease (principal); I12.9 Hypertensive chronic kidney disease with stage 1 through stage 4 chronic kidney disease, or unspecified chronic kidney disease; N18.30 Chronic kidney disease, stage 3 unspecified; E78.2 Mixed hyperlipidemia; E03.9 Hypothyroidism, unspecified; D63.1 Anemia in chronic kidney disease; E04.1 Nontoxic single thyroid nodule; M51.360 Other intervertebral disc degeneration, lumbar region with discogenic back pain only
CPT/HCPCS: 36415; 80053; 80061; 83036

== ENCOUNTER 2024-11-05 08:54 | Outpatient (CLI) | payer MEDICARE, MEDICAID, SELFPAY ==
--- OUTSIDE RECORDS SUMMARY | 2024-11-05 09:31 | XMS_ITS | Clinical Summary ---
Author Organization [facility] Address [address] [address] Phone Care Team Providers Care Gang Worker Name Role Phone María Aranda Damian DO Unavailable [phone] Christian Jaimes DO Unavailable [phone] Artur Henning DO Primary Care Provider [phone] Allergies Active Allergy Reactions Criticality Noted Date [...] 12:53 PM CDT Height 167.6 cm (5' 6) 12/09/2015 12:53 PM CDT Body Mass Index 41.16 12/09/2015 12:53 PM CDT Plan of Treatment Health Maintenance Due Date Last Done Comments Diabetes: Foot Exam 1950 Hepatitis C Virus (HCV) Screening 1950 TdaP Immunization 1950 Cologuard 1994 Immunochemical Fecal Occult Blood 1994 Zoster Immunization (1 of 2) 1999 Diabetes: Eye Exam 09/13/2015 09/12/2014 Diabetes: Hemoglobin A1c 06/09/2016 016, 06/09/2015, 01/03/2013, Additional history exists Diabetes: Nephropathy Screening 12/07/2016 12/08/2015, 06/09/2015, 01/03/2013, Additional history exists Colonoscopy 09/14/2022 09/14/2012 Colorectal Cancer Screening 09/14/2022 SARS-COV-2 Immunization ( season) 2024 04/12/2021, 08/14/2020, 07/24/2020 Respiratory Syncytial Virus (RSV) Immunization (Adult) (1 - 1-dose 75+ series) 2024 Influenza Immunization (Season Ended) 2025 03/16/2020, 07/30/2018, 05/29/2017, Additional history exists DEXA Bone Density Discontinued 12/17/2010, , 12/17/2008, Additional history exists Mammogram Discontinued 03/07/2016, 08/21, 12/17/2010, Additional history exists Pneumococcal Immunization (50+ years) Completed 07/30/2018, 05/29/2017, 05/22/2013 Pneumococcal Immunization Combined Discontinued 07/30/2018, 05/29/2017, 05/22/2013 Hepatitis B Immunization Aged Out No longer eligible based on patient's age to complete this topic Human Papillomavirus (HPV) Immunization Aged Out No longer eligible based on patient's age to complete this topic Meningococcal Immunization (ACWY) Aged Out No longer eligible based on patient's age to complete this topic Rotavirus Immunization Aged Out No lo nger eligible based on patient's age to complete this topic Procedures Procedure Name Priority Date/Time Associated Diagnosis Comments TRCAY DIAG BILATERAL DIGITAL W CAD Routine 03/07/2016 [...] EXAM Routine 09/12/2014 HM COLONOSCOPY Routine 09/14/2012 TRACY BONE DENSITOMETRY AXIAL SKELETON Routine 12/17/2010 from [...] copy. Current study was also evaluated with [employer] version 7.2. CLINICAL: Diagnostic study. 65-year-old woman presents for evaluation of focal pain in the medial left breast, first noted in September 2015 with an associated lump that has since resolved, and annual mammography of the right breast. No personal history of cancer. No family history of breast cancer. COMPARISONS: Comparison is made to exams dated: 09/12/2014 and 12/17/2010 [facility]. BREAST TISSUE: The tissue of both [...] is recommended. Yury Sales M.D. nh/:03/07/2016 14:50:43 Senior Corporate Recruiter: Tameka España(Kash), [facility] letter sent: Normal Exam Reading location: [facility] BI-RADS: 1 Negative Procedure Note Yury Sales MD - 03/08/2016 - TRACY DIAG BILATERAL DIGITAL W CAD BILATERAL DIGITAL DIAGNOSTIC MAMMOGRAM WITH CAD WITH LATEROMEDIAL MEDIOLATERAL OBLIQUE CRANIOCAUDAL: 03/07/2016 The study was acquired using digital technology and interpreted from soft copy. Current study was also evaluated with [employer] version 7.2. CLINICAL: Diagnostic study. 65-year-old woman presents for evaluation of focal pain in the medial left breast, first noted in September 2015 with an associated lump that has since resolved, and annual mammography of the right breast. No personal history of cancer. No family history of breast cancer. COMPARISONS: Comparison is made to exams dated: 09/12/2014 and 12/17/2010 [facility]. BREAST TISSUE: The tissue of both [...] is recommended. Yury Sales M.D. nh/:03/07/2016 14:50:43 Senior Corporate Recruiter: Tameka España(R), [facility] letter sent: Normal Exam Reading location: [facility] BI-RADS: 1 Negative us Mauricio Holm MD IMG MAMMO ORDERABLES Noreen l Result * (ABNORMAL) HEMOGLOBIN A1C W/ ESTIMATED GLUCOSE (12/08/2015 10:40 AM CDT) HGB-A1C 6.6(H) 4.4 - 6.4 % 12/08/2015 3:28 PM CDT [facility] Est Average Glucose 142.7 mg/dL 12/08/2015 3:28 PM CDT [facility] Blood specimen (specimen) Venipuncture / Unknown 12/08/2015 10:40 AM CDT 12/08/2015 10:40 AM CDT Narrative [facility] - 12/08/2015 3:28 PM CDT HEMOGLOBIN A1C: DIABETIC PATIENTS: WELL-CONTROLLED: 6.2 - 7.0 INTERMEDIATE WELL-CONTROLLED: 7.0 - 9.0 POORLY-CONTROLLED: >9.0 us Mauricio Holm MD CHEMISTRY ORDERABLES Noreen neal Result [facility] [address] [place] [address] * (ABNORMAL) CMP (COMPREHENSIVE METABOLIC PANEL) (12/08/2015 10:40 AM CDT) [facility] SODIUM 137 131 - 143 mmol/L 12/08/2015 3:47 PM CDT [facility] POTASSIUM 3.7 3.5 - 5.1 mmol/L 12/08/2015 3:47 PM CDT [facility] CHLORIDE 102 100 - 110 mmol/L 12/08/2015 3:47 PM CDT [facility] CO2, VENOUS 25 22 - 32 mmol/L 12/08/2015 3:47 PM CDT [facility] ANION GAP 13.7 8.0 - 20.0 mmol/L 12/08/2015 3:47 PM CDT [facility] GLUCOSE 144(H) 70 - 105 mg/dL 12/08/2015 3:47 PM CDT [facility] BUN 12 10 - 31 mg/dL 12/08/2015 3:47 PM CDT [facility] CREATININE, BLOOD 0.58(L) 0.60 - 1.30 mg/dL 12/08/2015 3:47 PM CDT [facility] BUN/CREATININE RATIO 21(H) 12 - 20 ratio 12/08/2015 3:47 PM CDT [facility] TOTAL PROTEIN 7.2 6.0 - 8.3 g/dL 12/08/2015 3:47 PM CDT [facility] ALBUMIN 3.8 3.5 - 5.2 g/dL 12/08/2015 3:47 PM CDT [facility] A/G RATIO 1.1 1.0 - 2.0 12/08/2015 3:47 PM CDT [facility] CALCIUM 9.4 8.9 - 10.3 mg/dL 12/08/2015 3:47 PM CDT [facility] T BILI 0.4 0.3 - 1.2 mg/dL 12/08/2015 3:47 PM CDT [facility] SGOT (AST) 40(H) 1 - 32 U/L 12/08/2015 3:47 PM CDT [facility] SGPT (ALT) 23 1 - 33 U/L 12/08/2015 3:47 PM CDT [facility] ALKALINE PHOSPHATASE 106(H) 35 - 105 U/L 12/08/2015 3:47 PM CDT [facility] GFR, EST. NONAFRICAN >60 >=60 12/08/2015 3:47 PM CDT [facility] GFR, EST. >60 >=60 12/08/2015 3:47 PM CDT [facility] Comment: Creatinine Clearance is the preferred criteria for selecting drug dose adjustments in renally impaired patients. The GFR is provided as additional pertinent clinical information. GFR is reported in mL/min/1.73 sq m. Blood specimen (specimen) Venipuncture / Unknown 12/08/2015 10:40 AM CDT 12/08/2015 10:40 AM CDT us Mauricio Holm MD CHEMISTRY ORDERABLES Noreen neal Result [facility] [address] [facility] [place] [address] * DILATED EYE EXAM (09/12/2014) us Unknown Provider PROCEDURE/MINOR SURGICAL ORDERA BLES Final Result * COLONOSCOPY (09/14/2012) us Fan Dougherty MD PROCEDURE/MINOR SURGICAL ORDER SAMUEL Final Result * [facility] BONE DENSITOMETRY AXIAL SKELETON (12/17/2010) Anatomical Region Laterality Modality BODY N/A Other us Fan Dougherty MD IMG DEXA ORDERABLES Final Resu lt from Last 3 Months or Most Recently Relevant to Health Maintenance Insurance MEDICAID [place] MEDICARE C [employer] on file Care Teams Gang Worker Relationship Specialty Start Date End Date Artur Henning DO [address] [address] PCP - General Internal Medicine 10/08/20 María Aranda DO [address], [place] [address] Hospitalist Internal Medicine 01/13/17 Christian Jaimes DO [address], [place] [address] Consulting Physician Gastroenterology 01/13/17
--- OUTSIDE RECORDS SUMMARY | 2024-11-05 09:31 | XMS_ITS | Continuity of Care Document ---
Author Organization [facility] Address [address] [place] [address] [address] [place] [address] Phone Care Team Providers Care Urology Nurse Name Role Phone Mayi Dorado Unavailable Unavailable Procedures Procedure Date Eye Exam, New Patient Eye Exam, New Patient Advance Directives Directive Yes / No Effective Date File Name No Information Encounters Encounter Description Practice Location Reason(s) For Visit Diagnoses Date Provider Providers Copied on Encounter [facility], [address] [place] [address] [address], [place], [place], [id number], tel:[phone] SEC [facility] No Information Sep-0 [address] , [address], [place], [address], [place]. tel:[phone] [facility], [address] [place] [address] [address], [place], [place], [address], tel:[phone] [facility] [place] No Information [address] [facility] , [address], [place], [address], [place]. tel:[phone] Referring Provider: Fan Dougherty MD , [address] [facility] [address] [facility] [address], [place], [address]. tel:[phone] Family History Family Member Type Diagnosis Age [...]
--- OUTSIDE RECORDS SUMMARY | 2024-11-05 09:31 | XMS_ITS | Clinical Summary ---
Author Organization [facility] Carlos A Moon Address [address] [place] [address] Care Team Providers Care Clearance Coordinator Name Role Phone Tommy Gee MD Primary Care Provider [phone] Allergies Active Allergy Reactions Criticality Noted Date [...] Encounters Date Type Department Care Team Description 10/28/2024 Orders Only [facility] Oncology and Hematology - [place] [address] [place] [address] 10/17/2024 Orders Only [facility]ematology - [place] [address] [place] [address] Sonu Davis MD 10/14/2024 Orders Only [facility] - [place] [address] [place] [address] 10/10/2024 External Device Data STL ABSTRACTION Provider, Abstract 09/30/2024 Orders Only [facility] - [place] [address] [place] [address] 09/16/2024 Orders Only [facility] - [place] [address] [place] [address] 09/10/2024 Orders Only [facility] - [place] [address] [place] [address] Sonu Davis MD 09/02/2024 Orders Only [facility] - [place] [address] [place] [address] 08/19/2024 Orders Only [facility] - [place] [address] [place] [address] 08/07/2024 External Device Data STL ABSTRACTION Provider, Abstract 08/05/2024 Orders Only [facility] - [place] [address] [place] [address] from Last 3 Months Family History Medical [...] 9:51 AM CDT Height 167.6 cm (5' 6) 07/12/2023 11:2 2 AM DIRECT MAIL MARKETER Body Mass Index 35.15 07/12/2023 11:22 AM DIRECT MAIL MARKETER Plan of Treatment Upcoming Encounters Date Type Department Care Team (Late st Contact Info) Description 02/03/2025 9:45 AM CDT Office Visit [facility] - [place] [address] [facility] [address] [place] [address] Sonu Davis MD [address] [facility] [address] [place] [address] Health Maintenance Due Date Last [...] 05/22/2013 DIABETES ANNUAL RETINAL EXAM 09/13/2015 09/12/2014 OSTEOPOROSIS SCREENING 12/18/2015 1, 12/17/2010, 12/17/2010 DIABETES HBA1C Q 6 MONTHS 06/09/2016 12/08/2015 COLORECTAL SCREENING 09/14/2022 09/14/2012 Colorectal Cancer Screening 09/14/2022 INFLUENZA VACCINE (#1) 2023 , 03/25/2015, 05/22/2012 COVID-19 Vaccine ( season) 2024, 07/24/2020 RSV VACCINE (60+ or ) (1 - 1-dose 75+ series) 2024 Procedures Procedure Name Priority Date/Time Associated Diagnosis Comments CBC WITH DIFFERENTIAL Routine 10/17/2024 4:19 PM CDT IRON PANEL Routine 09/10/2024 3:19 PM CDT from Last 3 Months Results * CBC WITH DIFFERENTIAL (10/17/2024 4:19 PM CDT) Blood us Sonu Davis MD HEMATOLOGY ORDERABLES Final Res ult * IRON PANEL (09/10/2024 3:19 PM CDT) Blood us Sonu Davis MD CHEMISTRY ORDERABLES Final Resu lt from Last 3 Months Insurance [facility] [id number] [facility] [place] [place] Address: [facility] [address] [place] [address] Care Teams Clearance Coordinator Relationship Specialty Start Date End Date Tommy Gee MD [address] [place] [address] PCP - General Family Practice 07/11/23
--- OUTSIDE RECORDS SUMMARY | 2024-11-05 09:31 | XMS_ITS | Clinical Summary ---
Author Organization [facility] Address [address] [place] [address] Care Team Providers Care Smoked Meat Preparer Name Role Phone Artur Henning DO Primary Care Provider Source Comments [facility],non-owned Affiliates and Associated Physician Practices is amultiple site organization consisting of ambulatory clinics and hospital sitesin [place], [place], [place] and [place]. This disclosure is being madepursuant to the Care Everywhere program and may not contain all information available regarding this patient. Last updated 18.[facility] [employer] Allergies No known active allergies Immunizations Immunization Administration Dates Next Due INFLUENZA VACCINE, HIGH-DOSE , QUADR. 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 Gender Identity Not on file Sexual Orientation [...] patient's age to complete this topic Insurance [facility] MANAGED MEDICARE ADV MANAGED MEDICARE ADV * Guarantor: ANTONIA ROSALES Account Type Relation to Patient Date of Phone Billing Address Personal/Family [address], [place] * Guarantor: ANTONIA ROSALES Account Type Relation to Patient Date of Phone Billing Address Personal/Family [address], [place] * Guarantor: ANTONIA ROSALES Account Type Relation to Patient Date of Phone Billing Address Personal/Family [address], [place] Care Teams Smoked Meat Preparer Relationship Specialty Start Date End Date Artur Henning DO [address] [place] [address] PCP - General Internal Medicine 03/16/20
[2024-11-05 10:14] LABS: Anion Gap 12 mmol/L (4-12); Blood Urea Nitrogen 25 mg/dL (7-17); Carbon Dioxide 22 mmol/L (22-30); Chloride 100 mmol/L (98-107); Estimated Glomerular Filt Rate 45; Glucose 244 mg/dL (65-110); Magnesium 1.7 mg/dL (1.6-2.3); Phosphorus 3.3 mg/dL (2.5-4.5); Potassium 4.5 mmol/L (3.4-5.0); Sodium 134 mmol/L (137-145)
[2024-11-05 10:46] LABS: Creatinine Urine 62.2 mg/dL; Total Protein Urine Random 13 mg/dL; Ur Ttl Prot Creatinine Ratio 0.21 mg/mg (0-0.20)
== END 2024-11-05 08:55 | disposition home or self-care (01) ==
PROVIDERS: PCP Nurse Practitioner Family; Visit Provider Internal Medicine Nephrology
DX: I12.9 Hypertensive chronic kidney disease with stage 1 through stage 4 chronic kidney disease, or unspecified chronic kidney disease (principal); E11.22 Type 2 diabetes mellitus with diabetic chronic kidney disease; N18.32 Chronic kidney disease, stage 3b; E83.42 Hypomagnesemia
CPT/HCPCS: 36415; 80069; 82570; 83735; 84156

== ENCOUNTER 2024-12-16 09:12 | Outpatient (CLI) | payer MEDICARE, MEDICAID, SELFPAY ==
--- OUTSIDE RECORDS SUMMARY | 2024-12-16 09:30 | XMS_ITS | Clinical Summary ---
Author Organization [facility] Address [address] [address] Phone Care Team Providers Care Production Reproduction Manager Name Role Phone María Aranda Damian DO Unavailable Christian Jaimes DO Unavailable [phone] Artur Henning DO Primary Care Provider [phone] Allergies Active Allergy Reactions Criticality Noted Date [...] - 1-dose 75+ series) 2024 Influenza Immunization (#1) 01/20/202502/20, 07/30/2018, 05/29/2017, Additional history exists DEXA Bone [...] copy. Current study was also evaluated with DivvyHQ version 7.2. CLINICAL: Diagnostic study. 65-year-old woman presents for evaluation of focal pain in the medial left breast, first noted in September 2015 with an associated lump that has since resolved, and annual mammography of the right breast. No personal history of cancer. No family history of breast cancer. COMPARISONS: Comparison is made to exams dated: 09/12/2014 and 12/17/2010 [facility]. BREAST TISSUE: The tissue of both breasts [...] is recommended. Yury Sales M.D. nh/:03/07/2016 14:50:43 Wheel Adjuster: Tameka España(Kash), [facility] letter sent: Normal Exam Reading location: [facility] BI-RADS: 1 Negative Procedure Note Yury Sales MD - 03/08/2016 - TRACY DIAG BILATERAL DIGITAL W CAD BILATERAL DIGITAL DIAGNOSTIC MAMMOGRAM WITH CAD WITH LATEROMEDIAL MEDIOLATERAL OBLIQUE CRANIOCAUDAL: 03/07/2016 The study was acquired using digital technology and interpreted from soft copy. Current study was also evaluated with MethylGeneD version 7.2. CLINICAL: Diagnostic study. 65-year-old woman presents for evaluation of focal pain in the medial left breast, first noted in September 2015 with an associated lump that has since resolved, and annual mammography of the right breast. No personal history of cancer. No family history of breast cancer. COMPARISONS: Comparison is made to exams dated: 09/12/2014 and 12/17/2010 [facility]. BREAST TISSUE: The tissue of both breasts [...] screening mammogram is recommended. Yury Sales M.D. ky/:03/07/2016 14:50:43 Wheel Adjuster: Tameka España(Kash), [facility] letter sent: Normal Exam Reading location: [facility] BI-RADS: 1 Negative us Mauricio Holm MD IMG MAMMO ORDERABLES Noreen l Result * (ABNORMAL) HEMOGLOBIN A1C W/ ESTIMATED GLUCOSE (12/08/2015 10:40 AM CDT) HGB-A1C 6.6(H) 4.4 - 6.4 % 12/08/2015 3:28 PM CDT [facility] Est Average Glucose 142.7 mg/dL 12/08/2015 3:28 PM CDT [facility] Blood specimen (specimen) Venipuncture / Unknown 12/08/2015 10:40 AM CDT 12/08/2015 10:40 AM CDT Narrative [facility] - 12/08/2015 3:28 PM CDT HEMOGLOBIN A1C: DIABETIC PATIENTS: WELL-CONTROLLED: 6.2 - 7.0 INTERMEDIATE WELL-CONTROLLED: 7.0 - 9.0 POORLY-CONTROLLED: >9.0 us Mauricio Holm MD CHEMISTRY ORDERABLES Noreen neal Result [facility] [address] [place] [address] * (ABNORMAL) CMP (COMPREHENSIVE METABOLIC PANEL) (12/08/2015 10:40 AM CDT) Pathologist [facility] SODIUM 137 131 - 143 mmol/L 12/08/2015 3:47 PM CDT [facility] POTASSIUM 3.7 3.5 - 5.1 mmol/L 12/08/2015 3:47 PM CDT [facility] CHLORIDE 102 100 - 110 mmol/L 12/08/2015 3:47 PM CDT [facility] CO2, VENOUS 25 22 - 32 mmol/L 12/08/2015 3:47 PM CDT [facility] ANION GAP 13.7 8.0 - 20.0 mmol/L 12/08/2015 3:47 PM CDT [facility] GLUCOSE 144(H) 70 - 105 mg/dL 12/08/2015 3:47 PM CDT [facility] BUN 12 10 - 31 mg/dL 12/08/2015 3:47 PM CDT [facility] CREATININE, BLOOD 0.58(L) 0.60 - 1.30 mg/dL 12/08/2015 3:47 PM CDT [facility] BUN/CREATININE RATIO 21(H) 12 - 20 ratio 12/08/2015 3:47 PM CDT [facility] TOTAL PROTEIN 7.2 6.0 - 8.3 g/dL 12/08/2015 3:47 PM CDT [facility] ALBUMIN 3.8 3.5 - 5.2 g/dL 12/08/2015 3:47 PM CDT [facility] A/G RATIO 1.1 1.0 - 2.0 12/08/2015 3:47 PM CDT [facility] CALCIUM 9.4 8.9 - 10.3 mg/dL 12/08/2015 3:47 PM CDT [facility] T BILI 0.4 0.3 - 1.2 mg/dL 12/08/2015 3:47 PM CDT [facility] SGOT (AST) 40(H) 1 - 32 U/L 12/08/2015 3:47 PM CDT [facility] SGPT (ALT) 23 1 - 33 U/L 12/08/2015 3:47 PM CDT [facility] ALKALINE PHOSPHATASE 106(H) 35 - 105 U/L 12/08/2015 3:47 PM CDT [facility] GFR, EST. NONAFRICAN >60 >=60 12/08/2015 3:47 PM CDT [facility] GFR, EST. >60 >=60 12/08/2015 3:47 PM CDT [facility] Comment: Creatinine Clearance is the preferred criteria for selecting drug dose adjustments in renally impaired patients. The GFR is provided as additional pertinent clinical information. GFR is reported in mL/min/1.73 sq m. Blood specimen (specimen) Venipuncture / Unknown 12/08/2015 10:40 AM CDT 12/08/2015 10:40 AM CDT us Mauricio Holm MD CHEMISTRY ORDERABLES Noreen val Result [facility] [address] [place] [address] * DILATED EYE EXAM (09/12/2014) us Unknown Provider PROCEDURE/MINOR SURGICAL ORDERA BLES Final Result * COLONOSCOPY (09/14/2012) us Fan Dougherty MD PROCEDURE/MINOR SURGICAL ORDER SAMUEL Final Result * [facility] BONE DENSITOMETRY AXIAL SKELETON (12/17/2010) Anatomical Region Laterality Modality BODY N/A Other us Fan Dougherty MD IMG DEXA ORDERABLES Final Resu lt from Last 3 Months or Most Recently Relevant to Health Maintenance Insurance MEDICAID [place] MEDICARE C [employer] on file Care Teams Production Reproduction Manager Relationship Specialty Start Date End Date Artur Henning DO [address] [address] PCP - General Internal Medicine 10/08/20 María Aranda DO [address] [place] [address] Hospitalist Internal Medicine 01/13/17 Christian Jaimes DO [address] [place] [address] Consulting Physician Gastroenterology 01/13/17
--- OUTSIDE RECORDS SUMMARY | 2024-12-16 09:30 | XMS_ITS | Clinical Summary ---
Author Organization [facility] Address [address] [place] [address] Care Team Providers Care Glass Cleaning Machine Tender Name Role Phone Artur Henning DO Primary Care Provider [phone] Source Comments [facility],non-owned Affiliates and Associated Physician Practices is amultiple site organization consisting of ambulatory clinics and hospital sitesin [place], [place], [place] and [place]. This disclosure is being madepursuant to the Care Everywhere program and may not contain all information available regarding this patient. Last updated 18.[facility] [employer] Allergies No known active allergies Immunizations Immunization Administration Dates Next Due INFLUENZA VACCINE, HIGH-DOSE , QUADR. 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 Gender Identity Not on file Sexual Orientation [...] - 1-dose 75+ series) 2024 INFLUENZA VACCINE (#1) 2025 , 03/25/2015, 05/22/2012 HEPATITIS B VACCINE Aged Out [...] patient's age to complete this topic Insurance [facility] MANAGED MEDICARE ADV MANAGED MEDICARE ADV * Guarantor: ANTONIA ROSALES Account Type Relation to Patient Date of Phone Billing Address Personal/Family [address], [place] * Guarantor: ANTONIA ROSALES Account Type Relation to Patient Date of Phone Billing Address Personal/Family [address], [place] * Guarantor: ANTONIA ROSALES Account Type Relation to Patient Date of Phone Billing Address Personal/Family [address], [place] Care Teams Glass Cleaning Machine Tender Relationship Specialty Start Date End Date Artur Henning DO [address] [place] [address] PCP - General Internal Medicine 03/16/20
--- OUTSIDE RECORDS SUMMARY | 2024-12-16 09:30 | XMS_ITS | Clinical Summary ---
Author Organization [facility] A [facility] Address [address] [place] [address] Care Team Providers Care Retail Leader Name Role Phone Tommy Gee MD Primary Care Provider [phone] Allergies Active Allergy Reactions Criticality Noted Date [...] Encounters Date Type Department Care Team Description 12/04/2024 External Device Data STL ABSTRACTION Provider, Abstract 12/03/2024 External Device Data STL ABSTRACTION Provider, Abstract 11/11/2024 Orders Only [facility] - [place] [address] [place] [address] 11/05/2024 External Device Data STL ABSTRACTION Provider, Abstract 10/28/2024 Orders Only [facility] [place] [address] [place] [address] 10/17/2024 Orders Only [facility] [place] [address] [place] [address] Sonu Davis MD 10/14/2024 Orders Only [facility] - [place] [address] [place] [address] 10/10/2024 External Device Data STL ABSTRACTION Provider, Abstract 09/30/2024 Orders Only [facility] [place] [address] [place] [address] 09/16/2024 Orders Only [facility] [place] [address] [place] [address] from Last 3 Months Family History Medical [...] cm (5' 6) 07/12/2023 11:2 2 AM SUPERVISOR RECEIVING AND PROCESSING Body Mass Index 35.15 07/12/2023 11:22 AM SUPERVISOR RECEIVING AND PROCESSING Plan of Treatment Upcoming Encounters Date Type Department Care Team (Late st Contact Info) Description 02/03/2025 9:45 AM CDT Office Visit [facility] On[facility]ology - [place] [address] [facility] [address] [place] [address] Sonu Davis MD [address] [place] [address] Health Maintenance Due Date Last [...] SCREENING 09/14/2022 09/14/2012 Colorectal Cancer Screening 09/14/2022 COVID-19 Vaccine (3 - season) 2024, 07/24/2020 RSV VACCINE (60+ or ) (1 - 1-dose 75+ series) 2024 INFLUENZA VACCINE (#1) 2024 0, 03/25/2015, 05/22/2012 Procedures Procedure Name Priority Date/Time Associated Diagnosis Comments CBC WITH DIFFERENTIAL Routine 10/17/2024 4:19 PM CDT from Last 3 Months Results * CBC WITH DIFFERENTIAL (10/17/2024 4:19 PM CDT) Blood Sonu Davis MD HEMATOLOGY ORDERABLES Final Res ult from Last 3 Months Insurance Care Teams Retail Leader Relationship Specialty Start Date End Date Tommy Gee MD [address] [place] [address] PCP - General Family Practice 07/11/23
--- OUTSIDE RECORDS SUMMARY | 2024-12-16 09:30 | XMS_ITS | Continuity of Care Document ---
Author Organization [facility] Address [address] [place] [address] [address] [place] [address] Phone Care Team Providers Care Silverer Name Role Phone Mayi Dorado Unavailable Unavailable Procedures Procedure Date Eye Exam, New Patient Eye Exam, New Patient Advance Directives Directive Yes / No Effective Date File Name No Information Encounters Encounter Description Practice Location Reason(s) For Visit Diagnoses Date Provider Providers Copied on Encounter [facility], [address] [place] [address] [address], [place], [place], [id number], tel:[phone] SEC [facility] No Information Sep-[address] [facility] [address] , [address], [place], [address], [place]. tel:[phone] [facility], [address] [place] [address] [address], [place], [place], [id number], tel:[phone] [facility] [place] No Information [address] [facility] , [address], [place], [address], [place]. tel:[phone] Referring Provider: Fan Dougherty MD , [address], [place], [address]. tel:[phone] Family History Family Member Type Diagnosis Age At Onset No Information Payers Payer name Insurance type Covered green party ID Authoriza tion(s) No Information Social [...]
[2024-12-16 10:06] LABS: Alanine Aminotransferase 39 U/L (6-35); Albumin Level 4.0 g/dL (3.5-5.1); Alkaline Phosphatase 140 U/L (38-126); Anion Gap 14 mmol/L (4-12); Aspartate Amino Transferase 51 U/L (14-36); Bilirubin,Total 0.3 mg/dL (0.2-1.3); Blood Urea Nitrogen 30 mg/dL (7-17); Calcium 10.0 mg/dL (8.4-10.2); Carbon Dioxide 22 mmol/L (22-30); Chloride 101 mmol/L (98-107); Estimated Glomerular Filt Rate 37; Glucose 256 mg/dL (65-110); Potassium 4.6 mmol/L (3.4-5.0); Sodium 137 mmol/L (137-145); Total Protein 7.3 g/dL (6.3-8.2)
[2024-12-16 10:09] LABS: Hemoglobin A1C 7.6 % (<5.7)
== END 2024-12-16 09:13 | disposition home or self-care (01) ==
PROVIDERS: PCP Nurse Practitioner Family; Visit Provider Nurse Practitioner Family
DX: E11.22 Type 2 diabetes mellitus with diabetic chronic kidney disease (principal); I12.9 Hypertensive chronic kidney disease with stage 1 through stage 4 chronic kidney disease, or unspecified chronic kidney disease; N18.31 Chronic kidney disease, stage 3a; E78.2 Mixed hyperlipidemia; K21.9 Gastro-esophageal reflux disease without esophagitis; D50.9 Iron deficiency anemia, unspecified; D63.1 Anemia in chronic kidney disease
CPT/HCPCS: 36415; 80053; 83036

== ENCOUNTER 2025-03-04 10:45 | Outpatient (RCR) | payer MEDICARE, MEDICAID, SELFPAY ==
[2025-03-04 09:53] VITALS: BMI 34.0
[2025-03-04 10:00] VITALS: BMI 34.0
--- NOTE | 2025-03-04 12:24 | PCDIET ---
03/04/25: MNT consult completed. Follow up Scheduled.
--- NOTE | 2025-04-02 09:04 | PCDIET ---
04/02/25: Patient left a message at 7:51 am this morning cancelling today's 9:30 MNT follow up appt. I reached out to her, ~ 9:00 am, (answering machine) and left a message with call back numbers for rescheduling.
== END 2025-05-19 12:43 | disposition home or self-care (01) ==
LOC: ANHDMC 10:45
PROVIDERS: PCP Nurse Practitioner Family; Visit Provider Family Medicine
DX: E11.65 Type 2 diabetes mellitus with hyperglycemia (principal); Z71.89 Other specified counseling; Z71.3 Dietary counseling and surveillance
CPT/HCPCS: 97802; G0108

== ENCOUNTER 2025-03-05 09:26 | Outpatient (CLI) | payer MEDICARE, MEDICAID, SELFPAY ==
--- OUTSIDE RECORDS SUMMARY | 2025-03-05 10:36 | XMS_ITS | Clinical Summary ---
Author Organization [facility] Address [address] [place] [address] Care Team Providers Care Tube Coater Name Role Phone Artur Henning DO Primary Care Provider Source Comments [facility] [employer]non-owned Affiliates and Associated Physician Practices is amultiple site organization consisting of ambulatory clinics and hospital sitesin [place], [place], [place] and [place]. This disclosure is being madepursuant to the Care Everywhere program and may not contain all information available regarding this patient. Last updated 18.[facility] [employer] Allergies No known active allergies Immunizations Immunization Administration Dates Next Due INFLUENZA VACCINE, HIGH-DOSE , QUADR. 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 Gender Identity Not on file Sexual Orientation [...] 1999 ZOSTER VACCINE (1 of 2) 1999 DEPRESSION SCREENING 05/22/2024 MEDICARE AWV CALENDAR YEAR 2024 Respiratory Syncytial Virus (RSV) Vaccine Pt: or over 60 yrs (1 - 1-dose 75+ series) 2024 COVID-19 VACCINE (2023-2 5 season) 2025 INFLUENZA VACCINE (#1) 2025 , 03/25/2015, 05/22/2012 [...] patient's age to complete this topic Insurance [facility] MANAGED MEDICARE ADV MANAGED MEDICARE ADV * Guarantor: ANTONIA ROSALES Account Type Relation to Patient Date of Phone Billing Address Personal/Family [address] [place], [place] * Guarantor: ANTONIA ROSALES Account Type Relation to Patient Date of Phone Billing Address Personal/Family [address] [place], [place] * Guarantor: ANTONIA ROSALES Account Type Relation to Patient Date of Phone Billing Address Personal/Family [address], [place] Care Teams Tube Coater Relationship Specialty Start Date End Date Artur Henning DO [address] [place] [address] PCP - General Internal Medicine 03/16/20
--- OUTSIDE RECORDS SUMMARY | 2025-03-05 10:36 | XMS_ITS | Clinical Summary ---
Author Organization [facility] Carlos A Moon Address [address] [place] [address] Care Team Providers Care Loading Machine Tool Setter Name Role Phone Tommy Gee MD Primary Care Provider [phone] Allergies Active Allergy Reactions Criticality Noted Date [...] Encounters Date Type Department Care Team Description 02/03/2025 9:45 AM CDT Office Visit [facility] Oncology and Hematology - [place] [address] [place] [address] Sonu Davis MD Chronic anemia (Primary Dx) 01/28/2025 Orders Only [facility] Oncology and Hematology [facility] [address] [place] [address] Sonu Davis MD 01/09/2025 Orders Only [facility] Oncology and Hematology [place] [address] [place] [address] Sonu Davis MD 12/25/2024 External Device Data STL ABSTRACTION Provider, Abstract 12/04/2024 External Device Data STL ABSTRACTION Provider, [...] Sign Reading Time Taken Comments Blood Pressure 129/74 02/03/2025 9:32 AM CDT Pulse 75 02/03/2025 9:32 AM CDT Temperature 36.4 C (97.6 F) 02/03/2025 9:32 AM CDT Respiratory Rate 12 02/03/2025 9:32 AM CDT Oxygen Saturation 96% 02/03/2025 9:32 AM CDT Inhaled Oxygen Concentration - - Weight 92.7 kg (204 lb 6.4 oz) 02/03/2025 9:32 A M CDT Height 167.6 cm (5' 6) 07/12/2023 11:22 AM INTERACTIVE ART DIRECTOR Body Mass Index 32.99 07/12/2023 11:22 AM INTERACTIVE ART DIRECTOR Plan of Treatment Upcoming Encounters Date Type Department Care Team (Late st Contact Info) Description 08/05/2025 10:00 AM CDT Office Visit [facility] Oncology and Hematology - [place] [address] [facility] [address] [place] [address] Sonu Davis MD [address] [facility] [address] [place] [address] Health Maintenance Due Date Last Done Comments DIABETES ANNUAL FOOT EXAM 1967 DIABETES MICROALBUMIN ANNUAL SCREEN 1967 LDL CHOLESTEROL ANNUAL 1967 FIT-DNA Q 3 years 1994 FIT/FOBT Q 1 year 1994 Flex Sig/CT Colonography Q 5 years 1994 Lung Cancer Screening 1999 ZOSTER VACCINE (1 of 2) 1999 DIABETES ANNUAL RETINAL EXAM 09/13/2015 09/12/2014 OSTEOPOROSIS SCREENING 12/18/2015 1, 12/17/2010, 12/17/2010 DIABETES HBA1C Q 6 MONTHS 06/09/2016 12/08/2015 DTAP/TDAP/TD VACCINES (1 - Tdap) 11/26/2021 11/26/19 COLORECTAL SCREENING 09/14/2022 09/14/2012 Colorectal Cancer Screening 09/14/2022 RSV VACCINE (60+ or ) (1 - 1-dose 75+ series) 2024 INFLUENZA VACCINE (#1) 2024 2, 04/12/2021, 03/13/2021, Additional history exists COVID-19 Vaccine (5 - 2024-2 6 season) 2025 02/14/2022, 04/12/2021, 08/14/2020, Additional history exists PNEUMOCOCCAL VACCINE 50+ YEARS Completed 0 07/30/2018, 05/29/2017, 05/22/2013 Procedures Procedure Name Priority Date/Time Associated Diagnosis Comments BASIC METABOLIC PANEL Routine 01/28/2025 3:49 PM CDT CBC WITH AUTODIFFERENTIAL Routine 2024 3:37 PM CDT IRON, TIBC, AND PERCENT SATURATION Routine 01/09/2025 3:17 PM CDT CBC WITH AUTODIFFERENTIAL Routine 2024 11:52 AM CDT from Last 3 Months Results * BASIC METABOLIC PANEL (01/28/2025 3:49 PM CDT) Blood us Sonu Davis MD CHEMISTRY ORDERABLES Final Resu lt * CBC WITH AUTODIFFERENTIAL (01/28/2025 3:37 PM CDT) Only the most recent of2 resultswithin the time period is included. Blood us Sonu Davis MD HEMATOLOGY ORDERABLES Final Res ult * IRON, TIBC, AND PERCENT SATURATION (01/09/2025 3:17 PM CDT) Blood us Sonu Davis MD CHEMISTRY ORDERABLES Final Resu lt from Last 3 Months Insurance Care Teams Loading Machine Tool Setter Relationship Specialty Start Date End Date Tommy Gee MD [address] [place] [address] PCP - General Family Practice 07/11/23
[2025-03-05 13:36] LABS: Albumin Level 4.0 g/dL (3.5-5.1); Anion Gap 10 mmol/L (4-12); Blood Urea Nitrogen 22 mg/dL (7-17); Calcium 9.7 mg/dL (8.4-10.2); Carbon Dioxide 26 mmol/L (22-30); Chloride 101 mmol/L (98-107); Estimated Glomerular Filt Rate 41; Glucose 184 mg/dL (65-110); Magnesium 2.1 mg/dL (1.6-2.3); Potassium 4.8 mmol/L (3.4-5.0); Sodium 137 mmol/L (137-145)
[2025-03-05 13:49] LABS: Parathyroid Intact 32.6 pg/mL (14.5-75.2)
[2025-03-05 13:59] LABS: Total Protein Urine Random 6 mg/dL; Ur Ttl Prot Creatinine Ratio 0.10 mg/mg (0-0.20)
== END 2025-03-05 09:27 | disposition home or self-care (01) ==
LOC: ANHLAB 09:28
PROVIDERS: PCP Nurse Practitioner Family; Visit Provider Internal Medicine Nephrology
DX: E11.22 Type 2 diabetes mellitus with diabetic chronic kidney disease (principal); I12.9 Hypertensive chronic kidney disease with stage 1 through stage 4 chronic kidney disease, or unspecified chronic kidney disease; N18.31 Chronic kidney disease, stage 3a; E55.9 Vitamin D deficiency, unspecified; N25.81 Secondary hyperparathyroidism of renal origin
CPT/HCPCS: 36415; 80069; 82306; 82570; 83735; 83970; 84156

== ENCOUNTER 2025-04-23 09:31 | Outpatient (CLI) | payer MEDICARE, MEDICAID, SELFPAY ==
[2025-04-23 09:55] LABS: Hematocrit 38.2 % (37.0-47.0); Hemoglobin 11.9 g/dL (12.0-15.0); Immature Granulocyte Percent A 0.3 % (0-0.5); Lymphocytes Absolute Auto 1.08 K/mm3 (0.9-3.2); Mean Corpuscular HGB Conc 31.2 g/dl (32-36); Mean Corpuscular Hemoglobin 28.2 pg (26-34); Mean Corpuscular Volume 90.5 fl (80-100); Nucleated Red Blood Cells Absolute Auto 0.000 K/mm3 (0.0-0.012); Nucleated Red Blood Cells Perc 0.0 % (0.0-0.2); Platelet Count Result 175 k/mm3 (150-375); Red Blood Count 4.22 M/mm3 (4.2-5.4); White Blood Count 6.4 K/mm3 (4.5-10.0)
--- OUTSIDE RECORDS SUMMARY | 2025-04-23 10:23 | XMS_ITS | Clinical Summary ---
Author Organization [facility] Carlos A Moon Address [address] [place] [address] Care Team Providers Care Section Forest Fire Warden Name Role Phone Tommy Gee MD Primary Care Provider [phone] Allergies Active Allergy Reactions Criticality Noted Date [...] Encounters Date Type Department Care Team Description 04/08/2025 External Device Data STL ABSTRACTION Provider, Abstract 02/03/2025 9:45 AM CDT Office Visit [facility] Oncology and Hematology - [place] [address] [place] [address] Sonu Davis MD Chronic anemia (Primary Dx) 01/28/2025 Orders Only [facility] Oncology and Hematology - [place] [address] [place] [address] Sonu Davis MD from Last 3 Months Family History Medical [...] Smoking Tobacco: Former Cigarettes 1 55 1 96 - 2016 Smokeless Tobacco: Never Tobacco Cessation:Counseling Given: Not [...] 167.6 cm (5' 6) 07/12/2023 11:22 AM BREAST PULLER Body Mass Index 32.99 07/12/2023 11:22 AM BREAST PULLER Plan of Treatment Upcoming Encounters Date Type Department Care Team (Late st Contact Info) Description 08/05/2025 10:00 AM CDT Office Visit [facility] Oncology and Hematology - [place] [address] [place] [address] Sonu Davis MD [address] [facility] [address] [place] [address] Health Maintenance Due Date Last Done [...] WITH AUTODIFFERENTIAL Routine 2024 3:37 PM CDT from Last 3 Months Results * BASIC METABOLIC PANEL (01/28/2025 3:49 PM CDT) Blood us Sonu Davis MD CHEMISTRY ORDERABLES Final Resu lt * CBC WITH AUTODIFFERENTIAL (01/28/2025 3:37 PM CDT) Blood us Sonu Davis MD HEMATOLOGY ORDERABLES Final Res ult from Last 3 Months Insurance [facility] [id number] Care Teams Section Forest Fire Warden Relationship Specialty Start Date End Date Tommy Gee MD [address] [place] [address] PCP - General Family Practice 07/11/23
--- OUTSIDE RECORDS SUMMARY | 2025-04-23 10:23 | XMS_ITS | Clinical Summary ---
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 Name Role Phone María Aranda Damian DO Unavailable [phone] Christian Jaimes DO Unavailable [phone] Artur Henning DO Primary Care Provider [phone] Allergies Active Allergy Reactions Criticality Noted Date [...] 2) 1999 Diabetes: Eye Exam 09/13/2015 09/12/2014 Medicare Initial AWV [id number] 05/22/2016 Diabetes: Hemoglobin A1c 06/09/2016 016, 06/09/2015, 01/03/2013, Additional history exists Diabetes: Nephropathy Screening 12/07/2016 12/08/2015, 06/09/2015, 01/03/2013, Additional history exists Colonoscopy 09/14/2022 09/14/2012 Colorectal Cancer Screening 09/14/2022 Respiratory Syncytial Virus (RSV) Immunization (Adult) (1 - 1-dose 75+ series) 2024 Influenza Immunization (#1) 01/20/202502/20, 07/30/2018, 05/29/2017, Additional history exists SARS-COV-2 Immunization ( season) 2025 04/12/2021, 08/14/2020, 07/24/2020 DEXA Bone Density Discontinued 12/17/2010, , 12/17/2008, [...] EXAM Routine 09/12/2014 [facility] COLONOSCOPY Routine 09/14/2012 [facility] BONE DENSITOMETRY AXIAL SKELETON Routine 12/17/2010 [...] made to exams dated: 09/12/2014 and 12/17/2010 [facility]. BREAST TISSUE: The tissue of both breasts [...] is recommended. Yury Sales M.D. nh/:03/07/2016 14:50:43 Repatcher: Tameka España(Kash), [facility] letter sent: Normal Exam Reading location: [facility] BI-RADS: 1 Negative Procedure Note Yury Sales MD - 03/08/2016 - TRACY DIAG BILATERAL DIGITAL W CAD BILATERAL DIGITAL DIAGNOSTIC MAMMOGRAM WITH CAD WITH LATEROMEDIAL MEDIOLATERAL OBLIQUE CRANIOCAUDAL: 03/07/2016 The study was acquired using digital technology and interpreted from soft copy. Current study was also evaluated with Tweegee version 7.2. CLINICAL: Diagnostic study. 65-year-old woman presents for evaluation of focal pain in the medial left breast, first noted in September 2015 with an associated lump that has since resolved, and annual mammography of the right breast. No personal history of cancer. No family history of breast cancer. COMPARISONS: Comparison is made to exams dated: 09/12/2014 and 12/17/2010 [facility]. BREAST TISSUE: The tissue of both breasts [...] screening mammogram is recommended. Yury Sales M.D. ny/:03/07/2016 14:50:43 Repatcher: Tameka España(Kash), [facility] letter sent: Normal Exam Reading location: [facility] BI-RADS: 1 Negative us Mauricio Holm MD IMG MAMMO ORDERABLES Noreen l Result * (ABNORMAL) HEMOGLOBIN A1C W/ ESTIMATED GLUCOSE (12/08/2015 10:40 AM CDT) Pathologist [facility] HGB-A1C 6.6(H) 4.4 - 6.4 % 12/08/2015 3:28 PM CDT [facility] Est Average Glucose 142.7 mg/dL 12/08/2015 3:28 PM CDT [facility] Blood specimen (specimen) Venipuncture / Unknown 12/08/2015 10:40 AM CDT 12/08/2015 10:40 AM CDT Narrative [facility] - 12/08/2015 3:28 PM CDT HEMOGLOBIN A1C: DIABETIC PATIENTS: WELL-CONTROLLED: 6.2 - 7.0 INTERMEDIATE WELL-CONTROLLED: 7.0 - 9.0 POORLY-CONTROLLED: >9.0 us Mauricio Holm MD CHEMISTRY ORDERABLES Noreen l Result [facility] [address] [place] [address] * (ABNORMAL) CMP (COMPREHENSIVE METABOLIC PANEL) (12/08/2015 10:40 AM CDT) [facility] SODIUM 137 131 - 143 mmol/L 12/08/2015 3:47 PM CDT [facility] POTASSIUM 3.7 3.5 - 5.1 mmol/L 12/08/2015 3:47 PM CDT [facility] CHLORIDE 102 100 - 110 mmol/L 12/08/2015 3:47 PM CDT [facility] CO2, VENOUS 25 22 - 32 mmol/L 12/08/2015 3:47 PM CDT [facility] ANION GAP 13.7 8.0 - 20.0 mmol/L 12/08/2015 3:47 PM CDT [facility] GLUCOSE 144(H) 70 - 105 mg/dL 12/08/2015 3:47 PM CDT [facility] BUN 12 10 - 31 mg/dL 12/08/2015 3:47 PM CDT [facility] CREATININE, BLOOD 0.58(L) 0.60 - 1.30 mg/dL 12/08/2015 3:47 PM CDT [facility] BUN/CREATININE RATIO 21(H) 12 - 20 ratio 12/08/2015 3:47 PM CDT [facility] TOTAL PROTEIN 7.2 6.0 - 8.3 g/dL 12/08/2015 3:47 PM CDT [facility] ALBUMIN 3.8 3.5 - 5.2 g/dL 12/08/2015 3:47 PM CDT [facility] A/G RATIO 1.1 1.0 - 2.0 12/08/2015 3:47 PM CDT [facility] CALCIUM 9.4 8.9 - 10.3 mg/dL 12/08/2015 3:47 PM CDT [facility] T BILI 0.4 0.3 - 1.2 mg/dL 12/08/2015 3:47 PM CDT [facility] SGOT (AST) 40(H) 1 - 32 U/L 12/08/2015 3:47 PM CDT [facility] SGPT (ALT) 23 1 - 33 U/L 12/08/2015 3:47 PM CDT [facility] ALKALINE PHOSPHATASE 106(H) 35 - 105 U/L 12/08/2015 3:47 PM CDT [facility] GFR, EST. NONAFRICAN >60 >=60 12/08/2015 3:47 PM CDT [facility] GFR, EST. >60 >=60 12/08/2015 3:47 PM CDT [facility] Comment: Creatinine Clearance is the preferred criteria for selecting drug dose adjustments in renally impaired patients. The GFR is provided as additional pertinent clinical information. GFR is reported in mL/min/1.73 sq m. Blood specimen (specimen) Venipuncture / Unknown 12/08/2015 10:40 AM CDT 12/08/2015 10:40 AM CDT us Mauricio oHlm MD CHEMISTRY ORDERABLES Noreen neal Result [facility] [address] [place] [address] * DILATED EYE EXAM (09/12/2014) us Unknown Provider PROCEDURE/MINOR SURGICAL ORDERA BLES Final Result * COLONOSCOPY (09/14/2012) us Fan Dougherty MD PROCEDURE/MINOR SURGICAL ORDER SAMUEL Final Result * [facility] BONE DENSITOMETRY AXIAL SKELETON (12/17/2010) Anatomical Region Laterality Modality BODY N/A Other us Fan Dougherty MD IMG DEXA ORDERABLES Final Resu lt from Last 3 Months or Most Recently Relevant to Health Maintenance Insurance MEDICAID [place] MEDICARE C [employer] on file Care Teams Typecasting Machine Operator Relationship Specialty Start Date End Date Artur Henning DO [address] [facility] [address] [place] [address] PCP - General Internal Medicine 10/08/20 María Aranda DO [address] [place] [id number] Hospitalist Internal Medicine 01/13/17 Christian Jaimes DO [address] [place] [id number] Consulting Physician Gastroenterology 01/13/17
--- OUTSIDE RECORDS SUMMARY | 2025-04-23 10:23 | XMS_ITS | Clinical Summary ---
Author Organization [facility] Address [address] [place] [address] Care Team Providers Care Music Education Adjunct Professor Name Role Phone Artur Henning DO Primary Care Provider Source Comments [facility],non-owned Affiliates and Associated Physician Practices is amultiple site organization consisting of ambulatory clinics and hospital sitesin [place], [place], [place] and [place]. This disclosure is being madepursuant to the Care Everywhere program and may not contain all information available regarding this patient. Last updated [address] Allergies No known active allergies Immunizations Immunization Administration Dates Next Due INFLUENZA VACCINE, HIGH-DOSE , QUADR. 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 Gender Identity Not on file Sexual Orientation [...] - 1-dose 75+ series) 2024 COVID-19 VACCINE (2024-2 6 season) 2025 INFLUENZA VACCINE (#1) 2025 , [...] patient's age to complete this topic Insurance [facility] MANAGED MEDICARE ADV MANAGED MEDICARE ADV * Guarantor: ANTONIA ROSALES Account Type Relation to Patient Date of Phone Billing Address Personal/Family [address], [place] * Guarantor: ANTONIA ROSALES Account Type Relation to Patient Date of Phone Billing Address Personal/Family [address], [place] * Guarantor: ANTONIA ROSALES Account Type Relation to Patient Date of Phone Billing Address Personal/Family [address], [place] Care Teams Music Education Adjunct Professor Relationship Specialty Start Date End Date Artur Henning DO [address] [place] [address] PCP - General Internal Medicine 03/16/20
[2025-04-23 12:21] LABS: Alanine Aminotransferase 25 U/L (6-35); Albumin Level 4.1 g/dL (3.5-5.1); Alkaline Phosphatase 128 U/L (38-126); Anion Gap 8 mmol/L (4-12); Aspartate Amino Transferase 60 U/L (14-36); Bilirubin,Total 0.6 mg/dL (0.2-1.3); Blood Urea Nitrogen 24 mg/dL (7-17); Calcium 9.5 mg/dL (8.4-10.2); Carbon Dioxide 26 mmol/L (22-30); Chloride 104 mmol/L (98-107); Cholesterol 106 mg/dL (0-200); Estimated Glomerular Filt Rate 39; Glucose 183 mg/dL (65-110); HDL Direct 25 mg/dL; Potassium 4.1 mmol/L (3.4-5.0); Sodium 138 mmol/L (137-145); Total Protein 7.5 g/dL (6.3-8.2); Triglycerides 163 mg/dL (<150)
[2025-04-23 12:56] LABS: Thyroid Stimulating Hormone 1.810 uIU/mL (0.465-4.680)
[2025-04-23 12:58] LABS: Hemoglobin A1C 7.5 % (<5.7)
== END 2025-04-23 09:32 | disposition home or self-care (01) ==
LOC: ANHLAB 09:32
PROVIDERS: PCP Nurse Practitioner Family; Visit Provider Nurse Practitioner Family
DX: E11.22 Type 2 diabetes mellitus with diabetic chronic kidney disease (principal); E03.9 Hypothyroidism, unspecified; D50.9 Iron deficiency anemia, unspecified; I12.9 Hypertensive chronic kidney disease with stage 1 through stage 4 chronic kidney disease, or unspecified chronic kidney disease; N18.31 Chronic kidney disease, stage 3a
CPT/HCPCS: 36415; 80053; 80061; 83036; 84443; 85025